=== PATIENT | male | born 1940 | race Caucasian/White ===

== ENCOUNTER 2020-01-23 13:34 | Emergency (ER) | payer MEDICARE, SELFPAY ==
--- NOTE | ~2020-01-23 | CT_ITS ---
EXAMINATION: CT brain wo con DATE: 01/23/2020 13:55 INDICATION: Dizziness. Head injury. TECHNIQUE: Computed tomography (CT) of the head was performed without intravenous contrast. The mA wa s adjusted according to patient size. Iterative reconstruction technique was employed. The dose-lengt h product was 681.00 mGy-cm. COMPARISON: Head CT 05/21/2015 FINDINGS: There are small old infarcts in the cerebellum bilaterally. There are scattered areas of lo w attenuation in the cerebral white matter. There is no intracranial hemorrhage, acute infarction, or abnormal intracranial mass lesion. The ventricles are normal in size. There are likely changes of oc ular lens replacement surgeries. There is mild mucosal thickening in the paranasal sinuses. The masto id air cells are normal. IMPRESSION: 1. Small old infarcts in the cerebellum. 2. Worsened moderate nonspecific cerebral white matter disease, which likely represents chronic small vessel ischemic disease. Reviewed, dictated and finalized at location A. IMPRESSION: 1. Small old infarcts in the cerebellum. 2. Worsened moderate nonspecific cerebral white matter disease, which likely re presents chronic small vessel ischemic disease.
--- NOTE | 2020-01-23 13:40 | ECG_ITS ---
Measurements Intervals [place] Rate: 73 P: 68 TN: 173 QRS: -27 QRSD: 85 T: 59 QT: 433 QTc: 480 Interpretive Statements SINUS RHYTHM ATRIAL AND VENTRICULAR PREMATURE COMPLEXES BORDERLINE ST-T WAVE ABNORMALITY- LATERAL LEADS BASELINE ARTIFACT- I, II, III, AVR, AVL, AVF, V1-V3 ABNORMAL ECG Electronically Signed On 01-23-2020 14:09:04 CDT by Chon Mckenzie D.O.
--- NOTE | 2020-01-23 13:43 | ED.FALL ---
HPI - Fall General Chief Complaint: Head Injury Stated Complaint: ambulance Time Seen by Provider: 01/23/20 13:35 Source: patient Mode of arrival: ambulatory Limitations: no limitations History of Present Illness HPI Narrative: 79-year-old man brought to the emergency department by EMS after he called because he was feeling dizzy. He described the dizziness as things moving back and forth in his vision. He fell this morning but he is unclear as to whether the dizziness started before or after he fell. He denies chest pain, loss consciousness, shortness breath, nausea, vomiting, neck pain, extremity pain, focal pain, abdominal pain, change in appetite, dysuria or recent cough or cold symptoms. EMS states that he was able to climb onto the stretcher and transfer from the stretcher to the ED [facility] without assistance. MD complaint: fall Onset (ago): hour(s) Fall from: standing Fall witnessed: no Place fall occurred: home Loss of consciousness: none Prolonged down time: no Symptoms prior to fall: dizziness Location of injury: head Severity: moderate Associated symptoms (after fall): vertigo Related Data Home Medications Medication Instructions Recorded Confirmed amlodipine 10 mg PO DAILY 01/23/20 01/23/20 tamsulosin 0.4 mg PO DAILY 01/23/20 01/23/20 Allergies Allergy/AdvReac Type Severity Reaction Status Date / Time No Known Allergies Allergy Verified 01/23/20 13:47 Review of Systems Constitutional: Constitutional: Denies chills, Denies fever(s) and Denies weakness Eyes: Eyes: Denies change in vision and Denies photophobia ENT: Denies dysphagia, Denies nasal congestion and Denies sore throat Cardiovascular: Cardiovascular: Denies chest pain, Denies rapid heart rate, Denies radiating jaw, neck or arm pain and Denies slow heart rate Respiratory: Respiratory: Denies cough, Denies dyspnea and Denies wheezing Gastrointestinal: Gastrointestinal: Denies abdominal pain, Denies diarrhea, Denies nausea and Denies vomiting Genitourinary: Genitourinary: Denies dysuria and Denies urinary frequency Integumentary/Breasts: Skin/Breast: Denies pruritus, Denies erythema and Denies rash Neurologic: Reports vertigo, Denies dizziness, Denies syncope, Denies focal weakness and Denies numbness Psychiatric: Psychiatric: Denies anxiety and Denies depression Endocrine: Endocrine: Denies polydipsia and Denies polyuria Allergic/Immunologic: Allergic/Immunologic: Denies lip swelling and Denies wheezing [facility] Past Medical History Medical History CVA (cerebral vascular accident) Prostate cancer Surgical History Surgical History History of hip surgery Social History Social History (Updated 01/23/20 @ 13:49 by Deuce Pandey MD) Smoking status: Never smoker Alcohol intake: never Substance use: never Living arrangements: with family Occupation/Education: retired Gender identity (if verbalized by the patient): Male Exam Const: General: no acute distress and alert Nutritional Appearance: thin Orientation/consciousness: patient oriented x3 Limitations: no limitations HENMT: Ears: external ears normal, TM's normal bilaterally and EAC's normal Mouth: Yes Normal oral and palatal mucosa present and Yes moist mucous membranes Throat: posterior oropharynx normal and uvula midline Eyes: Conjunctivae: conjunctivae normal Pupils: Equal, round and reactive pupils present EOM: EOMs intact bilaterally Neck: Neck: normal visual inspection and no lymphadenopathy Other: Nontender Resp: Effort & Inspection: normal respiratory effort and not labored Auscultation: clear to auscultation bilaterally, no rales, no rhonchi and no wheezes Cardio: Rate: regular rate Rhythm: regular rhythm Heart sounds: no murmurs GI: Auscultation: normal bowel sounds Other: nontender, nondistended. No masses. Skin: G
[2020-01-23 13:54] VITALS: PULSE 78; RESP 18; TEMP 36.6; O2SAT 100
[2020-01-23 14:07] LABS: Basophils Absolute Auto 0.04 K/mm3 (0.00-0.10); Basophils Percent Auto 0.8 % (0.0-1.0); Eosinophils Absolute Auto 0.17 K/mm3 (0.02-0.50); Eosinophils Percent Auto 3.3 % (1.0-6.0); Hematocrit 41.1 % (37.0-46.0); Hemoglobin 13.4 g/dL (12.4-15.3); Immature Granulocyte Absolute 0.02 K/mm3 (0.00-0.00); Immature Granulocyte Percent A 0.4 % (0.0-0.0); Lymphocytes Percent Auto 13.5 % (18.0-42.0); Mean Corpuscular HGB Conc 32.6 g/dL (32.0-36.0); Mean Corpuscular Hemoglobin 29.2 pg (27.0-31.0); Mean Corpuscular Volume 89.5 fL (78.0-102.0); Mean Platelet Volume 11.2 fl (8.7-11.0); Monocytes Absolute Auto 0.36 K/mm3 (0.10-0.90); Neutrophils Absolute Auto 3.9 K/mm3 (1.7-7.2); Platelet Count Result 150 K/mm3 (150-420); Red Blood Count 4.59 M/mm3 (4.70-6.10); Red Cell Distribution Width 14.2 % (11.6-14.4); White Blood Count 5.2 K/mm3 (4.8-10.8)
[2020-01-23 14:20] LABS: INR 1.1; Partial Thromboplastin Time 25.7 SEC (22.3-31.6); Prothrombin Time 10.9 Seconds (9.64-11.0)
[2020-01-23 14:24] LABS: Creatine Kinase 95 U/L (39-308); Troponin I < 0.02 ng/mL (0.00-0.056)
[2020-01-23 14:58] LABS: Alanine Aminotransferase 13 U/L (16-63); Albumin Level 3.6 g/dL (3.4-5.0); Alkaline Phosphatase 52 U/L (46-116); Anion Gap 15.3 mmol/L (7-16); Aspartate Amino Transferase 18 U/L (15-37); Bilirubin,Total 0.8 mg/dL (0.00-1.00); Blood Urea Nitrogen 15 mg/dL (7-18); Calcium 8.6 mg/dL (8.5-10.1); Carbon Dioxide 25 mmol/L (21-32); Chloride 105 mmol/L (98-108); Estimated CRCL calculation 38 ml/min; Estimated Glomerular Filt Rate 52; Glucose 112 mg/dL (70-99); Osmolality Calculated 295 mOsm/kg (285-295); Potassium 3.3 mmol/L (3.5-5.1); Sodium 142 mmol/L (136-145); Total Protein 6.9 g/dL (6.4-8.2)
[2020-01-23 15:41] VITALS: BP 118/84; PULSE 82; RESP 18; O2SAT 98
== END 2020-01-23 15:42 | disposition home or self-care (01) ==
PROVIDERS: Emergency Provider Emergency Medicine
DX: S09.90XA Unspecified injury of head, initial encounter (principal); R42 Dizziness and giddiness; E87.6 Hypokalemia; Z86.73 Personal history of transient ischemic attack (TIA), and cerebral infarction without residual deficits; Z85.46 Personal history of malignant neoplasm of prostate; W19.XXXA Unspecified fall, initial encounter
CPT/HCPCS: 36415; 70450; 80053; 82550; 84484; 85025; 85610; 85730; 93005; 99284

== ENCOUNTER 2020-02-15 08:54 | Outpatient (CLI) | payer MEDICARE, SELFPAY ==
[2020-02-15 09:30] LABS: Basophils Absolute Auto 0.05 K/mm3 (0.00-0.10); Basophils Percent Auto 0.9 % (0.0-1.0); Eosinophils Percent Auto 5.4 % (1.0-6.0); Hematocrit 37.5 % (37.0-46.0); Hemoglobin 11.9 g/dL (12.4-15.3); Immature Granulocyte Absolute 0.02 K/mm3 (0.00-0.00); Immature Granulocyte Percent A 0.4 % (0.0-0.0); Lymphocytes Percent Auto 19.9 % (18.0-42.0); Mean Corpuscular HGB Conc 31.7 g/dL (32.0-36.0); Mean Corpuscular Hemoglobin 29.2 pg (27.0-31.0); Mean Corpuscular Volume 92.1 fL (78.0-102.0); Mean Platelet Volume 11.2 fl (8.7-11.0); Monocytes Absolute Auto 0.49 K/mm3 (0.10-0.90); Monocytes Percent Auto 8.8 % (2.0-11.0); Neutrophils Absolute Auto 3.6 K/mm3 (1.7-7.2); Neutrophils Percent Auto 64.6 % (50.0-70.0); Platelet Count Result 157 K/mm3 (150-420); Red Blood Count 4.07 M/mm3 (4.70-6.10); Red Cell Distribution Width 14.6 % (11.6-14.4); White Blood Count 5.5 K/mm3 (4.8-10.8)
[2020-02-15 10:00] LABS: Blood Urea Nitrogen 30 mg/dL (7-18); Carbon Dioxide 29 mmol/L (21-32); Chloride 108 mmol/L (98-108); Cholesterol 144 mg/dL (0-200); Estimated Glomerular Filt Rate 47; Glucose 84 mg/dL (70-99); HDL Direct 53 mg/dL (40-60); LDL Cholesterol Calculated 81 mg/dL (<130); Osmolality Calculated 307 mOsm/kg (285-295); Sodium 146 mmol/L (136-145); Triglycerides 50 mg/dL (0-150)
== END 2020-02-15 08:55 | disposition home or self-care (01) ==
PROVIDERS: PCP Family Medicine; Visit Provider Family Medicine
DX: E78.2 Mixed hyperlipidemia (principal); I10 Essential (primary) hypertension; E83.42 Hypomagnesemia
CPT/HCPCS: 36415; 80048; 80061; 83735; 85025

== ENCOUNTER 2020-05-08 13:10 | Outpatient (CLI) | payer MEDICARE, SELFPAY ==
[2020-05-08 14:03] LABS: Alanine Aminotransferase 17 U/L (16-63); Albumin Level 3.7 g/dL (3.4-5.0); Alkaline Phosphatase 53 U/L (46-116); Anion Gap 15.2 mmol/L (7-16); Aspartate Amino Transferase 19 U/L (15-37); Blood Urea Nitrogen 22 mg/dL (7-18); Calcium 8.3 mg/dL (8.5-10.1); Carbon Dioxide 23 mmol/L (21-32); Chloride 103 mmol/L (98-108); Estimated Glomerular Filt Rate 35; Glucose 83 mg/dL (70-99); Osmolality Calculated 286 mOsm/kg (285-295); Potassium 4.2 mmol/L (3.5-5.1); Sodium 137 mmol/L (136-145); Total Protein 6.7 g/dL (6.4-8.2)
== END 2020-05-08 13:11 | disposition home or self-care (01) ==
LOC: CHSLAB 13:16
PROVIDERS: PCP Family Medicine; Visit Provider Urology
DX: N42.9 Disorder of prostate, unspecified (principal); N40.1 Benign prostatic hyperplasia with lower urinary tract symptoms
CPT/HCPCS: 36415; 80053; 84153

== ENCOUNTER 2020-05-26 10:14 | Outpatient (CLI) | payer MEDICARE, SELFPAY ==
[2020-05-26 10:41] LABS: Add Urine Microscopic? YES; Appearance Urine Clear (Clear); Basophils Absolute Auto 0.06 K/mm3 (0.00-0.10); Basophils Percent Auto 1.1 % (0.0-1.0); Bilirubin Urine 1+ (Negative); Blood Urine Negative (Negative); Color Urine Yellow (Yellow); Eosinophils Percent Auto 3.6 % (1.0-6.0); Glucose Urine UA Negative (Negative); Hematocrit 38.9 % (37.0-46.0); Hemoglobin 12.5 g/dL (12.4-15.3); Immature Granulocyte Absolute 0.02 K/mm3 (0.00-0.00); Immature Granulocyte Percent A 0.4 % (0.0-0.0); Ketones Urine Trace (Negative); Leukocyte Esterase Ur Negative (Negative); Lymphocytes Percent Auto 23.1 % (18.0-42.0); Mean Corpuscular HGB Conc 32.1 g/dL (32.0-36.0); Mean Corpuscular Hemoglobin 28.9 pg (27.0-31.0); Mean Platelet Volume 11.4 fl (8.7-11.0); Monocytes Absolute Auto 0.44 K/mm3 (0.10-0.90); Monocytes Percent Auto 7.8 % (2.0-11.0); Neutrophils Absolute Auto 3.6 K/mm3 (1.7-7.2); Nitrate Urine Negative (Negative); Platelet Count Result 156 K/mm3 (150-420); Protein Urine Negative (Negative); Red Blood Count 4.32 M/mm3 (4.70-6.10); Red Cell Distribution Width 13.5 % (11.6-14.4); Specific Grav Ur 1.025 (1.010-1.020); White Blood Count 5.6 K/mm3 (4.8-10.8); pH Urine 5.5 (5.0-8.0)
[2020-05-26 10:47] LABS: Bacteria Urine 1+ /hpf; RBC Urine 0-2 /hpf (0-2); Squamous Epithelial Cell Urine Few /hpf (Few); WBC Urine 0-3 /hpf (0-3)
[2020-05-26 10:50] LABS: MALB Creatinine Ratio 2.2 mg/g (0-30)
[2020-05-26 11:19] LABS: Alanine Aminotransferase 15 U/L (16-63); Albumin Level 3.4 g/dL (3.4-5.0); Alkaline Phosphatase 58 U/L (46-116); Anion Gap 6 mmol/L (8-16); Aspartate Amino Transferase 17 U/L (15-37); Bilirubin,Total 0.7 mg/dL (0.00-1.00); Blood Urea Nitrogen 28 mg/dL (7-18); Calcium 7.7 mg/dL (8.5-10.1); Carbon Dioxide 26 mmol/L (21-32); Chloride 105 mmol/L (98-108); Creatine Kinase 68 U/L (39-308); Estimated Glomerular Filt Rate 39; Glucose 94 mg/dL (70-99); Osmolality Calculated 289 mOsm/kg (285-295); Potassium 4.6 mmol/L (3.5-5.1); Sodium 137 mmol/L (136-145); Thyroid Stimulating Hormone 1.57 uIU/mL (0.36-3.74); Total Protein 6.6 g/dL (6.4-8.2)
== END 2020-05-26 10:15 | disposition home or self-care (01) ==
LOC: CHSLAB 10:16
PROVIDERS: PCP Family Medicine; Visit Provider Family Medicine
DX: E78.2 Mixed hyperlipidemia (principal); I10 Essential (primary) hypertension
CPT/HCPCS: 36415; 80053; 81001; 82043; 82550; 84443; 85025

== ENCOUNTER 2020-09-16 10:07 | Outpatient (CLI) | payer MEDICARE, SELFPAY ==
[2020-09-16 10:21] LABS: Basophils Absolute Auto 0.04 K/mm3 (0.00-0.10); Basophils Percent Auto 0.6 % (0.0-1.0); Eosinophils Percent Auto 1.6 % (1.0-6.0); Hematocrit 36.1 % (37.0-46.0); Hemoglobin 11.1 g/dL (12.4-15.3); Immature Granulocyte Absolute 0.03 K/mm3 (0.00-0.00); Immature Granulocyte Percent A 0.5 % (0.0-0.0); Lymphocytes Absolute Auto 0.89 K/mm3 (1.10-4.50); Lymphocytes Percent Auto 13.8 % (18.0-42.0); Mean Corpuscular HGB Conc 30.7 g/dL (32.0-36.0); Mean Corpuscular Hemoglobin 27.4 pg (27.0-31.0); Mean Corpuscular Volume 89.1 fL (78.0-102.0); Mean Platelet Volume 10.9 fl (8.7-11.0); Monocytes Absolute Auto 0.45 K/mm3 (0.10-0.90); Neutrophils Absolute Auto 4.9 K/mm3 (1.7-7.2); Neutrophils Percent Auto 76.5 % (50.0-70.0); Platelet Count Result 175 K/mm3 (150-420); Red Blood Count 4.05 M/mm3 (4.70-6.10); Red Cell Distribution Width 13.5 % (11.6-14.4); White Blood Count 6.4 K/mm3 (4.8-10.8)
[2020-09-16 11:07] LABS: Anion Gap 10 mmol/L (8-16); Blood Urea Nitrogen 25 mg/dL (7-18); Calcium 8.8 mg/dL (8.5-10.1); Carbon Dioxide 25 mmol/L (21-32); Chloride 102 mmol/L (98-108); Estimated Glomerular Filt Rate 41; Glucose 91 mg/dL (70-99); Osmolality Calculated 288 mOsm/kg (285-295); Potassium 4.4 mmol/L (3.5-5.1); Sodium 137 mmol/L (136-145)
== END 2020-09-16 10:08 | disposition home or self-care (01) ==
PROVIDERS: PCP Family Medicine; Visit Provider Family Medicine
DX: I10 Essential (primary) hypertension (principal)
CPT/HCPCS: 36415; 80048; 85025

== ENCOUNTER 2020-11-06 11:57 | Outpatient (CLI) | payer MEDICARE, SELFPAY ==
[2020-11-06 12:44] LABS: Alanine Aminotransferase 12 U/L (16-63); Albumin Level 3.7 g/dL (3.4-5.0); Alkaline Phosphatase 52 U/L (46-116); Anion Gap 8 mmol/L (8-16); Aspartate Amino Transferase 12 U/L (15-37); Bilirubin,Total 0.6 mg/dL (0.00-1.00); Blood Urea Nitrogen 27 mg/dL (7-18); Calcium 8.4 mg/dL (8.5-10.1); Carbon Dioxide 24 mmol/L (21-32); Chloride 103 mmol/L (98-108); Estimated Glomerular Filt Rate 35; Glucose 91 mg/dL (70-99); Osmolality Calculated 285 mOsm/kg (285-295); Potassium 4.4 mmol/L (3.5-5.1); Prostate Specific Antigen 8.8 ng/mL (< OR = 4.0); Sodium 135 mmol/L (136-145); Total Protein 6.9 g/dL (6.4-8.2)
== END 2020-11-06 11:58 | disposition home or self-care (01) ==
LOC: CHSLAB 12:00
PROVIDERS: PCP Family Medicine; Visit Provider Urology
DX: N40.1 Benign prostatic hyperplasia with lower urinary tract symptoms (principal); N40.3 Nodular prostate with lower urinary tract symptoms; N42.9 Disorder of prostate, unspecified
CPT/HCPCS: 36415; 80053; 84153

== ENCOUNTER 2020-12-22 09:37 | Outpatient (CLI) | payer MEDICARE, SELFPAY ==
[2020-12-22 10:01] LABS: Basophils Absolute Auto 0.06 K/mm3 (0.00-0.10); Basophils Percent Auto 1.1 % (0.0-1.0); Eosinophils Absolute Auto 0.11 K/mm3 (0.02-0.50); Hematocrit 34.4 % (37.0-46.0); Hemoglobin 10.3 g/dL (12.4-15.3); Immature Granulocyte Absolute 0.03 K/mm3 (0.00-0.00); Immature Granulocyte Percent A 0.6 % (0.0-0.0); Lymphocytes Absolute Auto 0.78 K/mm3 (1.10-4.50); Lymphocytes Percent Auto 14.4 % (18.0-42.0); Mean Corpuscular HGB Conc 29.9 g/dL (32.0-36.0); Mean Corpuscular Volume 83.5 fL (78.0-102.0); Mean Platelet Volume 10.2 fl (8.7-11.0); Monocytes Absolute Auto 0.34 K/mm3 (0.10-0.90); Monocytes Percent Auto 6.3 % (2.0-11.0); Neutrophils Absolute Auto 4.1 K/mm3 (1.7-7.2); Neutrophils Percent Auto 75.6 % (50.0-70.0); Platelet Count Result 166 K/mm3 (150-420); Red Blood Count 4.12 M/mm3 (4.70-6.10); White Blood Count 5.4 K/mm3 (4.8-10.8)
[2020-12-22 11:05] LABS: Anion Gap 8 mmol/L (8-16); Blood Urea Nitrogen 18 mg/dL (7-18); Carbon Dioxide 26 mmol/L (21-32); Chloride 102 mmol/L (98-108); Estimated Glomerular Filt Rate 35; Glucose 90 mg/dL (70-99); Osmolality Calculated 283 mOsm/kg (285-295); Potassium 4.6 mmol/L (3.5-5.1); Sodium 136 mmol/L (136-145); Thyroid Stimulating Hormone 2.22 uIU/mL (0.36-3.74)
[2020-12-22 14:34] LABS: MALB Creatinine Ratio 12.5 mg/g (0-30); Microalbumin Urine Random 37.5 mg/L
== END 2020-12-22 09:38 | disposition home or self-care (01) ==
LOC: CHSLAB 09:40
PROVIDERS: PCP Family Medicine; Visit Provider Family Medicine
DX: I10 Essential (primary) hypertension (principal)
CPT/HCPCS: 36415; 80048; 82043; 84443; 85025

== ENCOUNTER 2021-04-16 10:32 | Outpatient (CLI) | payer MEDICARE, SELFPAY ==
[2021-04-16 10:43] LABS: Basophils Absolute Auto 0.04 K/mm3 (0.00-0.10); Basophils Percent Auto 0.8 % (0.0-1.0); Eosinophils Absolute Auto 0.06 K/mm3 (0.02-0.50); Eosinophils Percent Auto 1.2 % (1.0-6.0); Hematocrit 35.6 % (37.0-46.0); Immature Granulocyte Absolute 0.01 K/mm3 (0.00-0.00); Immature Granulocyte Percent A 0.2 % (0.0-0.0); Lymphocytes Absolute Auto 0.61 K/mm3 (1.10-4.50); Lymphocytes Percent Auto 11.9 % (18.0-42.0); Mean Corpuscular HGB Conc 30.9 g/dL (32.0-36.0); Mean Corpuscular Hemoglobin 25.5 pg (27.0-31.0); Mean Corpuscular Volume 82.6 fL (78.0-102.0); Mean Platelet Volume 10.3 fl (8.7-11.0); Monocytes Absolute Auto 0.34 K/mm3 (0.10-0.90); Monocytes Percent Auto 6.7 % (2.0-11.0); Neutrophils Absolute Auto 4.1 K/mm3 (1.7-7.2); Neutrophils Percent Auto 79.2 % (50.0-70.0); Platelet Count Result 156 K/mm3 (150-420); Red Blood Count 4.31 M/mm3 (4.70-6.10); Red Cell Distribution Width 15.7 % (11.6-14.4); White Blood Count 5.1 K/mm3 (4.8-10.8)
[2021-04-16 11:10] LABS: Alanine Aminotransferase 14 U/L (16-63); Albumin Level 3.5 g/dL (3.4-5.0); Alkaline Phosphatase 60 U/L (46-116); Anion Gap 11 mmol/L (8-16); Aspartate Amino Transferase 13 U/L (15-37); Bilirubin,Total 0.7 mg/dL (0.00-1.00); Blood Urea Nitrogen 17 mg/dL (7-18); Carbon Dioxide 23 mmol/L (21-32); Chloride 105 mmol/L (98-108); Estimated Glomerular Filt Rate 42; Glucose 95 mg/dL (70-99); Osmolality Calculated 289 mOsm/kg (285-295); Potassium 4.5 mmol/L (3.5-5.1); Sodium 139 mmol/L (136-145); Total Protein 6.7 g/dL (6.4-8.2)
[2021-04-16 11:15] LABS: Calcium 8.2 mg/dL (8.5-10.1)
== END 2021-04-16 10:33 | disposition home or self-care (01) ==
LOC: CHSLAB 10:35
PROVIDERS: PCP Family Medicine; Visit Provider Family Medicine
DX: I10 Essential (primary) hypertension (principal)
CPT/HCPCS: 36415; 80053; 85025

== ENCOUNTER 2021-05-01 10:02 | Outpatient (CLI) | payer MEDICARE, SELFPAY ==
[2021-05-01 11:24] LABS: Alanine Aminotransferase 16 U/L (16-63); Albumin Level 3.7 g/dL (3.4-5.0); Alkaline Phosphatase 56 U/L (46-116); Anion Gap 12 mmol/L (8-16); Aspartate Amino Transferase 13 U/L (15-37); Bilirubin,Total 0.7 mg/dL (0.00-1.00); Blood Urea Nitrogen 21 mg/dL (7-18); Calcium 8.6 mg/dL (8.5-10.1); Carbon Dioxide 24 mmol/L (21-32); Chloride 105 mmol/L (98-108); Estimated Glomerular Filt Rate 41; Glucose 89 mg/dL (70-99); Osmolality Calculated 294 mOsm/kg (285-295); Potassium 4.5 mmol/L (3.5-5.1); Prostate Specific Antigen 9.4 ng/mL (< OR = 4.0); Sodium 141 mmol/L (136-145); Total Protein 6.7 g/dL (6.4-8.2)
== END 2021-05-01 10:03 | disposition home or self-care (01) ==
PROVIDERS: PCP Family Medicine; Visit Provider Urology
DX: N42.9 Disorder of prostate, unspecified (principal); N40.1 Benign prostatic hyperplasia with lower urinary tract symptoms
CPT/HCPCS: 36415; 80053; 84153

== ENCOUNTER 2021-06-09 15:47 | Outpatient (CLI) | payer MEDICARE, SELFPAY ==
[2021-06-09 16:36] LABS: Basophils Absolute Auto 0.04 K/mm3 (0.00-0.10); Basophils Percent Auto 0.4 % (0.0-1.0); Eosinophils Absolute Auto 0.06 K/mm3 (0.02-0.50); Eosinophils Percent Auto 0.7 % (1.0-6.0); Hematocrit 36.2 % (37.0-46.0); Hemoglobin 11.4 g/dL (12.4-15.3); Immature Granulocyte Absolute 0.05 K/mm3 (0.00-0.00); Immature Granulocyte Percent A 0.5 % (0.0-0.0); Lymphocytes Absolute Auto 0.94 K/mm3 (1.10-4.50); Lymphocytes Percent Auto 10.2 % (18.0-42.0); Mean Corpuscular HGB Conc 31.5 g/dL (32.0-36.0); Mean Corpuscular Volume 82.6 fL (78.0-102.0); Monocytes Absolute Auto 0.66 K/mm3 (0.10-0.90); Monocytes Percent Auto 7.2 % (2.0-11.0); Neutrophils Absolute Auto 7.5 K/mm3 (1.7-7.2); Platelet Count Result 176 K/mm3 (150-420); Red Blood Count 4.38 M/mm3 (4.70-6.10); Red Cell Distribution Width 16.2 % (11.6-14.4); White Blood Count 9.2 K/mm3 (4.8-10.8)
[2021-06-09 16:38] LABS: Add Urine Microscopic? YES; Appearance Urine Clear (Clear); Bilirubin Urine 2+ (Negative); Blood Urine Negative (Negative); Color Urine Yellow (Yellow); Glucose Urine UA Negative (Negative); Ketones Urine 1+ (Negative); Leukocyte Esterase Ur Negative LEU/UL (Negative); Nitrate Urine Negative (Negative); Protein Urine Trace (Negative); Specific Grav Ur >= 1.030 (1.010-1.020); Urobilinogen Urine 0.2 mg/dL (0.2-1.0); pH Urine 5.5 (5.0-8.0)
[2021-06-09 16:45] LABS: Bacteria Urine 2+ /hpf; Mucus Urine Few /lpf; RBC Urine 0-2 /hpf (0-2); Squamous Epithelial Cell Urine Few /hpf (Few); WBC Urine 0-3 /hpf (0-3)
[2021-06-09 16:55] LABS: Alanine Aminotransferase 19 U/L (16-63); Albumin Level 3.4 g/dL (3.4-5.0); Alkaline Phosphatase 48 U/L (46-116); Anion Gap 14 mmol/L (8-16); Aspartate Amino Transferase 21 U/L (15-37); Bilirubin,Total 1.2 mg/dL (0.00-1.00); Blood Urea Nitrogen 24 mg/dL (7-18); Calcium 8.2 mg/dL (8.5-10.1); Carbon Dioxide 22 mmol/L (21-32); Chloride 103 mmol/L (98-108); Creatine Kinase 213 U/L (39-308); Estimated Glomerular Filt Rate 36; Glucose 93 mg/dL (70-99); Osmolality Calculated 292 mOsm/kg (285-295); Potassium 3.8 mmol/L (3.5-5.1); Sodium 139 mmol/L (136-145); Troponin I 18.3 ng/L (0.00-60.4)
[2021-06-09 17:24] LABS: SARS-CoV-2 RNA PCR Negative (Negative)
[2021-06-11 11:30] LABS: Amylase 17 U/L (25-115); Lipase 13 U/L (73-393); Magnesium 1.6 mg/dL (1.8-2.4)
== END 2021-06-09 15:48 | disposition home or self-care (01) ==
LOC: CHSLAB 15:52
PROVIDERS: PCP Family Medicine; Visit Provider Nurse Practitioner Family
DX: R19.7 Diarrhea, unspecified (principal); R11.0 Nausea; Z20.822 Contact with and (suspected) exposure to COVID-19; R07.9 Chest pain, unspecified; E83.42 Hypomagnesemia; N18.30 Chronic kidney disease, stage 3 unspecified
CPT/HCPCS: 36415; 80053; 81001; 82150; 82550; 82553; 83690; 83735; 84484; 85025; C9803; U0003; U0005

== ENCOUNTER 2021-06-11 09:11 | Outpatient (CLI) | payer MEDICARE, SELFPAY ==
--- NOTE | ~2021-06-11 | CT_ITS ---
EXAMINATION: CT abdomen pelvis wo con EXAM DATE: 06/11/2021 09:56 INDICATION: Intermittent abdominal pain, left upper quadrant fullness. TECHNIQUE: Spiral CT of the abdomen and pelvis was performed without contrast. Axial, coronal and s agittal images of the abdomen and pelvis were reviewed. The dose-length product (DLP) for this exami nation was 239.65 mGy-cm. The exposure was tailored according to patient size (auto mA exposure cont rol), and iterative reconstruction (ASIR) was used as additional dose reduction technique. Correlatio n is made to CT pelvis 06/07/2016 FINDINGS: Cecum and ascending colon has telescoped into the transverse and descending colon, intussus ception for about 40 cm in length. This has also pulled the terminal ileum into the intussuscipiens. The appendix is located at the cecal base, the deepest aspect of the intussusception. Could be from underlying cecal mass. Recommend emergent surgical consult. The liver, spleen, adrenal glands and pancreas are unremarkable. Some generalized abdominal fat stra nding, small amount of pericholecystic fluid which is suspected most likely reactive. No calcified ch olelithiasis or gallbladder distention. Spleen, liver, pancreas are unremarkable. There is no nephro lithiasis or hydronephrosis. Mild to moderate prostatomegaly. Some diffuse bladder wall thickening , could indicate chronic cystitis. Acute cystitis not excludable. There is no retroperitoneal or pel rajesh lymphadenopathy. There is mild scattered arteriosclerotic disease. The stomach and small bowel are unremarkable. No free intraperitoneal gas. Heart is normal in siz e. Small pericardial effusion. The lung bases are unremarkable. There are no osteoblastic or osteol ytic lesions identified. 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 IMPRESSION: Large segment colonic intussusception. Recommend surgical reduction, evaluating for under lying lead point mass. I discussed intussusception, recommendation for emergent surgical consultation with Allan olguin MD at 06/11/2021 14:57 CDT. Reviewed, dictated and finalized at location A. IMPRESSION: Large segment colonic intussusception. Recommend surgical reduction , evaluating for underlying lead point mass. I discussed intussusception, recommendation for emergent surgical consultation with Allan Gallardo MD at 06/11/2021 14:57 CDT.
== END 2021-06-11 09:12 | disposition home or self-care (01) ==
LOC: CHSIMG 09:13
PROVIDERS: PCP Family Medicine; Visit Provider Family Medicine
DX: R10.9 Unspecified abdominal pain (principal); K56.1 Intussusception
CPT/HCPCS: 74176

== ENCOUNTER 2021-06-11 15:56 | Inpatient (IN) | payer MEDICARE, SELFPAY ==
[2021-06-11] VITALS (8 sets, daily range): BP systolic 113–166; BP diastolic 69–93; PULSE 87–102; RESP 16–18; TEMP 36.3–37; O2SAT 98–100; BMI 18.9
--- NOTE | ~2021-06-11 | XR_ITS ---
EXAMINATION: XR abdomen/kub 1V INDICATION: Ileus, abdominal distention TECHNIQUE: Supine view of the abdomen is obtained. COMPARISON: 06/15/2021 FINDINGS: The nasogastric tube is in the stomach. There are multiple dilated loops of small bowel. Mi dline surgical lana are noted. There are changes of prior left pelvic surgery. No definite free in traperitoneal gas is identified. A surgical anastomosis is noted in the right abdomen. IMPRESSION: 1. Dilated small bowel, likely postoperative ileus. Reviewed, dictated and finalized at location A.
--- NOTE | ~2021-06-11 | XR_ITS ---
XR chest 2V DATE: 06/11/2021 16:58 INDICATION: Midsternal the lower chest pain. Hypertension. TECHNIQUE: AP and lateral views COMPARISON: 03/14/2019 AP and lateral chest FINDINGS: There is moderate bilateral hyperinflation. No pulmonary infiltrate or consolidation, pleur al effusion or pulmonary vascular congestion or pneumothorax. Normal heart size. Aortic calcification, ectasia and tortuosity. No hilar or mediastinal enlargement. Diffuse osteopenia. Dextroscoliosis and mild degenerative spurring of the thoracic spine. IMPRESSION: Bilateral hyperinflation; no active cardiopulmonary disease Reviewed, dictated and finalized at location A.
--- NOTE | ~2021-06-11 | XR_ITS ---
EXAMINATION: XR enema water soluble EXAM DATE: 06/12/2021 13:07 INDICATION: Intussusception TECHNIQUE: Fluoroscopy used during XR enema water soluble performed by Dr. Jose Mo. Total fluo roscopic time of 1.0 minutes. The DAP for this procedure was 8.2 mGym2. A total of 84 images sent t o PACS from the exam. Correlation is made to CT abdomen pelvis from yesterday. FINDINGS: CT scan demonstrated intussusception of the cecum and terminal ileum into the colon to the mid descending colonic level. Tortuosity of the sigmoid colon. Intussusception was encountered at the mid descending colon. Entire bag of 2 L of water-soluble contrast solution was administered and the intussuscipiens pushed back to the splenic flexure, but not through the splenic flexure or transverse colon. Patient did experience discomfort at this amount of distention and pressure. There was no contrast extravasation. Upon evac uation of contrast the intussusception returned to the location it was at the beginning of procedure. Correlate with procedure note. IMPRESSION: Colonic intussusception, unsuccessful reduction attempt. Reviewed, dictated and finalized at location A.
--- NOTE | ~2021-06-11 | XR_ITS ---
EXAMINATION: XR chest 1V portable INDICATION: Shortness of breath, increased oxygen requirements TECHNIQUE: Portable AP chest at 0334 hours COMPARISON: 06/11/2021 FINDINGS: There are minimal opacities of the left lung base. No pneumothorax is identified. There is a questionable small left pleural effusion. The heart size is normal. IMPRESSION: 1. Left basilar airspace opacities, consistent with atelectasis versus pneumonia. Reviewed, dictated and finalized at location A. IMPRESSION: 1. Left basilar airspace opacities, consistent with atelectasis versus pneumoni a.
--- NOTE | ~2021-06-11 | XR_ITS ---
EXAMINATION: XR abdomen NG/feed tube insert INDICATION: Nasogastric tube placement TECHNIQUE: Portable AP KUB-NG at 0713 hours COMPARISON: 06/12/2021 FINDINGS: The nasogastric tube is in the stomach. A small amount of free intraperitoneal gas is prese nt in the upper abdomen. Loops of small bowel are upper limits of normal in caliber. A suture line is noted in the right abdomen. IMPRESSION: 1. Nasogastric tube in the stomach. 2. Free intraperitoneal gas, likely postoperative. Reviewed, dictated and finalized at location A.
--- NOTE | ~2021-06-11 | US_ITS ---
EXAMINATION: US venous doppler [facility] DATE: 06/18/2021 15:43 INDICATION: Lower limb edema. TECHNIQUE: Grayscale ultrasound images without and with compression and Doppler ultrasound images of the bilateral lower extremity veins were obtained. COMPARISON: None. FINDINGS: The visualized portions of right common femoral vein, profunda (deep) femoral vein, femoral vein, pop liteal vein, peroneal veins, posterior tibial veins, and greater saphenous vein outflow are patent. T here is a moderate-sized right-sided Angeles's cyst. The visualized portions of left common femoral vein, profunda femoral vein, femoral vein, popliteal v ein, peroneal veins, posterior tibial veins, and greater saphenous vein outflow are patent. IMPRESSION: 1. No deep venous thrombosis. 2. Moderate-sized right-sided Angeles's cyst. Reviewed, dictated and finalized at location A.
--- NOTE | ~2021-06-11 | XR_ITS ---
EXAMINATION: XR abdomen/kub 1V EXAM DATE: 06/18/2021 09:45 INDICATION: Post-op right hemicolectomy for intussusception, postoperative vomiting and ileus. TECHNIQUE: Frontal projection(s) of the abdomen for interpretation. Comparison is made to prior exami nation from 06/16/2021. FINDINGS: Significant interval improvement in previously seen multiple loops of dilated air-filled sm all bowel, ileus. Nonspecific, nonobstructive bowel gas pattern today. There are laparotomy lana. Left pelvic hardware. There are bony degenerative changes. IMPRESSION: Normalization of bowel gas pattern. Reviewed, dictated and finalized at location B.
--- NOTE | 2021-06-11 16:41 | ED.ABDPAIN ---
HPI - Abdominal Pain General Chief Complaint: Abdominal Pain <JERRY Carreon Last Filed: 06/11/21 18:43> Stated Complaint: abdominal pain <JERRY Carreon Last Filed: 06/11/21 18:43> Time Seen by Provider: 06/11/21 16:28 <JERRY Carreon Last Filed: 06/11/21 18:43> Source: patient <JERRY Carreon Last Filed: 06/11/21 18:43> Mode of arrival: ambulatory <JERRY Carreon Last Filed: 06/11/21 18:43> Limitations: no limitations <JERRY Carreon Last Filed: 06/11/21 18:43> History of Present Illness HPI narrative: This is a 80 year old male that presents to the ER for intermittent abdominal pain x 1 week. Reports the pain is in the lower abdomen. He has not had a BM in two days. Also reports chest pain over the last week intermittently. No provoking or alleviating factors. He denies any pain currently. Denies fever, shortness of breath, nausea, vomiting, or diarrhea. <JERRY Carreon Last Filed: 06/11/21 18:43> Related Data Home Medications: Home Medications Medication Instructions Recorded Confirmed tamsulosin 0.4 mg PO DAILY 01/23/20 06/12/21 amlodipine 5 mg PO DAILY 06/12/21 06/12/21 <JERRY Carreon Last Filed: 06/11/21 18:43> Allergies/Adverse Reactions: Allergies Allergy/AdvReac Type Severity Reaction Status Date / Time No Known Allergies Allergy Verified 06/11/21 21:48 <JERRY Carreon Last Filed: 06/11/21 18:43> Review of Systems Review of Systems: CONSTITUTIONAL: Denies fever CARDIOVASCULAR: Reports chest pain. Denies edema. RESPIRATORY: Denies cough or dyspnea. GASTROINTESTINAL: Reports abdominal pain, nausea, vomiting. Denies diarrhea. GENITOURINARY: Denies dysuria or hematuria. <JERRY Carreon Last Filed: 06/11/21 18:43> All systems reviewed & are unremarkable except as noted in HPI and below <Mihaela Stephenson PA-C - Last Filed: 06/11/21 18:43> [facility] Past Medical History Medical History: Medical History (Updated 06/14/21 @ 11:26 by Ananda Sloan MD) Constipated COPD (chronic obstructive pulmonary disease) CVA (cerebral vascular accident) Enlarged prostate History of hypertension HTN (hypertension), malignant Lower abdominal pain <Mihaela Stephenson PA-C - Last Filed: 06/11/21 18:43> Surgical History Surgical History: Surgical History History of tonsillectomy <Mihaela Stephenson PA-C - Last Filed: 06/11/21 18:43> Family History Family History: Family History Father Lung cancer Mother Lymphoma <Mihaela Stephenson PA-C - Last Filed: 06/11/21 18:43> Social History Social History: Social History Social History: the patient is and has no children. 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 his friend Darell Marks is a durable power manager orange for healthcare and the patient desires to be a DNR. The patient is a lifelong nonsmoker. He does not use any illicit drugs or alcohol. Smoking status: Never smoker Second hand tobacco smoke exposure: No Alcohol intake: never Substance use: never Substance use type: does not use Gender identity (if verbalized by the patient): Male Sexual Orientation (if Verbalized by the Patient): Straight or Heterosexual Spiritual care concerns: No <JERRY Carreon Last Filed: 06/11/21 18:43> Exam Narrative: GENERAL: Elderly, well-nourished, and in no acute distress. HEAD: Normocephalic, atraumatic. EYES: EOMI. CHEST: Clear to auscultation. No respiratory distress. No wheezes rales or rhonchi HEART: Regular rate and rhythm. No murmur heard. Normal peripheral pulses. ABDOMEN: Soft, nontender, nondistended, normal active bowel sounds. EXTREMITIES: Normal range of motion. No edema. SKIN: Warm, dry, no rash. NEURO: No focal defic
--- NOTE | 2021-06-11 16:45 | ECG_ITS ---
Measurements Intervals [place] Rate: 88 P: 29 NE: 148 QRS: -57 QRSD: 93 T: 74 QT: 367 QTc: 446 Interpretive Statements SINUS RHYTHM INCOMPLETE RIGHT BUNDLE BRANCH BLOCK LEFT ANTERIOR FASCICULAR BLOCK BASELINE WANDER- I, V6 ABNORMAL ECG Electronically Signed On 06-12-2021 6:22:42 CDT by Chon Mckenzie D.O.
[2021-06-11 17:30] LABS: Basophils Absolute Auto 0.1 K/mm3 (0.0-0.1); Basophils Percent Auto 0.5 % (0.2-1.2); Eosinophils Absolute Auto 0.1 K/mm3 (0-0.3); Eosinophils Percent Auto 1.4 % (0-4.4); Hematocrit 38.5 % (42.0-52.0); Hemoglobin 11.9 g/dL (14.0-18.0); Immature Granulocyte Absolute 0.06 K/mm3 (0.00-0.031); Immature Granulocyte Percent A 0.6 % (0-0.5); Lymphocytes Absolute Auto 0.69 K/mm3 (0.9-3.2); Lymphocytes Percent Auto 6.9 % (18.3-44.2); Mean Corpuscular HGB Conc 30.9 g/dl (32-36); Mean Corpuscular Hemoglobin 25.8 pg (26-34); Mean Corpuscular Volume 83.5 fl (80-100); Mean Platelet Volume 11.2 fl (7.4-10.4); Monocytes Absolute Auto 0.8 K/mm3 (0.1-0.6); Monocytes Percent Auto 8.1 % (2.6-8.5); Neutrophils Absolute Auto 8.3 K/mm3 (1.3-6.7); Neutrophils Percent Auto 82.5 % (45.5-73.1); Platelet Count Result 171 k/mm3 (150-375); Red Blood Count 4.61 M/mm3 (4.6-6.20); Red Cell Distribution Width 16.6 % (11.5-14.5)
[2021-06-11 17:44] LABS: INR 1.1; Partial Thromboplastin Time 27.6 SECONDS (22.3-36.8); Prothrombin Time 14.2 Seconds (11.1-14.7)
--- NOTE | 2021-06-11 17:44 | PC.NURSE ---
Pts friend Darell can be reached at [phone]
[2021-06-11 18:01] LABS: Alanine Aminotransferase 17 U/L (4-50); Alkaline Phosphatase 56 U/L (38-126); Anion Gap 11 mmol/L (8-16); Aspartate Amino Transferase 23 U/L (17-59); Bilirubin,Total 1.5 mg/dL (0.2-1.3); Blood Urea Nitrogen 31 mg/dL (9-20); Calcium 8.7 mg/dL (8.4-10.2); Carbon Dioxide 23 mmol/L (22-30); Chloride 100 mmol/L (98-107); Estimated CRCL calculation 31 ml/min; Estimated Glomerular Filt Rate 42; Glucose 100 mg/dL (65-110); Lipase 13 U/L (23-300); Potassium 3.7 mmol/L (3.4-5.0); Sodium 134 mmol/L (137-145)
[2021-06-11 18:11] LABS: Add Urine Microscopic? YES; Appearance Urine Cloudy (Clear); Bilirubin Urine 1+ (Negative); Blood Urine Negative (Negative); Color Urine Amber (Yellow); Glucose Urine UA Negative (Negative); Hyaline Casts Urine 30-49 /lpf; Ketones Urine Trace mg/dL (Negative); Leukocyte Esterase Ur 1+ LEU/UL (Negative); Mucus Urine Heavy /lpf; Nitrate Urine Negative (Negative); Protein Urine 1+ mg/dL (Negative); RBC Urine 0-2 /hpf (0-2); Specific Grav Ur 1.027 (1.001-1.035); Squamous Epithelial Cell Urine Many /hpf (Few); WBC Urine 0-3 /hpf
[2021-06-11 18:22] LABS: Troponin I 0.013 ng/mL (0.000-0.034)
[2021-06-11] MEDS: SODIUM CHLORIDE 0.9% IV 1,000 ML 999 ML IV CONT (18:24)
[2021-06-11 19:09] LABS: Lactic Acid Reflex 1.2 mmol/L (0.7-2.1)
[2021-06-11 19:21] LABS: Troponin I < 0.012 ng/mL (0.000-0.034)
--- NOTE | 2021-06-11 21:18 | PM.IMHP ---
H&P: HPI History of Present Illness Date/Time: 06/11/21 21:18Thioracio is an 80-year-old male patient who lives home alone. The patient stated that he has been having intermittent chest pain and lower abdominal pain for on and off for approximately week and half. Patient stated that he has not had any history of coronary artery disease. The patient stated he had his last bowel movement 2 days ago. The patient denies any fever chills any nausea vomiting or diarrhea. Abdominal pelvis CT was read as intussusception, recommendation for emergent surgical consult. Surgery was consulted and recommended GI be consulted. The patient was started on IV fluids. H&H is 11.9 and 38.5 which is his baseline. BUN 31 creatinine 1.6 which is his baseline as well. Troponin is negative. EKG was read as sinus rhythm atrial and ventricular premature complexes. Patient is being admitted to observation status on the date of service of 06/11/2021. Chief Complaint: abdominal pain Review of Systems Review of Systems: All systems reviewed & are unremarkable except as noted in HPI and below Constitutional: Constitutional: Reports as per HPI and Reports no additional constitutional complaints Eyes: Eyes: Reports as per HPI and Reports no additional eye complaints ENT: Reports system reviewed and no additional complaints, except as documented and Reports Normal hearing present Cardiovascular: Cardiovascular: Reports no additional cardiovascular complaints Respiratory: Respiratory: Reports no additional respiratory complaints and Reports no additional respiratory complaints Gastrointestinal: Gastrointestinal: Reports as per HPI and Reports no additional gastrointestinal complaints Musculoskeletal: Musculoskeletal: Reports no additional musculoskeletal complaints Integumentary/Breasts: Skin/Breast: Reports system reviewed and no additional complaints, except as docu and Reports as per HPI Neurologic: Reports system reviewed and no additional complaints, except as documented, Reports as per HPI and Reports Normal hearing present Psychiatric: Psychiatric: Reports no additional psychiatric complaints and Reports as per HPI Endocrine: Endocrine: Reports no additional endocrine complaints Hematologic/Lymphatic: Hematologic/Lymphatic: Reports no additional hematologic/lymphatic complaints Allergic/Immunologic: Allergic/Immunologic: Reports no additional allergic/immunologic complaints [facility] Past Medical History Medical History (Updated 06/11/21 @ 21:38 by Jessica Oliver NP) CVA (cerebral vascular accident) Enlarged prostate History of hypertension HTN (hypertension), malignant Surgical History Surgical History (Updated 06/11/21 @ 21:23 by Jessica Oliver NP) History of tonsillectomy Family History Family History (Updated 06/11/21 @ 21:24 by Jessica Oliver NP) Father Lung cancer Mother Lymphoma Social History Social History (Updated 06/11/21 @ 21:26 by Jessica Oliver NP) Social History: the patient is and has no children. 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 his friend Darell Marks is a durable power contracts attorney for healthcare and the patient desires to be a DNR. The patient is a lifelong nonsmoker. He does not use any illicit drugs or alcohol. Smoking status: Never smoker Alcohol intake: never Substance use: never Gender identity (if verbalized by the patient): Male Meds Home Medications and Allergies Home Medications Medication Instructions Recorded Confirmed Type amlodipine 10 mg PO DAILY 01/23/20 01/23/20 History potassium chloride 20 meq PO DAILY #5 tablet 01/23/20 Rx tamsulosin 0.4 mg PO DAILY 01/23/20 01/23/20 History Allergies Allergy/AdvReac Type Severity Reaction Status Date / Time No Known Allergies Allergy Verified 01/23/20 13:47 Vital Signs Vital Signs - 24 hr 06/11/21 16:09 06/11/21 20:09 06/11/21 21:16 Temperature 37.0 C 36.4 C Pulse Rate 91 90 101 H Respiratory Rate 1
--- NOTE | 2021-06-11 21:29 | ADMGEN ---
This patient, Nader Zapata, was admitted to IMU Room 213-01 on 06/11/21 at 2105. Patient/family oriented to hospital policies and general routines including ID bracelet, bed and alarms, visiting hours, pain management, procedures, bathroom and other care routines, personal items, smoking policy, room service/diet, and visiting hours. Information on how to activate the Rapid Response Team has been discussed. Patient/Family are encouraged to report perceived risks to care and to ask questions if they do not understand what they are told or what they should do.
[2021-06-11] MEDS: SODIUM CHLORIDE 0.9% IV 1,000 ML 100 ML IV CONT (22:18)
--- NOTE | 2021-06-11 23:31 | PM.IMHP ---
H&P: HPI History of Present Illness Date/Time: 06/11/21 23:31 Pt is a 80 y/o M presenting to ED c/o diffuse abd pain over last wk and a half. Pt reports pain is intermittent and sometimes quite severe. Pt reports some intermittent nausea and emesis. Pt has had bowel fxn although nothing over last 2 days. Pt states pain is most severe in lower abdomen. Pt denies previous episodes. Chief Complaint: abdominal pain Review of Systems Constitutional: Constitutional: Denies anorexia, Denies body ache(s), Denies chills, Reports fatigue, Denies fever(s), Denies increased appetite, Reports lethargy, Denies malaise, Reports poor appetite, Denies weakness, Denies weight gain and Denies weight loss Eyes: Eyes: Reports no additional eye complaints ENT: Reports system reviewed and no additional complaints, except as documented Cardiovascular: Cardiovascular: Reports no additional cardiovascular complaints Respiratory: Respiratory: Reports no additional respiratory complaints Gastrointestinal: Gastrointestinal: Reports as per HPI, Reports abdominal pain, Reports GI cramping, Reports nausea and Reports vomiting Genitourinary: Genitourinary: Reports no additional male genitourinary complaints Musculoskeletal: Musculoskeletal: Reports no additional musculoskeletal complaints Integumentary/Breasts: Skin/Breast: Reports system reviewed and no additional complaints, except as docu Neurologic: Reports system reviewed and no additional complaints, except as documented Psychiatric: Psychiatric: Reports no additional psychiatric complaints Endocrine: Endocrine: Reports no additional endocrine complaints Hematologic/Lymphatic: Hematologic/Lymphatic: Reports no additional hematologic/lymphatic complaints Allergic/Immunologic: Allergic/Immunologic: Reports no additional allergic/immunologic complaints [facility] Past Medical History Medical History CVA (cerebral vascular accident) Enlarged prostate History of hypertension HTN (hypertension), malignant Surgical History Surgical History History of tonsillectomy Family History Family History Father Lung cancer Mother Lymphoma Social History Social History Social History: the patient is and has no children. 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 his friend Darell Marks is a durable power primary class teacher for healthcare and the patient desires to be a DNR. The patient is a lifelong nonsmoker. He does not use any illicit drugs or alcohol. Smoking status: Never smoker Second hand tobacco smoke exposure: No Alcohol intake: never Substance use: never Substance use type: does not use Gender identity (if verbalized by the patient): Male Sexual Orientation (if Verbalized by the Patient): Straight or Heterosexual Spiritual care concerns: No Meds Home Medications and Allergies Home Medications Medication Instructions Recorded Confirmed Type potassium chloride 20 meq PO DAILY #5 tablet 01/23/20 Rx tamsulosin 0.4 mg PO DAILY 01/23/20 01/23/20 History Allergies Allergy/AdvReac Type Severity Reaction Status Date / Time No Known Allergies Allergy Verified 06/11/21 21:48 Vital Signs Vital Signs - 24 hr 06/11/21 16:09 06/11/21 20:09 06/11/21 21:04 Temperature 37.0 C Pulse Rate 91 90 101 H Respiratory Rate 18 18 16 Blood Pressure 113/69 143/83 H Pulse Oximetry 100 99 98 06/11/21 21:16 Temperature 36.4 C Pulse Rate 101 H Respiratory Rate 16 Blood Pressure 166/91 H Pulse Oximetry 98 Exam Const: General: cooperative, comfortable, no acute distress, alert, awake and Physically active Nutritional Appearance: average body habitus Orientation/consciousness: patient oriented x3 Limitations: no limitations HENMT: Head: normal to inspection,
[2021-06-12] VITALS (26 sets, daily range): BP systolic 100–167; BP diastolic 62–93; PULSE 77–114; RESP 16–24; TEMP 36.4–37.2; O2SAT 96–100; BMI 18.9
[2021-06-12 00:24] LABS: Carcinoembryonic Antigen 1.2 ng/mL (0.0-3.0)
[2021-06-12] MEDS: hydrALAZINE HCL 20 MG/ML VIAL 10 MG IV PUSH (04:28)
[2021-06-12] MEDS: ONDANSETRON INJ 4 MG/2 ML VIAL IV PUSH ×2 (04:28→19:01)
[2021-06-12 05:19] LABS: Basophils Percent Auto 0.3 % (0.2-1.2); Eosinophils Absolute Auto 0.1 K/mm3 (0-0.3); Eosinophils Percent Auto 0.8 % (0-4.4); Hematocrit 36.8 % (42.0-52.0); Hemoglobin 11.6 g/dL (14.0-18.0); Immature Granulocyte Absolute 0.05 K/mm3 (0.00-0.031); Immature Granulocyte Percent A 0.5 % (0-0.5); Lymphocytes Absolute Auto 0.63 K/mm3 (0.9-3.2); Lymphocytes Percent Auto 6.9 % (18.3-44.2); Mean Corpuscular HGB Conc 31.5 g/dl (32-36); Mean Corpuscular Hemoglobin 26.2 pg (26-34); Mean Corpuscular Volume 83.1 fl (80-100); Monocytes Absolute Auto 0.6 K/mm3 (0.1-0.6); Monocytes Percent Auto 6.6 % (2.6-8.5); Neutrophils Absolute Auto 7.8 K/mm3 (1.3-6.7); Neutrophils Percent Auto 84.9 % (45.5-73.1); Platelet Count Result 146 k/mm3 (150-375); Red Blood Count 4.43 M/mm3 (4.6-6.20); Red Cell Distribution Width 16.3 % (11.5-14.5); White Blood Count 9.2 K/mm3 (4.5-10.0)
[2021-06-12 05:33] LABS: Alanine Aminotransferase 12 U/L (4-50); Albumin Level 3.3 g/dL (3.5-5.1); Alkaline Phosphatase 45 U/L (38-126); Anion Gap 10 mmol/L (8-16); Aspartate Amino Transferase 19 U/L (17-59); Bilirubin,Total 1.2 mg/dL (0.2-1.3); Blood Urea Nitrogen 21 mg/dL (9-20); Calcium 7.8 mg/dL (8.4-10.2); Carbon Dioxide 20 mmol/L (22-30); Chloride 104 mmol/L (98-107); Estimated CRCL calculation 40 ml/min; Estimated Glomerular Filt Rate > 60; Glucose 106 mg/dL (65-110); Magnesium 1.8 mg/dL (1.6-2.3); Potassium 3.5 mmol/L (3.4-5.0); Sodium 134 mmol/L (137-145)
--- NOTE | 2021-06-12 11:38 | PM.PNGS ---
Progress Note: A&P Assessment and Plan (1) Intussusception: Code(s): K56.1 - Intussusception Status: Acute Assessment and Plan: exam cont to be benign, will get hypaque/air enema for further eval, CEA pending, d/w pt need for urgent surgery if unable to reduce intussusception c enema Subjective Subjective Date/Time Seen: 06/12/21 11:38 feels good, no c/o pain, no N/V, reports some minimal flatus Review of Systems Review of Systems: All systems reviewed & are unremarkable except as noted in HPI and below Exam Const: General: cooperative, comfortable and no acute distress Nutritional Appearance: average body habitus Orientation/consciousness: patient oriented x3 Limitations: no limitations Resp: Effort & Inspection: normal respiratory effort Auscultation: clear to auscultation bilaterally Cardio: Rate: regular rate Rhythm: regular rhythm GI: Inspection: normal to inspection and non-distended GI Palp: Yes Soft to palpation, No Tenderness to palpation present (GI), No Guarding due to palpation present (GI) and No Rigid due to palpation Other: soft, sl dist, NT, +bs Objective Data Vital Signs Vital Signs: Vital Signs - 24 hr 06/11/21 16:09 06/11/21 20:09 06/11/21 21:04 Temperature 37.0 C Pulse Rate 91 90 101 H Respiratory Rate 18 18 16 Blood Pressure 113/69 143/83 H Pulse Oximetry 100 99 98 06/11/21 21:07 06/11/21 21:16 06/11/21 22:00 Temperature 36.4 C Pulse Rate 102 H 101 H 87 Respiratory Rate 16 Blood Pressure 166/91 H Pulse Oximetry 98 06/11/21 23:40 06/11/21 23:43 06/12/21 00:00 Temperature 36.3 C L Pulse Rate 87 87 86 Respiratory Rate 16 16 Blood Pressure 155/93 H Pulse Oximetry 99 99 06/12/21 02:00 06/12/21 04:00 06/12/21 05:29 Temperature 36.4 C Pulse Rate 91 96 100 Respiratory Rate 20 Blood Pressure 167/82 H Pulse Oximetry 100 06/12/21 08:00 Temperature 36.5 C Pulse Rate 103 H Respiratory Rate 20 Blood Pressure 123/93 H Pulse Oximetry 98 Intake/Output Intake/Output: Intake & Output 06/09/21 06/10/21 06/11/21 06/12/21 23:59 23:59 23:59 23:59 Intake Total 1000 Output Total 150 125 Balance 850 -125 Meds/Results Medications: Active Medications Generic Name Dose Route Start Last Admin Trade Name Freq PRN Reason Stop Dose Admin Hydralazine HCl 10 mg 06/11/21 21:42 06/12/21 04:28 Hydralazine Hcl 20 Mg/Ml Vial IV PUSH 10 mg Q8H PRN Administration Blood Pressure - High Sodium Chloride 1,000 mls @ 100 mls/hr 06/11/21 19:25 06/11/21 22:18 Normal Saline Iv IV CONT 100 mls/hr .Q10H ALAINA Administration Ondansetron HCl 4 mg 06/11/21 22:39 06/12/21 04:28 Ondansetron Inj 4 Mg/2 Ml Vial IV PUSH 4 mg Q4H PRN Administration Nausea And Vomiting Radiology Results: ITS Impressions Chest X-Ray 06/11/21 17:01 IMPRESSION: Bilateral hyperinflation; no active cardiopulmonary disease Labs Labs: Laboratory Results - last 24 hr 06/11/21 06/11/21 06/11/21 17:12 17:12 17:12 WBC 10.0 RBC 4.61 Hgb 11.9 L Hct 38.5 L MCV 83.5 MCH 25.8 L MCHC 30.9 L RDW 16.6 H Plt Count 171 MPV 11.2 H Immature Gran % (Auto) 0.6 H Neut % (Auto) 82.5 H Lymph % (Auto) 6.9 L [place] % (Auto) 8.1 Eos % (Auto) 1.4 Baso % (Auto) 0.5 Lymph # (Auto) 0.69 L [place] # (Auto) 0.8 H Eos # (Auto) 0.1 Baso # (Auto) 0.1 Abs Immat Gran (auto) 0.06 H Absolute Neuts (auto) 8.3 H Absolute Nucleated RBC 0.0 Nucleated RBC % 0.0 PT 14.2 INR 1.1 APTT 27.6 Sodium 134 L Potassium 3.7 Chloride 100 Carbon Dioxide 23 Anion Gap 11 BUN 31 H Creatinine 1.60 H Estim Creat Clear Calc 31 Estimated GFR 42 L Glucose 100 Lactic Acid Calcium 8.7 Magnesium Total Bilirubin 1.5 H AST 23 ALT 17 Alkaline Phosphatase 56 Troponin I Total Protein 7.0 Albumin 4.0 Lipase 1
[2021-06-12] MEDS: SODIUM CHLORIDE 0.9% IV 1,000 ML 100 ML IV CONT (14:45)
--- NOTE | 2021-06-12 15:39 | WPDANESEPP ---
Anes - Eval Pre Procedure Procedure: Operation Date: 06/12/21 18:00 Proposed Procedures p Exploratory Laparotomy, Possible Bowel Resection,Possible Ostomy - Fela Bustos MD Date/Time: 06/12/21 15:39 Pre Op Diagnosis: Intussusception, Chest Pain Patient Data Age: 80 Gender: M Height: 1.8 m Weight: 61.7 kg Last Vital Signs Temp 36.4 C L 06/12/21 12:00 Pulse 106 H 06/12/21 12:00 Resp 20 06/12/21 12:00 BP 149/78 H 06/12/21 12:00 Pulse Ox 98 06/12/21 12:00 Allergies Allergy/AdvReac Type Severity Reaction Status Date / Time No Known Allergies Allergy Verified 06/11/21 21:48 Home Medications Medication Instructions Recorded Confirmed Type tamsulosin 0.4 mg PO DAILY 01/23/20 06/12/21 History amlodipine 5 mg PO DAILY 06/12/21 06/12/21 History Laboratory Tests 06/11/21 06/11/21 06/11/21 17:12 17:12 17:12 WBC 10.0 K/mm3 K/mm3 (4.5-10.0) RBC 4.61 M/mm3 M/mm3 (4.6-6.20) Hgb 11.9 g/dL L g/dL (14.0-18.0) Hct 38.5 % L % (42.0-52.0) MCV 83.5 fl fl (80-100) MCH 25.8 pg L pg (26-34) MCHC 30.9 g/dl L g/dl (32-36) RDW 16.6 % H % (11.5-14.5) Plt Count 171 k/mm3 k/mm3 (150-375) MPV 11.2 fl H fl (7.4-10.4) Immature Gran % (Auto) 0.6 % H % (0-0.5) Neut % (Auto) 82.5 % H % (45.5-73.1) Lymph % (Auto) 6.9 % L % (18.3-44.2) [place] % (Auto) 8.1 % % (2.6-8.5) Eos % (Auto) 1.4 % % (0-4.4) Baso % (Auto) 0.5 % % (0.2-1.2) Lymph # (Auto) 0.69 K/mm3 L K/mm3 (0.9-3.2) [place] # (Auto) 0.8 K/mm3 H K/mm3 (0.1-0.6) Eos # (Auto) 0.1 K/mm3 K/mm3 (0-0.3) Baso # (Auto) 0.1 K/mm3 K/mm3 (0.0-0.1) Abs Immat Gran (auto) 0.06 K/mm3 H K/mm3 (0.00-0.031) Absolute Neuts (auto) 8.3 K/mm3 H K/mm3 (1.3-6.7) Absolute Nucleated RBC 0.0 K/mm3 K/mm3 (0.0-0.012) Nucleated RBC % 0.0 % % (0.0-0.2) PT 14.2 Seconds Seconds (11.1-14.7) INR 1.1 APTT 27.6 SECONDS SECONDS (22.3-36.8) Sodium 134 mmol/L L mmol/L (137-145) Potassium 3.7 mmol/L mmol/L (3.4-5.0) Chloride 100 mmol/L mmol/L (98-107) Carbon Dioxide 23 mmol/L mmol/L (22-30) Anion Gap 11 mmol/L mmol/L (8-16) BUN 31 mg/dL H mg/dL (9-20) Creatinine 1.60 mg/dL H mg/dL (0.7-1.3) Estim Creat Clear Calc 31 ml/min ml/min Estimated GFR 42 L (59 - ) Glucose 100 mg/dL mg/dL (65-110) Lactic Acid Calcium 8.7 mg/dL mg/dL (8.4-10.2) Magnesium Total Bilirubin 1.5 mg/dL H mg/dL (0.2-1.3) AST 23 U/L U/L (17-59) ALT 17 U/L U/L (4-50) Alkaline Phosphatase 56 U/L U/L (38-126) Troponin I Total Protein 7.0 g/dL g/dL (6.3-8.2) Albumin 4.0 g/dL g/dL (3.5-5.1) Lipase 13 U/L L U/L (23-300) Carcinoembryonic Ag TSH (Reflex) Urine Color Urine Appearance Urine pH Ur Specific Avery Urine Protein Urine Glucose (UA) Urine Ketones Ur Blood (Man) Urine Nitrate Urine Bilirubin Urine Urobilinogen Leukocyte Esterase Rfl Urine RBC Urine WBC Ur Squamous Epith Cells Hyaline Casts Urine Mucus 06/11/21 06/11/21 06/11/21 17:12 17:23 18:47 WBC RBC Hgb Hct MCV MCH MCHC RDW Plt Count MPV Immature Gran % (Auto) Neut % (Auto) Lymph % (Auto) [place] % (Auto) Eos % (
--- NOTE | 2021-06-12 16:03 | WPDGICN ---
Assessment and Plan Assessment and plan (1) Intussusception: Code(s): K56.1 - Intussusception Status: Acute Assessment and Plan: large colon intussusception unable to assess if lead point mass and he has not had colonoscopy for more than 15 years unable to be reduced with enema, he will be taken for surgery (2) Lower abdominal pain: Code(s): R10.30 - Lower abdominal pain, unspecified Status: Acute Assessment and Plan: surgery on board (3) Constipated: Code(s): K59.00 - Constipation, unspecified Status: Acute (4) History of hypertension: Code(s): Z86.79 - Personal history of other diseases of the circulatory system Status: Inactive GI Consult Note Consult date/time: 06/12/21 16:03 HPI: Nader Zapata is a 80 year old male with history of HTN who came here with intermittent chest pain but mostly lower abdominal pain for almost a week, his last bowel movement 2 days prior to admission, pain sometimes was severe and also associated with nausea. Abdominal pelvis CT scan reviewed and consistent with large colon intussusception and already evaluated by surgery. Hb 11.9. He says that last colonoscopy probably 15 years ago. I discussed case with surgery and decided to proceed with XR enema water soluble. Review of Systems Constitutional: Constitutional: Denies chills Eyes: Eyes: Reports no additional eye complaints ENT: Reports Normal hearing present Cardiovascular: Cardiovascular: Reports chest pain Respiratory: Respiratory: Denies cough Gastrointestinal: Gastrointestinal: Reports abdominal pain and Reports nausea Genitourinary: Genitourinary: Denies dysuria Musculoskeletal: Musculoskeletal: Denies neck pain Integumentary/Breasts: Skin/Breast: Denies dry skin Neurologic: Denies headache(s) Psychiatric: Psychiatric: Reports no additional psychiatric complaints [facility] Past Medical History Medical History (Updated 06/12/21 @ 16:09 by David Ch MD) Constipated COPD (chronic obstructive pulmonary disease) CVA (cerebral vascular accident) Enlarged prostate History of hypertension HTN (hypertension), malignant Lower abdominal pain Surgical History Surgical History History of tonsillectomy Family History Family History Father Lung cancer Mother Lymphoma Social History Social History Social History: the patient is and has no children. 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 his friend Darell Marks is a durable power trademark attorney for healthcare and the patient desires to be a DNR. The patient is a lifelong nonsmoker. He does not use any illicit drugs or alcohol. Smoking status: Never smoker Second hand tobacco smoke exposure: No Alcohol intake: never Substance use: never Substance use type: does not use Gender identity (if verbalized by the patient): Male Sexual Orientation (if Verbalized by the Patient): Straight or Heterosexual Spiritual care concerns: No Meds Home Medications and Allergies Home Medications Medication Instructions Recorded Confirmed Type tamsulosin 0.4 mg PO DAILY 01/23/20 06/12/21 History amlodipine 5 mg PO DAILY 06/12/21 06/12/21 History Allergies Allergy/AdvReac Type Severity Reaction Status Date / Time No Known Allergies Allergy Verified 06/11/21 21:48 Vital Signs Vital Signs - 24 hr 06/11/21 16:09 06/11/21 20:09 06/11/21 21:04 Temperature 98.6 F Pulse Rate 91 90 101 H Respiratory Rate 18 18 16 Blood Pressure 113/69 143/83 H Pulse Oximetry 100 99 98 06/11/21 21:07 06/11/21 21:16 06/11/21 22:00 Temperature 97.6 F Pulse Rate 102 H 101 H 87 Respiratory Rate 16 Blood Pressure 166/91 H Pulse Oximetry 98 06/11/21 23:40 06/11/21 23:43 06/12/21 00:00 Temperature 97.3 F L Pulse
[2021-06-12] MEDS: LACTATED RINGERS 1,000 ML 30 ML IV CONT ×2 (17:20→20:09)
--- NOTE | 2021-06-12 17:53 | WPDANESEFPP ---
Anes - Eval Final PreProcedure Day of Procedure 06/12/21 17:53 Patient weight: thin Heart: regular rate and rhythm Lungs: clear to auscultation Airway: Mallampati scale class II Neurological: alert and oriented (x 2) Last oral intake: >/= 8 hours ASA classification: III Emergent: yes Anesthetic plan: proceed Anesthesia type and monitoring: general ETT and standard monitoring Informed Consent: The patient's anesthetic plan and its attendant risks and benefits were discussed with the patient/family/POA. Questions were solicited and answers provided to the satisfaction of the patient/family/POA.
--- NOTE | 2021-06-12 17:57 | PM.IMPN ---
Progress Note: A&P Assessment and Plan (1) Intussusception: Code(s): K56.1 - Intussusception Status: Acute Assessment and Plan: Patient's abdominal pelvis CT reveals intussusception. There unsuccessful attempt at reduction with a water-soluble enema. Plan for surgery, Patient has been oaintained NPO overnight. (2) Enlarged prostate: Code(s): N40.0 - Benign prostatic hyperplasia without lower urinary tract symptoms Status: Chronic Assessment and Plan: Patient is NPO at this time but typically takes Flomax. Monitor urinary output. Bladder scan every shift. (3) HTN (hypertension), malignant: Code(s): I10 - Essential (primary) hypertension Status: Chronic Assessment and Plan: Patient is NPO so his amlodipine is on hold. Will continue with P.r.n. hydralazine. Due to acute illness target BP goal 140/90 while inpatient. Time Spent With Patient Time with patient: 15 - 25 minutes Subjective Date/time seen: 06/12/21 17:57 Nader Zapata is a 80 year old gentleman with a past medical history of HTN who came here with intermittent chest pain but mostly lower abdominal pain for almost a week, his last bowel movement 2 days prior to admission, pain sometimes was severe and also associated with nausea. Abdominal pelvis CT scan reviewed and consistent with large colon intussusception and already evaluated by surgery and GI. There wasunsuccessful reduction attempt with water enema. Plan for surgery S: Patient reports hiccups. Persistent lower abdominal pain. Review of Systems Review of Systems: CONSTITUTIONAL: Negative for any fevers, chills, night sweats, tiredness, fatigue, malaise, anorexia or weight loss. CARDIOVASCULAR: Negative for chest pain, palpitations, dizziness, orthopnea or lower extremity edema. RESPIRATORY: Negative for shortness of breath, cough, wheezing, sputum. GENITOURINARY: Negative for frequency, nocturia, dysuria, hematuria. GASTROINTESTINAL: positive for abdominal pain; no nausea, vomiting or diarrhea. HEMATOLOGIC: Negative for any abnormal bleeding or bruising. MUSCULOSKELETAL: Negative for joint swelling, stiffness or pain. SKIN: Negative for rashes, eruptions, lesions or dryness. NEUROLOGIC: Negative for any focal neurologic complaints. PSYCHIATRIC: Negative for anxiety, panic, depression. Exam Narrative: GENERAL: The patient is alert and oriented, in mild distress due to hiccups. He is conversant in full sentences. HEENT: Pupils are equally round and briskly reactive to light. Extraocular muscles are intact. Oral mucous membranes are moist without lesions. NECK: The patient has no noted JVD. No adenopathy is appreciated. CHEST/LUNGS: Lungs are clear bilaterally without rhonchi, rales, or wheezes. HEART: The patient has a regular rate and rhythm. No murmurs, rubs, or gallops are appreciated. Distal pulses are 2+. No carotid bruits appreciated. ABDOMEN: The patient?s abdomen is soft, diffusely tender, and nondistended. Bowel sounds are faint. EXTREMITIES: The patient has no peripheral edema. SKIN: The patient?s skin is warm and dry, without rashes or lesions. PSYCHIATRIC: The patient has normal mental status and has an appropriate affect. Objective Data Vital Signs Vital Signs: Vital Signs - 24 hr 06/11/21 20:09 06/11/21 21:04 06/11/21 21:07 Temperature Pulse Rate 90 101 H 102 H Respiratory Rate 18 16 Blood Pressure 143/83 H Pulse Oximetry 99 98 06/11/21 21:16 06/11/21 22:00 06/11/21 23:40 Temperature 97.6 F 97.3 F L Pulse Rate 101 H 87 87 Respiratory Rate 16 16 Blood Pressure 166/91 H 155/93 H Pulse Oximetry 98 99 06/11/21 23:43 06/12/21 00:00 06/12/21 02:00 Temperature Pulse Rate 87 86 91 Respiratory Rate 16 Blood Pressure Pulse Oximetry 99 06/12/21 04:00 06/12/21 05:29 06/12/21 08:00 Temperature 97.6 F 97.7 F Pulse Rate 96 100 103 H Respiratory Rate 20 20 Blood Pressure 167/82 H 123/93 H Pulse
--- NOTE | 2021-06-12 18:30 | WPDHPUPDATE1 ---
History and Physical Update Update Date/Time: 06/12/21 18:30 History and Physical has been reviewed, including an updated exam of the patient. There are NO changes in the patient's condition. Risks, benefits, and alternatives have been discussed and questions answered. Patient agrees to proceed with procedure.
[2021-06-12] MEDS: ceFAZolin 2 GM/D5W 50 ML 2 GM/50 ML BAG IVPB (18:52)
--- NOTE | 2021-06-12 20:13 | W.PM.PROC2 ---
Procedure Note - Detailed Date of Procedure 06/12/21 Pre-op Diagnosis Intussusception, bowel obstruction Post-op Diagnosis same Procedure Performed Exploratory laparotomy, reduction of long segment intussusception, extended right hemicolectomy with mobilization of splenic flexure Surgeon Fela Bustos MD Anesthesia general Indications 80-year-old male presenting with long segment intussusception, bowel obstruction Findings long segment intussusception with terminal ileum right colon ascending colon and transverse colon all within lumen of the descending colon Description of Procedure The patient was taken to the operating room and placed in the supine position. After adequate induction of general anesthesia, the patient was prepped and draped in the normal sterile fashion. A time-out was then done to verify the patient's identity, as well as the procedure being performed. I began by making a midline incision and carrying this down into the peritoneal cavity. Upon entering the peritoneum, there was noted to be a moderate amount of free fluid. It was also noted that the patient very distended small intestine. I began by running the entire small intestine and noted distally in the proximal ileal area that the patient had fecalization of the small bowel. The distal terminal ileum was noted to be within the intussusception. The entire right colon, ascending colon, and transverse colon were noted to be invaginated into the descending colon. I began by mobilizing the splenic flexure. Once the descending colon was mobilized, I was able to slowly reduce the intussusception. This was very tight and tedious. Once the area was completely reduced, was noted to be a perforation in the distal cecum. At this point, I decided to do a extended right hemicolectomy. I made the proximal transection approximately 10 cm proximal to the ileocecal. The distal transection was done at the distal transverse colon. I then took down the mesenteric attachments using the LigaSure device. I did take a wide swath of mesentery given the suspicion of a tumor in the cecal area. The reason for the extended resection was because of some serosal tear noted during the reduction of the intussusception. The specimen was then sent to pathology for further review. I then performed a [id number] functional end-to-end anastomosis between the ileum and distal transverse colon. This was done with a 75 KJ stapler and a subsequent Tx 60 stapler. I closed the mesenteric defect with a running 2 0 silk suture. I then copiously irrigated the abdomen. No other pathology was noted. I then closed the fascia with a looped 1. PDS suture. The skin was closed with skin lana. Sterile dressing was then placed. The patient tolerated the procedure well and was extubated in the operating room postop. He will be transferred to the recovery room in stable condition. Estimated Blood Loss 50 Drains No Packing No Pathology yes Complications No immediate complications Condition stable Disposition PACU
[2021-06-12] MEDS: fentaNYL CITRATE INJ (*CRX) 100 MCG/2 ML VIAL 25 MCG IV PUSH ×8 (20:39→21:32)
--- NOTE | 2021-06-12 21:45 | SUR.PHASEI ---
2143- Second call to RN in IMU to give report.
--- NOTE | 2021-06-12 22:37 | PC.NURSE ---
This patient, Nader Zapata, was received from PACU on 06/12/21 at 2220. Report received from Fang RN. Patient/family oriented to unit policies and routines
[2021-06-13] VITALS (17 sets, daily range): BP systolic 102–134; BP diastolic 67–86; PULSE 84–118; RESP 16–24; TEMP 36.1–36.4; O2SAT 94–99
[2021-06-13] MEDS: MORPHINE SULFATE (*CRX) 2 MG/ML INJ IV PUSH ×2 (04:33→09:17)
[2021-06-13 05:17] LABS: Hematocrit 40.8 % (42.0-52.0); Hemoglobin 12.4 g/dL (14.0-18.0); Mean Corpuscular HGB Conc 30.4 g/dl (32-36); Mean Corpuscular Hemoglobin 25.8 pg (26-34); Platelet Count Result 168 k/mm3 (150-375); Red Cell Distribution Width 16.6 % (11.5-14.5); White Blood Count 8.5 K/mm3 (4.5-10.0)
[2021-06-13 05:24] LABS: Anion Gap 7 mmol/L (8-16); Blood Urea Nitrogen 25 mg/dL (9-20); Calcium 7.3 mg/dL (8.4-10.2); Carbon Dioxide 20 mmol/L (22-30); Chloride 108 mmol/L (98-107); Estimated CRCL calculation 37 ml/min; Estimated Glomerular Filt Rate 58; Glucose 93 mg/dL (65-110); Potassium 3.8 mmol/L (3.4-5.0); Sodium 135 mmol/L (137-145)
[2021-06-13] MEDS: SODIUM CHLORIDE 0.9% IV 1,000 ML 100 ML IV CONT ×2 (06:37→18:46)
[2021-06-13 07:38] LABS: Band Neutrophils Percent 18 % (0-6); Lymphocytes Absolute Manual 0.51 K/mm3 (1.1-4.5); Monocytes Absolute Manual 0.42 K/mm3 (0.1-0.90); Monocytes Percent Manual 5 % (3-9); Neutrophils Absolute Manual 7.56 K/mm3 (1.3-6.7); Neutrophils Percent Manual 71 % (46-73); Platelet Estimate Adequate (Adequate); Total Cells Counted 100
[2021-06-13] MEDS: PANTOPRAZOLE 40 MG TABLET PO (09:18)
[2021-06-13] MEDS: ENOXAPARIN 40 MG/0.4 ML SYRINGE SUB-Q (09:18)
--- NOTE | 2021-06-13 11:10 | PM.IMPN ---
Progress Note: A&P Assessment and Plan (1) Intussusception: Code(s): K56.1 - Intussusception Status: Acute Assessment and Plan: Patient presented with a couple days of abdominal pain, and loss of appetite, and no bowel movement. CT on admission showed intussusception. Initial treatment attempt was made with reduction via water enema, able to push the intussusception back to the splenic flexure, but not beyond that. Intussusception was then surgically reduced in the OR on the evening of 827, and pathology specimen was sent to the lab. NG tube still in place. Set to suction. Will cautiously resume diet as tolerated. Pain control with ibuprofen ideally, as opioids may prevent bowel movement. However morphine present for breakthrough. Monitor for flatus and bowel movement. Continue postop care, including incentive spirometry, DVT prophylaxis, and monitoring for infection. Surgery on board, appreciate additional recommendations, including antibiotics. (2) Enlarged prostate: Code(s): N40.0 - Benign prostatic hyperplasia without lower urinary tract symptoms Status: Chronic Assessment and Plan: Patient is NPO at this time but typically takes Flomax. Monitor urinary output. Bladder scan every shift. (3) HTN (hypertension), malignant: Code(s): I10 - Essential (primary) hypertension Status: Chronic Assessment and Plan: Patient is NPO so his amlodipine is on hold. Will continue with P.r.n. hydralazine. Due to acute illness target BP goal 140/90 while inpatient. (4) Right bundle branch block (RBBB) determined by electrocardiography: Code(s): I45.10 - Unspecified right bundle-branch block Status: Acute Assessment and Plan: Discussed with patient importance of outpatient Cardiology follow-up (5) Left anterior fascicular block: Code(s): I44.4 - Left anterior fascicular block Status: Acute Assessment and Plan: Discussed with patient importance of outpatient Cardiology follow-up Additional Plan Patient gave contact of friend, Darell Calle, phone number [phone]. Will attempt to contact, apparently he is medical power of divorce attorney, and can answer more detailed questions about patient's medical history.. Subjective Date/time seen: 06/13/21 11:10 patient resting comfortably in bed, in good spirits. Does note occasional abdominal pain, although greatly improved from before. Has not yet passed gas or had a bowel movement. Review of Systems Review of Systems: All systems reviewed & are unremarkable except as noted in HPI and below Exam Const: General: no acute distress Neck: Neck: no JVD Resp: Effort & Inspection: normal respiratory effort Auscultation: clear to auscultation bilaterally Cardio: Rate: regular rate Rhythm: regular rhythm GI: Other: Nasogastric tube in place, bandage in place around site of surgical incision, tender to deep palpation No rigidity, or guarding Objective Data Vital Signs Vital Signs: Vital Signs - 24 hr 06/12/21 12:00 06/12/21 14:00 06/12/21 16:00 Temperature 97.5 F L 98.2 F Pulse Rate 106 H 100 77 Respiratory Rate 20 20 Blood Pressure 149/78 H 141/93 H Pulse Oximetry 98 99 06/12/21 17:35 06/12/21 20:00 06/12/21 20:09 Temperature 98.1 F 98.9 F Pulse Rate 96 114 H 98 Respiratory Rate 18 16 Blood Pressure 156/83 H 138/84 Pulse Oximetry 96 100 06/12/21 20:20 06/12/21 20:30 06/12/21 20:40 Temperature Pulse Rate 99 95 98 Respiratory Rate 16 20 20 Blood Pressure 119/74 104/67 105/70 Pulse Oximetry 100 100 100 06/12/21 20:45 06/12/21 20:55 06/12/21 21:05 Temperature 97.6 F Pulse Rate 95 97 100 Respiratory Rate 20 20 18 Blood Pressure 100/62 101/68 106/69 Pulse Oximetry 98 98 99 06/12/21 21:15 06/12/21 21:30 06/12/21 21:40 Temperature Pulse Rate 98 104 H 107 H Respiratory Rate 18 18 18 Blood Pressure 112/74 125/73 133/78 Pulse Oximetry 98 96 96 06/12/21
[2021-06-13] MEDS: IBUPROFEN IV 400 MG in SODIUM CHLORIDE 0.9% IV 100 ML 200 MG IVPB (12:24)
--- NOTE | 2021-06-13 13:00 | PM.PNGS ---
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 Pain controlled. A little confused. Exam GI: Inspection: non-distended and incision (slight shadowing on dressing) GI Palp: Yes Soft to palpation and Yes Tenderness to palpation present (GI) (incisional) Auscultation: Hypoactive bowel sounds present Objective Data Vital Signs Vital Signs: Vital Signs - 24 hr 06/12/21 14:00 06/12/21 16:00 06/12/21 17:35 Temperature 36.8 C 36.7 C Pulse Rate 100 77 96 Respiratory Rate 20 18 Blood Pressure 141/93 H 156/83 H Pulse Oximetry 99 96 06/12/21 20:00 06/12/21 20:09 06/12/21 20:20 Temperature 37.2 C Pulse Rate 114 H 98 99 Respiratory Rate 16 16 Blood Pressure 138/84 119/74 Pulse Oximetry 100 100 06/12/21 20:30 06/12/21 20:40 06/12/21 20:45 Temperature 36.4 C Pulse Rate 95 98 95 Respiratory Rate 20 20 20 Blood Pressure 104/67 105/70 100/62 Pulse Oximetry 100 100 98 06/12/21 20:55 06/12/21 21:05 06/12/21 21:15 Temperature Pulse Rate 97 100 98 Respiratory Rate 20 18 18 Blood Pressure 101/68 106/69 112/74 Pulse Oximetry 98 99 98 06/12/21 21:30 06/12/21 21:40 06/12/21 21:50 Temperature Pulse Rate 104 H 107 H 106 H Respiratory Rate 18 18 18 Blood Pressure 125/73 133/78 121/70 Pulse Oximetry 96 96 100 06/12/21 22:00 06/12/21 22:20 06/12/21 22:35 Temperature 36.9 C 36.9 C Pulse Rate 107 H 108 H 107 H Respiratory Rate 20 20 Blood Pressure 105/67 105/64 Pulse Oximetry 98 98 06/12/21 23:05 06/13/21 00:00 06/13/21 00:05 Temperature 36.4 C 36.4 C Pulse Rate 110 H 103 H 106 H Respiratory Rate 24 H 24 H 16 Blood Pressure 106/68 109/69 Pulse Oximetry 99 99 96 06/13/21 02:00 06/13/21 04:00 06/13/21 05:51 Temperature 36.4 C L Pulse Rate 106 H 104 H 102 H Respiratory Rate 20 Blood Pressure 102/67 Pulse Oximetry 95 06/13/21 07:42 06/13/21 08:00 06/13/21 08:48 Temperature 36.3 C L Pulse Rate 98 99 Respiratory Rate 18 Blood Pressure 130/86 Pulse Oximetry 94 96 06/13/21 10:00 Temperature Pulse Rate 99 Respiratory Rate Blood Pressure Pulse Oximetry Intake/Output Intake/Output: Intake & Output 06/10/21 06/11/21 06/12/21 06/13/21 23:59 23:59 23:59 23:59 Intake Total 1000 1400 1250 Output Total 150 350 575 Balance 850 1050 675 Meds/Results Medications: Active Medications Generic Name Dose Route Start Last Admin Trade Name Freq PRN Reason Stop Dose Admin Alvimopan 12 mg 06/13/21 21:00 Alvimopan 12 Mg Capsule PO 06/20/21 21:01 Q12HR ALAINA Enoxaparin Sodium 40 mg 06/13/21 09:00 06/13/21 09:18 Enoxaparin 40 Mg/0.4 Ml Syringe SUB-Q 40 mg DAILY ALAINA Administration Hydralazine HCl 10 mg 06/11/21 21:42 06/12/21 04:28 Hydralazine Hcl 20 Mg/Ml Vial IV PUSH 10 mg Q8H PRN Administration Blood Pressure - High Sodium Chloride 1,000 mls @ 100 mls/hr 06/11/21 19:25 06/13/21 06:37 Normal Saline Iv IV CONT 100 mls/hr .Q10H ALAINA Administration Ibuprofen 400 mg/ Sodium 104 mls @ 200 mls/hr 06/12/21 21:57 06/13/21 12:24 Chloride IVPB 200 mls/hr Q6H PRN Administration Pain Rated 1-3 Piperacillin Sod/Tazobactam Sod 2.25 gm in 50 mls @ 100 mls/hr 06/12/21 23:00 0
[2021-06-13] MEDS: ALVIMOPAN 12 MG CAPSULE PO (20:58)
[2021-06-14] VITALS (13 sets, daily range): BP systolic 115–152; BP diastolic 69–85; PULSE 82–110; RESP 16–18; TEMP 36.3–36.6; O2SAT 92–98
[2021-06-14] MEDS: MORPHINE SULFATE (*CRX) 2 MG/ML INJ IV PUSH (04:42)
[2021-06-14] MEDS: SODIUM CHLORIDE 0.9% IV 1,000 ML 100 ML IV CONT ×2 (04:42→20:45)
[2021-06-14 05:18] LABS: Alanine Aminotransferase 11 U/L (4-50); Albumin Level 2.3 g/dL (3.5-5.1); Alkaline Phosphatase 30 U/L (38-126); Anion Gap 8 mmol/L (8-16); Aspartate Amino Transferase 30 U/L (17-59); Bilirubin,Total 1.6 mg/dL (0.2-1.3); Blood Urea Nitrogen 32 mg/dL (9-20); Calcium 7.3 mg/dL (8.4-10.2); Carbon Dioxide 18 mmol/L (22-30); Chloride 110 mmol/L (98-107); Estimated CRCL calculation 30 ml/min; Estimated Glomerular Filt Rate 45; Glucose 83 mg/dL (65-110); Magnesium 1.9 mg/dL (1.6-2.3); Phosphorus 3.8 mg/dL (2.5-4.5); Potassium 3.5 mmol/L (3.4-5.0); Sodium 136 mmol/L (137-145)
[2021-06-14 05:20] LABS: Basophils Percent Auto 0.4 % (0.2-1.2); Hemoglobin 10.7 g/dL (14.0-18.0); Immature Granulocyte Absolute 0.03 K/mm3 (0.00-0.031); Immature Granulocyte Percent A 0.4 % (0-0.5); Lymphocytes Absolute Auto 0.27 K/mm3 (0.9-3.2); Lymphocytes Percent Auto 3.4 % (18.3-44.2); Mean Corpuscular HGB Conc 30.6 g/dl (32-36); Mean Corpuscular Hemoglobin 25.8 pg (26-34); Mean Corpuscular Volume 84.5 fl (80-100); Mean Platelet Volume 10.8 fl (7.4-10.4); Monocytes Absolute Auto 0.6 K/mm3 (0.1-0.6); Monocytes Percent Auto 7.3 % (2.6-8.5); Neutrophils Absolute Auto 7.1 K/mm3 (1.3-6.7); Neutrophils Percent Auto 88.5 % (45.5-73.1); Platelet Count Result 152 k/mm3 (150-375); Red Blood Count 4.14 M/mm3 (4.6-6.20)
[2021-06-14 06:03] LABS: Burr Cells 3+ (NORMAL); Platelet Estimate Adequate (Adequate)
[2021-06-14] MEDS: PANTOPRAZOLE 40 MG TABLET PO (08:42)
[2021-06-14] MEDS: ALVIMOPAN 12 MG CAPSULE PO ×2 (08:42→20:25)
[2021-06-14] MEDS: ENOXAPARIN 40 MG/0.4 ML SYRINGE SUB-Q (08:42)
--- NOTE | 2021-06-14 11:22 | PM.IMPN ---
Progress Note: A&P Assessment and Plan (1) Intussusception: Code(s): K56.1 - Intussusception Status: Acute Assessment and Plan: Patient presented with a couple days of abdominal pain, and loss of appetite, and no bowel movement. CT on admission showed intussusception. Initial treatment attempt was made with reduction via water enema, able to push the intussusception back to the splenic flexure, but not beyond that. Intussusception was then surgically reduced in the OR on the evening of 827, and pathology specimen was sent to the lab. NG tube still in place. Set to suction. Will cautiously resume diet as tolerated. Pain control with ibuprofen ideally, as opioids may prevent bowel movement. However morphine present for breakthrough. Monitor for flatus and bowel movement - As of yet, has no bowel movement, however is passing plenty of gas. Continue postop care, including incentive spirometry, DVT prophylaxis, and monitoring for infection. Will promote increasing activity. Surgery on board, appreciate additional recommendations, including antibiotics. (2) ROBERTH (acute kidney injury): Code(s): N17.9 - Acute kidney failure, unspecified Status: Acute Assessment and Plan: creatinine was normal for the last 2 days, so unlikely the patient has significant CKD. There is some element of ROBERTH, likely related to patient not eating or drinking. Will bolus 1 L normal saline, and potentially have patient on maintenance fluid. follow creatinine in the morning. if not resolved, or at least improving, can consider urine electrolytes. (3) Enlarged prostate: Code(s): N40.0 - Benign prostatic hyperplasia without lower urinary tract symptoms Status: Chronic Assessment and Plan: Patient is NPO at this time but typically takes Flomax. Monitor urinary output. Bladder scan every shift. (4) HTN (hypertension), malignant: Code(s): I10 - Essential (primary) hypertension Status: Chronic Assessment and Plan: Patient is NPO so his amlodipine is on hold. Will continue with P.r.n. hydralazine. Due to acute illness target BP goal 140/90 while inpatient. (5) Right bundle branch block (RBBB) determined by electrocardiography: Code(s): I45.10 - Unspecified right bundle-branch block Status: Acute Assessment and Plan: Discussed with patient importance of outpatient Cardiology follow-up (6) Left anterior fascicular block: Code(s): I44.4 - Left anterior fascicular block Status: Acute Assessment and Plan: Discussed with patient importance of outpatient Cardiology follow-up Subjective Date/time seen: 06/14/21 11:22 Resting comfortably in bed. Has been passing gas, however not bowel movements. No nausea vomiting. Not eating. Sleeping comfortably throughout the night. Review of Systems Review of Systems: All systems reviewed & are unremarkable except as noted in HPI and below Exam Neck: Neck: no JVD Resp: Effort & Inspection: normal respiratory effort Auscultation: clear to auscultation bilaterally Cardio: Rate: regular rate Rhythm: regular rhythm GI: GI Palp: Yes Soft to palpation and No Tenderness to palpation present (GI) Other: Some tenderness to palpation around surgical site. No signs of infection, including hematoma or discoloration or pus leakage. Objective Data Vital Signs Vital Signs: Vital Signs - 24 hr 06/13/21 11:42 06/13/21 12:00 06/13/21 14:00 Temperature 97.1 F L Pulse Rate 101 H 104 H 118 H Respiratory Rate 22 H Blood Pressure 134/72 Pulse Oximetry 96 06/13/21 16:00 06/13/21 18:00 06/13/21 19:20 Temperature 97.6 F 97 F L Pulse Rate 95 87 84 Respiratory Rate 18 18 Blood Pressure 114/69 109/69 Pulse Oximetry 96 96 06/13/21 20:00 06/13/21 22:00 06/14/21 00:00 Temperature 98 F Pulse Rate 87 94 95 Respiratory Rate 18 16 Blood Pressure 115/73 Pulse Oximetry 96 92 0
--- NOTE | 2021-06-14 12:04 | PM.PNGS ---
Progress Note: A&P Assessment and Plan (1) Intussusception: Code(s): K56.1 - Intussusception Status: Acute Assessment and Plan: Doing well on postop day 2 Will remove NG tube and start clear liquids today D/C Ching today if okay with hospitalist Gradually increase activity (2) Chronic kidney disease (CKD): Qualifiers: Chronic kidney disease stage: stage 3 (moderate) Chronic kidney disease stage 3 subtype: stage 3b (GFR 30-44) Qualified Code(s): N18.32 - Chronic kidney disease, stage 3b Code(s): N18.9 - Chronic kidney disease, unspecified Status: Acute Subjective Subjective Date/Time Seen: 06/14/21 12:04 Interval history: Patient had bowel movement last night. Still having some abdominal pain, but overall controlled. No fevers/chills. Exam GI: Inspection: non-distended and incision (Clean/dry/intact) GI Palp: Yes Soft to palpation and Yes Tenderness to palpation present (GI) (Appropriate incisional) Auscultation: normal bowel sounds Objective Data Vital Signs Vital Signs: Vital Signs - 24 hr 06/13/21 14:00 06/13/21 16:00 06/13/21 18:00 Temperature 36.4 C Pulse Rate 118 H 95 87 Respiratory Rate 18 Blood Pressure 114/69 Pulse Oximetry 96 06/13/21 19:20 06/13/21 20:00 06/13/21 22:00 Temperature 36.1 C L Pulse Rate 84 87 94 Respiratory Rate 18 18 Blood Pressure 109/69 Pulse Oximetry 96 96 06/14/21 00:00 06/14/21 02:00 06/14/21 04:00 Temperature 36.6 C 36.6 C Pulse Rate 95 94 92 Respiratory Rate 16 16 Blood Pressure 115/73 117/69 Pulse Oximetry 92 96 06/14/21 06:00 06/14/21 08:00 06/14/21 11:45 Temperature 36.3 C L 36.6 C Pulse Rate 82 90 91 Respiratory Rate 18 18 Blood Pressure 124/74 127/74 Pulse Oximetry 96 98 Intake/Output Intake/Output: Intake & Output 06/11/21 06/12/21 06/13/21 06/14/21 23:59 23:59 23:59 23:59 Intake Total 1000 1400 2884 1250 Output Total 179 706 6772 700 Balance 850 1050 1109 550 Meds/Results Medications: Active Medications Generic Name Dose Route Start Last Admin Trade Name Freq PRN Reason Stop Dose Admin Alvimopan 12 mg 06/13/21 21:00 06/14/21 08:42 Alvimopan 12 Mg Capsule PO 06/20/21 21:01 12 mg Q12HR ALAINA Administration Enoxaparin Sodium 40 mg 06/13/21 09:00 06/14/21 08:42 Enoxaparin 40 Mg/0.4 Ml Syringe SUB-Q 40 mg DAILY ALAINA Administration Hydralazine HCl 10 mg 06/11/21 21:42 06/12/21 04:28 Hydralazine Hcl 20 Mg/Ml Vial IV PUSH 10 mg Q8H PRN Administration Blood Pressure - High Sodium Chloride 1,000 mls @ 100 mls/hr 06/11/21 19:25 06/14/21 04:42 Normal Saline Iv IV CONT 100 mls/hr .Q10H ALAINA Administration Ibuprofen 400 mg/ Sodium 104 mls @ 200 mls/hr 06/12/21 21:57 06/13/21 13:00 Chloride IVPB Infused Q6H PRN Infusion Pain Rated 1-3 Piperacillin Sod/Tazobactam Sod 2.25 gm in 50 mls @ 100 mls/hr 06/12/21 23:00 06/14/21 05:16 Zosyn 2.25 Gm/D5w 50 Ml IVPB Infused Q6H ALAINA Infusion Sodium Chloride 1,000 mls @ 500 mls/hr 06/14/21 11:30 Normal Saline Iv IV CONT 06/14/21 13:29 .Q2H ONE Morphine Sulfate 2 mg 06/12/21 21:57 06/14/21 04:42 Morphine Sulfate (*Crx) 2 Mg/Ml Inj IV PUSH 2 mg Q2H PRN Administration Pain Rated 4-6 Naloxone HCl 0.1 mg 06/12/21 21:57 Naloxone Hcl 0.4 Mg/Ml Vial IV PUSH Q2M PRN Opiate Reversal Ondansetron HCl 4 mg 06/11/21 22:39 06/12/21 19:01 Ondansetron Inj 4 Mg/2 Ml Vial IV PUSH 4 mg Q4H PRN Administration Nausea And Vomiting Ondansetron HCl 4 mg 06/12/21 21:57 Ondansetron Inj 4 Mg/2 Ml Vial IV PUSH Q4H PRN Nausea And Vomiting Pantoprazole Sodium 40 mg 06/13/21 09:00 06/14/21 08:42 Pantoprazole 40 Mg Tablet PO 40 mg QAM ALAINA Administration Radiology Results: ITS Impressions Chest X-Ray 06/11/21 17:01 IMPRESSION: Bilateral hyperinflation; no active cardiopulmonary disease
[2021-06-14] MEDS: SODIUM CHLORIDE 0.9% IV 1,000 ML 500 ML IV CONT (14:31)
[2021-06-14] MEDS: ONDANSETRON INJ 4 MG/2 ML VIAL IV PUSH (17:55)
[2021-06-15] VITALS (16 sets, daily range): BP systolic 110–147; BP diastolic 64–84; PULSE 86–133; RESP 12–24; TEMP 36.4–37; O2SAT 81–97
[2021-06-15] MEDS: METOPROLOL TARTRATE INJ 5 MG/5 ML VIAL IV PUSH (03:08)
[2021-06-15] MEDS: ONDANSETRON INJ 4 MG/2 ML VIAL IV PUSH ×3 (03:08→20:02)
[2021-06-15 05:34] LABS: Alanine Aminotransferase 15 U/L (4-50); Albumin Level 2.4 g/dL (3.5-5.1); Alkaline Phosphatase 29 U/L (38-126); Anion Gap 10 mmol/L (8-16); Aspartate Amino Transferase 27 U/L (17-59); Bilirubin,Total 2.4 mg/dL (0.2-1.3); Blood Urea Nitrogen 33 mg/dL (9-20); Calcium 7.5 mg/dL (8.4-10.2); Carbon Dioxide 17 mmol/L (22-30); Chloride 111 mmol/L (98-107); Estimated CRCL calculation 32 ml/min; Estimated Glomerular Filt Rate 49; Glucose 93 mg/dL (65-110); Magnesium 1.9 mg/dL (1.6-2.3); Phosphorus 2.3 mg/dL (2.5-4.5); Potassium 3.3 mmol/L (3.4-5.0); Sodium 138 mmol/L (137-145)
[2021-06-15 05:43] LABS: Basophils Percent Auto 0.9 % (0.2-1.2); Eosinophils Percent Auto 0.4 % (0-4.4); Hematocrit 38.3 % (42.0-52.0); Hemoglobin 11.9 g/dL (14.0-18.0); Immature Granulocyte Absolute 0.01 K/mm3 (0.00-0.031); Immature Granulocyte Percent A 0.4 % (0-0.5); Lymphocytes Percent Auto 4.4 % (18.3-44.2); Mean Corpuscular HGB Conc 31.1 g/dl (32-36); Mean Corpuscular Hemoglobin 25.5 pg (26-34); Mean Corpuscular Volume 82.2 fl (80-100); Mean Platelet Volume 10.7 fl (7.4-10.4); Monocytes Absolute Auto 0.2 K/mm3 (0.1-0.6); Monocytes Percent Auto 9.3 % (2.6-8.5); Neutrophils Absolute Auto 1.9 K/mm3 (1.3-6.7); Neutrophils Percent Auto 84.6 % (45.5-73.1); Platelet Count Result 180 k/mm3 (150-375); Red Blood Count 4.66 M/mm3 (4.6-6.20); Red Cell Distribution Width 16.8 % (11.5-14.5); White Blood Count 2.3 K/mm3 (4.5-10.0)
[2021-06-15 07:12] LABS: Burr Cells 1+ (NORMAL); Platelet Estimate Adequate (Adequate); Poikilocytosis 1+ (NORMAL)
[2021-06-15] MEDS: SODIUM CHLORIDE 0.9% IV 1,000 ML 100 ML IV CONT ×2 (10:43→17:25)
[2021-06-15] MEDS: ENOXAPARIN 40 MG/0.4 ML SYRINGE SUB-Q (10:46)
[2021-06-15] MEDS: PANTOPRAZOLE 40 MG TABLET PO (10:49)
--- NOTE | 2021-06-15 11:32 | PCDIET ---
Nutrition Follow-Up Complete: Nutrition Diagnosis: Inadequate oral intake related to intussusception as evidenced by NPO status with reported weight loss and poor intake prior to admission. Nutrition Goal: Patient to meet estimated nutritional needs. Goal not met. NG removed with initiation of clear liquid diet on 06/14/21 but was replaced today following emesis. POD #3 s/p ex lap with reduction of intussusception, extended right hemicolectomy and mobilization of splenic flexure. Recommend considering short term PPN. Suggest 30mL/hr Clinimix E 4.25/5 with 250mL 20% lipids on day one, increasing to 60mL/hr with 250mL 20% lipids on day two, as tolerated. Suggest tapering IV fluids as PN advances. If duration of NPO/clear liquid diet is anticipated to be greater than 7 days, recommend central PN. Last recorded weight is 61.6 kg which is stable with last review. Bowel Motility: BM x 1 on 06/13/21. Labs Reviewed: RBC (4.43), Hgb (11.6), Hct (36.8), BUN (21), Na (134), Alb (3.3), Flakita Ca (8.36) Meds Noted: Entereg, Apresoline, Zosyn, Morphine, Zofran, Protonix, NS at 100mL/hr Additional Notes: Abdominal incision with dressing. No documented pressure sores. Nutrition Monitoring and Evaluation: Follow up every 3 days.
--- NOTE | 2021-06-15 13:09 | PM.IMPN ---
Progress Note: A&P Assessment and Plan (1) Intussusception: Code(s): K56.1 - Intussusception Status: Acute Assessment and Plan: Patient presented with a couple days of abdominal pain, and loss of appetite, and no bowel movement. CT on admission showed intussusception. Initial treatment attempt was made with reduction via water enema, able to push the intussusception back to the splenic flexure, but not beyond that. Intussusception was then surgically reduced in the OR on the evening of 06/12, and pathology specimen was sent to the lab. NG tube removed then had to be placed again last night. Set to suction. Will cautiously resume diet as tolerated. Morphine present for breakthrough. Monitor for flatus and bowel movement - As of yet, has no bowel movement, however is passing plenty of gas. Continue postop care, including incentive spirometry, DVT prophylaxis, and monitoring for infection. Will promote increasing activity. Surgery on board, appreciate additional recommendations, including antibiotics. (2) ROBERTH (acute kidney injury): Code(s): N17.9 - Acute kidney failure, unspecified Status: Acute Assessment and Plan: CKD stage 3 baseline Cr around 1.3-1.4 There is some element of ROBERTH, likely related to patient not eating or drinking. Improved with hydration,now back to baseline Hold Ibuprofen (3) Enlarged prostate: Code(s): N40.0 - Benign prostatic hyperplasia without lower urinary tract symptoms Status: Chronic Assessment and Plan: Patient is NPO at this time but typically takes Flomax. Monitor urinary output. Bladder scan every shift. (4) HTN (hypertension), malignant: Code(s): I10 - Essential (primary) hypertension Status: Chronic Assessment and Plan: Patient is NPO so his amlodipine is on hold. Will continue with P.r.n. hydralazine. Due to acute illness target BP goal 140/90 while inpatient. (5) Right bundle branch block (RBBB) determined by electrocardiography: Code(s): I45.10 - Unspecified right bundle-branch block Status: Acute Assessment and Plan: Discussed with patient importance of outpatient Cardiology follow-up (6) Left anterior fascicular block: Code(s): I44.4 - Left anterior fascicular block Status: Acute Assessment and Plan: Discussed with patient importance of outpatient Cardiology follow-up Subjective Date/time seen: 06/15/21 13:09 He had an eventful night. Developed nausea and vomiting and NGT needed to be re-placed. Large output now and it is on LIS. Restless climbing out of bed. Has IVF going at 100/hr. Review of Systems Review of Systems: All systems reviewed & are unremarkable except as noted in HPI and below Exam Narrative: Gen: Alert, looks uncomfortable, NG tube in place, O2 by NC Abd: Soft, NT, ND, midline lana in place Heart: RRR Lungs: CTAB Ext: No lower extremity edema Objective Data Vital Signs Vital Signs: Vital Signs - 24 hr 06/14/21 14:00 06/14/21 16:00 06/14/21 18:00 Temperature 97.9 F Pulse Rate 101 H 105 H 97 Respiratory Rate 18 Blood Pressure 149/85 H Pulse Oximetry 95 06/14/21 20:00 06/14/21 22:00 06/15/21 00:00 Temperature 97.7 F 98 F Pulse Rate 107 H 110 H 103 H Respiratory Rate 18 18 Blood Pressure 152/85 H 147/79 H Pulse Oximetry 93 94 06/15/21 02:00 06/15/21 03:08 06/15/21 04:00 Temperature 97.8 F Pulse Rate 96 133 H 86 Respiratory Rate 24 H Blood Pressure 126/78 Pulse Oximetry 81 L 06/15/21 06:00 06/15/21 08:00 06/15/21 08:25 Temperature 98.4 F Pulse Rate 108 H 107 H 104 H Respiratory Rate 12 Blood Pressure 110/67 Pulse Oximetry 93 94 06/15/21 10:00 06/15/21 11:42 Temperature 98.6 F Pulse Rate 108 H 110 H Respiratory Rate 12 Blood Pressure 116/64 Pulse Oximetry 95 Intake/Output Intake/Output: Intake & Output 06/12/21 06/13/21 06/14/21 06/15/21 23:59 23:59 23:
[2021-06-15] MEDS: KCL 20 MEQ/0.45% NS 1,000 ML 100 ML IV CONT (14:28)
--- NOTE | 2021-06-15 14:52 | PM.PNGS ---
Progress Note: A&P Assessment and Plan (1) Intussusception: Code(s): K56.1 - Intussusception Status: Acute Assessment and Plan: likely c ileus, will get KUB in am, cont NG for now, ok for OOB, PT/OT, encourage IS Subjective Subjective Date/Time Seen: 06/15/21 14:52 Pt reports he is having some minimal incisional soreness. Pt denies further N/V since NG replaced. Pt wants to eat and is having some loose stools. Review of Systems Review of Systems: All systems reviewed & are unremarkable except as noted in HPI and below Exam Const: General: comfortable and no acute distress Nutritional Appearance: average body habitus Orientation/consciousness: oriented to person and oriented to place Resp: Effort & Inspection: normal respiratory effort Auscultation: clear to auscultation bilaterally Cardio: Rate: tachycardic Rhythm: regular rhythm GI: Inspection: normal to inspection and incision GI Palp: Yes Soft to palpation, No Tenderness to palpation present (GI), No Guarding due to palpation present (GI) and No Rigid due to palpation Other: soft, sl dist, kaleb TTP, incision C/D/I Objective Data Vital Signs Vital Signs: Vital Signs - 24 hr 06/14/21 16:00 06/14/21 18:00 06/14/21 20:00 Temperature 36.6 C 36.5 C Pulse Rate 105 H 97 107 H Respiratory Rate 18 18 Blood Pressure 149/85 H 152/85 H Pulse Oximetry 95 93 06/14/21 22:00 06/15/21 00:00 06/15/21 02:00 Temperature 36.6 C Pulse Rate 110 H 103 H 96 Respiratory Rate 18 Blood Pressure 147/79 H Pulse Oximetry 94 06/15/21 03:08 06/15/21 04:00 06/15/21 06:00 Temperature 36.6 C Pulse Rate 133 H 86 108 H Respiratory Rate 24 H Blood Pressure 126/78 Pulse Oximetry 81 L 06/15/21 08:00 06/15/21 08:25 06/15/21 10:00 Temperature 36.9 C Pulse Rate 107 H 104 H 108 H Respiratory Rate 12 Blood Pressure 110/67 Pulse Oximetry 93 94 06/15/21 11:42 06/15/21 14:00 Temperature 37.0 C Pulse Rate 110 H 112 H Respiratory Rate 12 Blood Pressure 116/64 Pulse Oximetry 95 Intake/Output Intake/Output: Intake & Output 06/12/21 06/13/21 06/14/21 06/15/21 23:59 23:59 23:59 23:59 Intake Total 1400 2884 2400 1400 Output Total 350 1775 1200 1550 Balance 1050 1109 1200 -150 Meds/Results Medications: Active Medications Generic Name Dose Route Start Last Admin Trade Name Freq PRN Reason Stop Dose Admin Alvimopan 12 mg 06/13/21 21:00 06/15/21 14:00 Alvimopan 12 Mg Capsule PO 06/20/21 21:01 Not Given Q12HR ALAINA Enoxaparin Sodium 40 mg 06/13/21 09:00 06/15/21 10:46 Enoxaparin 40 Mg/0.4 Ml Syringe SUB-Q 40 mg DAILY ALAINA Administration Hydralazine HCl 10 mg 06/11/21 21:42 06/12/21 04:28 Hydralazine Hcl 20 Mg/Ml Vial IV PUSH 10 mg Q8H PRN Administration Blood Pressure - High Sodium Chloride 1,000 mls @ 100 mls/hr 06/11/21 19:25 06/15/21 14:27 Normal Saline Iv IV CONT Infused .Q10H ALAINA Infusion Piperacillin Sod/Tazobactam Sod 2.25 gm in 50 mls @ 100 mls/hr 06/12/21 23:00 06/15/21 11:30 Zosyn 2.25 Gm/D5w 50 Ml IVPB Infused Q6H ALAINA Infusion Potassium Chloride/Sodium Chloride 1,000 mls @ 100 mls/hr 06/15/21 13:15 06/15/21 14:28 Kcl 20 Meq/0.45% Ns IV CONT 100 mls/hr .Q10H ALAINA Administration Morphine Sulfate 2 mg 06/12/21 21:57 06/14/21 04:42 Morphine Sulfate (*Crx) 2 Mg/Ml Inj IV PUSH 2 mg Q2H PRN Administration Pain Rated 4-6 Naloxone HCl 0.1 mg 06/12/21 21:57 Naloxone Hcl 0.4 Mg/Ml Vial IV PUSH Q2M PRN Opiate Reversal Ondansetron HCl 4 mg 06/11/21 22:39 06/15/21 10:51 Ondansetron Inj 4 Mg/2 Ml Vial IV PUSH 4 mg Q4H PRN Administration Nausea And Vomiting Ondansetron HCl 4 mg 06/12/21 21:57 Ondansetron Inj 4 Mg/2 Ml Vial IV PUSH Q4H PRN Nausea And Vomiting Pantoprazole Sodium 40 mg 06/13/21 09:00 06/15/21 10:49 Pantoprazole 40 Mg Tablet PO 40 mg QAM ALAINA Administration
[2021-06-15] MEDS: ALVIMOPAN 12 MG CAPSULE PO (20:03)
[2021-06-16] VITALS (15 sets, daily range): BP systolic 120–152; BP diastolic 51–86; PULSE 83–114; RESP 14–22; TEMP 36.2–36.8; O2SAT 93–100
[2021-06-16 05:17] LABS: Basophils Absolute Auto 0.1 K/mm3 (0.0-0.1); Basophils Percent Auto 0.5 % (0.2-1.2); Eosinophils Percent Auto 0.1 % (0-4.4); Hematocrit 32.6 % (42.0-52.0); Hemoglobin 10.3 g/dL (14.0-18.0); Immature Granulocyte Absolute 0.16 K/mm3 (0.00-0.031); Immature Granulocyte Percent A 1.7 % (0-0.5); Lymphocytes Absolute Auto 0.32 K/mm3 (0.9-3.2); Lymphocytes Percent Auto 3.5 % (18.3-44.2); Mean Corpuscular HGB Conc 31.6 g/dl (32-36); Mean Corpuscular Hemoglobin 25.5 pg (26-34); Mean Corpuscular Volume 80.7 fl (80-100); Mean Platelet Volume 10.8 fl (7.4-10.4); Monocytes Absolute Auto 0.5 K/mm3 (0.1-0.6); Monocytes Percent Auto 4.9 % (2.6-8.5); Neutrophils Absolute Auto 8.2 K/mm3 (1.3-6.7); Neutrophils Percent Auto 89.3 % (45.5-73.1); Platelet Count Result 125 k/mm3 (150-375); Red Blood Count 4.04 M/mm3 (4.6-6.20); Red Cell Distribution Width 16.9 % (11.5-14.5); White Blood Count 9.2 K/mm3 (4.5-10.0)
[2021-06-16 05:38] LABS: Alanine Aminotransferase 14 U/L (4-50); Albumin Level 2.1 g/dL (3.5-5.1); Alkaline Phosphatase 23 U/L (38-126); Anion Gap 7 mmol/L (8-16); Aspartate Amino Transferase 25 U/L (17-59); Bilirubin Direct 0.3 mg/dL (0-0.3); Bilirubin,Total 1.9 mg/dL (0.2-1.3); Blood Urea Nitrogen 41 mg/dL (9-20); Calcium 7.2 mg/dL (8.4-10.2); Carbon Dioxide 17 mmol/L (22-30); Chloride 113 mmol/L (98-107); Estimated CRCL calculation 28 ml/min; Estimated Glomerular Filt Rate 42; Glucose 99 mg/dL (65-110); Phosphorus 2.8 mg/dL (2.5-4.5); Potassium 3.4 mmol/L (3.4-5.0); Sodium 137 mmol/L (137-145)
[2021-06-16 05:39] LABS: Anisocytosis 1+ (NORMAL); Platelet Estimate Adequate (Adequate)
[2021-06-16 05:40] LABS: Crenated RBC 1+ (NORMAL)
[2021-06-16] MEDS: SODIUM CHLORIDE 0.9% IV 1,000 ML 100 ML IV CONT (08:14)
--- NOTE | 2021-06-16 09:19 | PM.PNGS ---
Progress Note: A&P Assessment and Plan (1) Intussusception: Code(s): K56.1 - Intussusception Status: Acute Assessment and Plan: s/p extended R hemicolectomy, postop ileus seems to be improving, will clamp NG and try some clears, NG poss out later today if ivonne clears, dc abx, encourage OOB/IS Subjective Subjective Date/Time Seen: 06/16/21 09:19 feels ok, no acute issues overnight, wants to drink, +flatus Review of Systems Review of Systems: All systems reviewed & are unremarkable except as noted in HPI and below Exam Const: General: cooperative, comfortable and no acute distress Orientation/consciousness: oriented to person and oriented to place Limitations: no limitations Resp: Effort & Inspection: normal respiratory effort Auscultation: clear to auscultation bilaterally Cardio: Rate: regular rate Rhythm: regular rhythm GI: Inspection: normal to inspection and incision GI Palp: Yes Soft to palpation and Yes Tenderness to palpation present (GI) Other: soft, sl dist, kaleb TTP, incision C/D/I Objective Data Vital Signs Vital Signs: Vital Signs - 24 hr 06/15/21 10:00 06/15/21 11:42 06/15/21 12:00 Temperature 37.0 C Pulse Rate 108 H 110 H Respiratory Rate 12 Blood Pressure 116/64 Pulse Oximetry 95 95 06/15/21 14:00 06/15/21 16:00 06/15/21 18:00 Temperature 36.4 C Pulse Rate 112 H 116 H 116 H Respiratory Rate 12 Blood Pressure 130/68 Pulse Oximetry 96 06/15/21 20:00 06/15/21 22:00 06/15/21 23:49 Temperature 36.6 C 36.6 C Pulse Rate 109 H 103 H 103 H Respiratory Rate 16 18 Blood Pressure 134/76 131/84 Pulse Oximetry 97 97 06/16/21 00:00 06/16/21 02:00 06/16/21 03:51 Temperature Pulse Rate 107 H Respiratory Rate Blood Pressure Pulse Oximetry 97 93 06/16/21 04:00 06/16/21 05:47 06/16/21 07:06 Temperature 36.8 C 36.2 C L Pulse Rate 114 H 102 H 98 Respiratory Rate 20 14 Blood Pressure 120/51 L 136/86 Pulse Oximetry 98 98 Intake/Output Intake/Output: Intake & Output 06/13/21 06/14/21 06/15/21 06/16/21 23:59 23:59 23:59 23:59 Intake Total 2884 2400 1750 1100 Output Total 1775 1200 1950 200 Balance 1109 1200 -200 900 Meds/Results Medications: Active Medications Generic Name Dose Route Start Last Admin Trade Name Freq PRN Reason Stop Dose Admin Alvimopan 12 mg 06/13/21 21:00 06/15/21 20:03 Alvimopan 12 Mg Capsule PO 06/20/21 21:01 12 mg Q12HR ALAINA Administration Enoxaparin Sodium 40 mg 06/13/21 09:00 06/15/21 10:46 Enoxaparin 40 Mg/0.4 Ml Syringe SUB-Q 40 mg DAILY ALAINA Administration Hydralazine HCl 10 mg 06/11/21 21:42 06/12/21 04:28 Hydralazine Hcl 20 Mg/Ml Vial IV PUSH 10 mg Q8H PRN Administration Blood Pressure - High Sodium Chloride 1,000 mls @ 100 mls/hr 06/11/21 19:25 06/16/21 08:14 Normal Saline Iv IV CONT 100 mls/hr .Q10H ALAINA Administration Piperacillin Sod/Tazobactam Sod 2.25 gm in 50 mls @ 100 mls/hr 06/12/21 23:00 06/16/21 04:46 Zosyn 2.25 Gm/D5w 50 Ml IVPB Infused Q6H ALAINA Infusion Morphine Sulfate 2 mg 06/12/21 21:57 06/14/21 04:42 Morphine Sulfate (*Crx) 2 Mg/Ml Inj IV PUSH 2 mg Q2H PRN Administration Pain Rated 4-6 Naloxone HCl 0.1 mg 06/12/21 21:57 Naloxone Hcl 0.4 Mg/Ml Vial IV PUSH Q2M PRN Opiate Reversal Ondansetron HCl 4 mg 06/11/21 22:39 06/15/21 20:02 Ondansetron Inj 4 Mg/2 Ml Vial IV PUSH 4 mg Q4H PRN Administration Nausea And Vomiting Ondansetron HCl 4 mg 06/12/21 21:57 Ondansetron Inj 4 Mg/2 Ml Vial IV PUSH Q4H PRN Nausea And Vomiting Pantoprazole Sodium 40 mg 06/13/21 09:00 06/15/21 10:49 Pantoprazole 40 Mg Tablet PO 40 mg QAM ALAINA Administration Radiology Results: ITS Impressions Enema w/Water Soluble 06/12/21 13:08 IMPRESSION: Colonic intussusception, unsuccessful reduction attempt. ADDENDUM: 06/12/21 [id number] I discussed these results with Elisha
[2021-06-16] MEDS: ENOXAPARIN 40 MG/0.4 ML SYRINGE SUB-Q (10:28)
[2021-06-16] MEDS: PANTOPRAZOLE 40 MG TABLET PO (10:28)
[2021-06-16] MEDS: ALVIMOPAN 12 MG CAPSULE PO ×2 (10:29→20:06)
--- NOTE | 2021-06-16 12:10 | PM.IMPN ---
Progress Note: A&P Assessment and Plan (1) Intussusception: Code(s): K56.1 - Intussusception Status: Acute Assessment and Plan: Patient presented with a couple days of abdominal pain, and loss of appetite, and no bowel movement. CT on admission showed intussusception. Initial treatment attempt was made with reduction via water enema, able to push the intussusception back to the splenic flexure, but not beyond that. Intussusception was then surgically reduced in the OR on the evening of 06/12 with extended right hemicolectomy, and pathology specimen was sent to the lab. Per surgery NG tube to be clamped today and initiate clear liquids, assess how he tolerates. Morphine present for breakthrough. Did have a bowel movement last night. Continue postop care, including incentive spirometry, DVT prophylaxis (enoxaparin), and monitoring for infection. Will promote increasing activity. Surgery on board, appreciate additional recommendations. (2) ROBERTH (acute kidney injury): Code(s): N17.9 - Acute kidney failure, unspecified Status: Acute Assessment and Plan: CKD stage 3 baseline Cr around 1.3-1.4 There is some element of ROBERTH, likely related to recent poor intake prior to hospitalization Improved with hydration, monitor Hold Ibuprofen (3) Enlarged prostate: Code(s): N40.0 - Benign prostatic hyperplasia without lower urinary tract symptoms Status: Chronic Assessment and Plan: Resume Flomax when he can eat. Monitor urinary output. (4) HTN (hypertension), malignant: Code(s): I10 - Essential (primary) hypertension Status: Chronic Assessment and Plan: Patient is NPO so his amlodipine is on hold. Will continue with P.r.n. hydralazine. Blood pressure has been reasonable. (5) Right bundle branch block (RBBB) determined by electrocardiography: Code(s): I45.10 - Unspecified right bundle-branch block Status: Acute Assessment and Plan: Outpatient Cardiology follow-up (6) Left anterior fascicular block: Code(s): I44.4 - Left anterior fascicular block Status: Acute Assessment and Plan: Outpatient Cardiology follow-up Subjective Date/time seen: 06/16/21 12:10 He is much less interactive this morning than prior. Eyes open reports feeling okay but only says few words. Hemodynamically stable. NG tube in place. Reported per Nursing 950 mL of output in 24 hours. He did have a bowel movement last night. Review of Systems Review of Systems: All systems reviewed & are unremarkable except as noted in HPI and below Exam Narrative: Gen: Alert, looks uncomfortable, NG tube in place, O2 by NC Abd: Soft, NT, ND, midline lana in place Heart: RRR Lungs: CTAB Ext: No lower extremity edema Objective Data Vital Signs Vital Signs: Vital Signs - 24 hr 06/15/21 14:00 06/15/21 16:00 06/15/21 18:00 Temperature 97.6 F Pulse Rate 112 H 116 H 116 H Respiratory Rate 12 Blood Pressure 130/68 Pulse Oximetry 96 06/15/21 20:00 06/15/21 22:00 06/15/21 23:49 Temperature 97.8 F 98 F Pulse Rate 109 H 103 H 103 H Respiratory Rate 16 18 Blood Pressure 134/76 131/84 Pulse Oximetry 97 97 06/16/21 00:00 06/16/21 02:00 06/16/21 03:51 Temperature Pulse Rate 107 H Respiratory Rate Blood Pressure Pulse Oximetry 97 93 06/16/21 04:00 06/16/21 05:47 06/16/21 07:06 Temperature 98.2 F 97.2 F L Pulse Rate 114 H 102 H 98 Respiratory Rate 20 14 Blood Pressure 120/51 L 136/86 Pulse Oximetry 98 98 Intake/Output Intake/Output: Intake & Output 06/13/21 06/14/21 06/15/21 06/16/21 23:59 23:59 23:59 23:59 Intake Total 2884 2400 1750 1100 Output Total 1775 1200 1950 200 Balance 1109 1200 -200 900 Meds/Results Medications: Active Medications Generic Name Dose Route Start Last Admin Trade Name Freq PRN Reason Stop Dose Admin Alvimopan 12 mg 06/13/21 21:00 06/16/21 10:29
[2021-06-16] MEDS: LACTATED RINGERS 1,000 ML 100 ML IV CONT ×2 (12:27→22:56)
[2021-06-16] MEDS: MORPHINE SULFATE (*CRX) 2 MG/ML INJ IV PUSH (20:06)
[2021-06-16] MEDS: ONDANSETRON INJ 4 MG/2 ML VIAL IV PUSH (22:57)
[2021-06-17] VITALS (9 sets, daily range): BP systolic 98–179; BP diastolic 35–97; PULSE 49–86; RESP 12–20; TEMP 36.1–37.4; O2SAT 97–100
[2021-06-17 05:30] LABS: Basophils Absolute Auto 0.1 K/mm3 (0.0-0.1); Basophils Percent Auto 0.6 % (0.2-1.2); Eosinophils Absolute Auto 0.1 K/mm3 (0-0.3); Eosinophils Percent Auto 0.6 % (0-4.4); Hematocrit 32.1 % (42.0-52.0); Hemoglobin 9.9 g/dL (14.0-18.0); Immature Granulocyte Absolute 0.05 K/mm3 (0.00-0.031); Immature Granulocyte Percent A 0.6 % (0-0.5); Lymphocytes Absolute Auto 0.33 K/mm3 (0.9-3.2); Lymphocytes Percent Auto 3.8 % (18.3-44.2); Mean Corpuscular HGB Conc 30.8 g/dl (32-36); Mean Corpuscular Volume 84.3 fl (80-100); Mean Platelet Volume 11.1 fl (7.4-10.4); Monocytes Absolute Auto 0.4 K/mm3 (0.1-0.6); Monocytes Percent Auto 4.2 % (2.6-8.5); Neutrophils Absolute Auto 7.8 K/mm3 (1.3-6.7); Neutrophils Percent Auto 90.2 % (45.5-73.1); Platelet Count Result 124 k/mm3 (150-375); Red Blood Count 3.81 M/mm3 (4.6-6.20); Red Cell Distribution Width 17.1 % (11.5-14.5); White Blood Count 8.6 K/mm3 (4.5-10.0)
[2021-06-17 05:40] LABS: Albumin Level 2.1 g/dL (3.5-5.1); Anion Gap 14 mmol/L (8-16); Blood Urea Nitrogen 35 mg/dL (9-20); Calcium 7.3 mg/dL (8.4-10.2); Carbon Dioxide 17 mmol/L (22-30); Chloride 110 mmol/L (98-107); Estimated CRCL calculation 40 ml/min; Estimated Glomerular Filt Rate > 60; Glucose 71 mg/dL (65-110); Potassium 3.1 mmol/L (3.4-5.0); Sodium 141 mmol/L (137-145)
[2021-06-17 06:49] LABS: Anisocytosis 1+ (NORMAL); Platelet Estimate Adequate (Adequate)
[2021-06-17 06:50] LABS: Burr Cells 2+ (NORMAL); Ovalocytes 2+ (NORMAL)
--- NOTE | 2021-06-17 09:20 | PM.IMPN ---
Progress Note: A&P Assessment and Plan (1) Intussusception: Code(s): K56.1 - Intussusception Status: Acute Assessment and Plan: Patient presented with a couple days of abdominal pain, and loss of appetite, and no bowel movement. CT on admission showed intussusception. Initial treatment attempt was made with reduction via water enema, able to push the intussusception back to the splenic flexure, but not beyond that. Intussusception was then surgically reduced in the OR on the evening of 06/12 with extended right hemicolectomy, and pathology specimen was sent to the lab. Per surgery NG tube has been clamped sine yesterday. No vomiting but tolerates clear liquids has been slow. Possibly remove NGT today if he is tolerating the diet. Morphine present for breakthrough. Did have a bowel movement last night. Continue postop care, including incentive spirometry, DVT prophylaxis (enoxaparin), and monitoring for infection. Will promote increasing activity. Surgery on board, appreciate additional recommendations. (2) ROBERTH (acute kidney injury): Code(s): N17.9 - Acute kidney failure, unspecified Status: Acute Assessment and Plan: CKD stage 3 baseline Cr around 1.3-1.4 There is some element of ROBERTH, likely related to recent poor intake prior to hospitalization Improved with hydration, monitor Hold Ibuprofen (3) Enlarged prostate: Code(s): N40.0 - Benign prostatic hyperplasia without lower urinary tract symptoms Status: Chronic Assessment and Plan: Resume Flomax when he can eat. Monitor urinary output. (4) HTN (hypertension), malignant: Code(s): I10 - Essential (primary) hypertension Status: Chronic Assessment and Plan: Patient is NPO on and off so his amlodipine is on hold. Will continue with P.r.n. hydralazine. Resume amlodipine when he tolerates oral intake. (5) Right bundle branch block (RBBB) determined by electrocardiography: Code(s): I45.10 - Unspecified right bundle-branch block Status: Acute Assessment and Plan: Outpatient Cardiology follow-up (6) Left anterior fascicular block: Code(s): I44.4 - Left anterior fascicular block Status: Acute Assessment and Plan: Outpatient Cardiology follow-up Subjective Date/time seen: 06/17/21 09:20 NG tube clamped since yesterday morning. He had multiple bowel movements. Appetite is low. Some nausea but no vomiting. Hemodynamically stable. Afebrile. Review of Systems Review of Systems: All systems reviewed & are unremarkable except as noted in HPI and below Exam Narrative: Gen: Alert, NG tube in place but clamped Abd: Soft, NT, ND, midline lana in place Heart: RRR Lungs: CTAB Ext: No lower extremity edema Objective Data Vital Signs Vital Signs: Vital Signs - 24 hr 06/16/21 10:00 06/16/21 12:00 06/16/21 12:50 Temperature 98.3 F Pulse Rate 98 114 H 93 Respiratory Rate 20 Blood Pressure 148/80 H Pulse Oximetry 98 97 06/16/21 14:00 06/16/21 16:00 06/16/21 17:23 Temperature 98.2 F Pulse Rate 89 94 90 Respiratory Rate 22 H Blood Pressure 143/82 H Pulse Oximetry 97 06/16/21 20:00 06/16/21 22:00 06/17/21 00:00 Temperature 98.2 F 97.8 F Pulse Rate 85 83 83 Respiratory Rate 20 20 Blood Pressure 152/85 H 129/78 Pulse Oximetry 100 98 06/17/21 02:00 06/17/21 04:00 06/17/21 06:00 Temperature 98.3 F Pulse Rate 85 82 79 Respiratory Rate 20 Blood Pressure 179/97 H Pulse Oximetry 06/17/21 08:00 Temperature 97.7 F Pulse Rate 80 Respiratory Rate 12 Blood Pressure 148/77 H Pulse Oximetry 97 Intake/Output Intake/Output: Intake & Output 06/14/21 06/15/21 06/16/21 06/17/21 23:59 23:59 23:59 23:59 Intake Total 2400 1750 2720 700 Output Total 1200 1950 300 Balance 1200 -200 2420 700 Meds/Results Medications: Active Medications Generic Name Dose Route Start Last Admin Trade Nam
[2021-06-17] MEDS: LACTATED RINGERS 1,000 ML 100 ML IV CONT ×2 (09:35→20:34)
[2021-06-17] MEDS: ENOXAPARIN 40 MG/0.4 ML SYRINGE SUB-Q (10:48)
[2021-06-17] MEDS: PANTOPRAZOLE 40 MG TABLET PO (10:48)
[2021-06-17] MEDS: ALVIMOPAN 12 MG CAPSULE PO (10:48)
--- NOTE | 2021-06-17 14:09 | PM.PNGS ---
Progress Note: A&P Assessment and Plan (1) Intussusception: Code(s): K56.1 - Intussusception Status: Acute Assessment and Plan: ivonne clears, +BM, will remove NG, encourage OOB/IS, setup placement, await path Subjective Subjective Date/Time Seen: 06/17/21 14:09 feels ok, no N/V, multiple BMs, slightly confused, weak Review of Systems Review of Systems: All systems reviewed & are unremarkable except as noted in HPI and below Exam Const: General: comfortable, no acute distress and tired appearing Nutritional Appearance: average body habitus Orientation/consciousness: confusion Resp: Effort & Inspection: normal respiratory effort Auscultation: clear to auscultation bilaterally Cardio: Rate: regular rate Rhythm: regular rhythm GI: Inspection: normal to inspection and incision GI Palp: Yes Soft to palpation and No Tenderness to palpation present (GI) Other: soft, sl dist, kaleb TTP Objective Data Vital Signs Vital Signs: Vital Signs - 24 hr 06/16/21 16:00 06/16/21 17:23 06/16/21 20:00 Temperature 36.8 C 36.8 C Pulse Rate 94 90 85 Respiratory Rate 22 H 20 Blood Pressure 143/82 H 152/85 H Pulse Oximetry 97 100 06/16/21 22:00 06/17/21 00:00 06/17/21 02:00 Temperature 36.6 C Pulse Rate 83 83 85 Respiratory Rate 20 Blood Pressure 129/78 Pulse Oximetry 98 06/17/21 04:00 06/17/21 06:00 06/17/21 08:00 Temperature 36.8 C 36.5 C Pulse Rate 82 79 80 Respiratory Rate 20 12 Blood Pressure 179/97 H 148/77 H Pulse Oximetry 97 06/17/21 12:52 Temperature 37.4 C Pulse Rate 49 L Respiratory Rate 18 Blood Pressure 98/35 L Pulse Oximetry 100 Intake/Output Intake/Output: Intake & Output 06/14/21 06/15/21 06/16/21 06/17/21 23:59 23:59 23:59 23:59 Intake Total 2400 1750 2720 820 Output Total 1200 1950 300 Balance 1200 -200 2420 820 Meds/Results Medications: Active Medications Generic Name Dose Route Start Last Admin Trade Name Freq PRN Reason Stop Dose Admin Alvimopan 12 mg 06/13/21 21:00 09/01/21 10:48 Alvimopan 12 Mg Capsule PO 06/20/21 21:01 12 mg Q12HR ALAINA Administration Enoxaparin Sodium 40 mg 06/13/21 09:00 06/17/21 10:48 Enoxaparin 40 Mg/0.4 Ml Syringe SUB-Q 40 mg DAILY ALAINA Administration Hydralazine HCl 10 mg 06/11/21 21:42 06/12/21 04:28 Hydralazine Hcl 20 Mg/Ml Vial IV PUSH 10 mg Q8H PRN Administration Blood Pressure - High Lactated Ringer's 1,000 mls @ 100 mls/hr 06/16/21 12:15 06/17/21 06:21 Lr - Lactated Ringers Iv IV CONT 100 mls/hr .Q10H ALAINA Infusion Morphine Sulfate 2 mg 06/12/21 21:57 06/16/21 20:06 Morphine Sulfate (*Crx) 2 Mg/Ml Inj IV PUSH 2 mg Q2H PRN Administration Pain Rated 4-6 Naloxone HCl 0.1 mg 06/12/21 21:57 Naloxone Hcl 0.4 Mg/Ml Vial IV PUSH Q2M PRN Opiate Reversal Ondansetron HCl 4 mg 06/11/21 22:39 06/16/21 22:57 Ondansetron Inj 4 Mg/2 Ml Vial IV PUSH 4 mg Q4H PRN Administration Nausea And Vomiting Pantoprazole Sodium 40 mg 06/13/21 09:00 06/17/21 10:48 Pantoprazole 40 Mg Tablet PO 40 mg QAM ALAINA Administration Radiology Results: ITS Impressions Enema w/Water Soluble 06/12/21 13:08 IMPRESSION: Colonic intussusception, unsuccessful reduction attempt. ADDENDUM: 06/12/21 1443 I discussed these results with Fela Bustos MD. Patient has also developed air-filled small bowel consistent with obstruction (terminal ileum also in the intussusception). Chest X-Ray 06/15/21 07:54 IMPRESSION: 1. Left basilar airspace opacities, consistent with atelectasis versus pneumonia. Abdomen X-Ray 06/16/21 06:59 IMPRESSION: 1. Dilated small bowel, likely postoperative ileus. Labs Labs: Laboratory Results - last 24 hr 06/17/21 06/17/21 05:02 05:02 WBC 8.6 RBC 3.81 L Hgb 9.9 L Hct 32.1 L MCV 84.3 MCH 26.0 MCHC 30.8 L RDW 17.1 H Plt Count 124 L MPV 11.1 H Immat
--- NOTE | 2021-06-17 17:15 | PC.NURSE ---
This patient, Nader Zapata, was transferred to [facility] on 06/17/21 at 1717. Personal belongings sent with patient. Report given to Danielle MOONEY. Appropriate documentation sent with patient.
[2021-06-18] VITALS: BP 128/77; PULSE 85; RESP 18; TEMP 35.5; O2SAT 97
[2021-06-18 05:21] VITALS: BP 149/75; PULSE 75; RESP 18; TEMP 36.1; O2SAT 98
[2021-06-18 05:58] LABS: Basophils Percent Auto 0.4 % (0.2-1.2); Eosinophils Absolute Auto 0.1 K/mm3 (0-0.3); Eosinophils Percent Auto 0.7 % (0-4.4); Hematocrit 34.5 % (42.0-52.0); Hemoglobin 10.6 g/dL (14.0-18.0); Immature Granulocyte Absolute 0.04 K/mm3 (0.00-0.031); Immature Granulocyte Percent A 0.5 % (0-0.5); Lymphocytes Absolute Auto 0.43 K/mm3 (0.9-3.2); Lymphocytes Percent Auto 5.2 % (18.3-44.2); Mean Corpuscular HGB Conc 30.7 g/dl (32-36); Mean Corpuscular Hemoglobin 25.8 pg (26-34); Mean Corpuscular Volume 83.9 fl (80-100); Mean Platelet Volume 11.2 fl (7.4-10.4); Monocytes Absolute Auto 0.4 K/mm3 (0.1-0.6); Monocytes Percent Auto 4.8 % (2.6-8.5); Neutrophils Absolute Auto 7.4 K/mm3 (1.3-6.7); Neutrophils Percent Auto 88.4 % (45.5-73.1); Platelet Count Result 109 k/mm3 (150-375); Red Blood Count 4.11 M/mm3 (4.6-6.20); Red Cell Distribution Width 17.2 % (11.5-14.5); White Blood Count 8.3 K/mm3 (4.5-10.0)
[2021-06-18 06:56] LABS: Anion Gap 12 mmol/L (8-16); Blood Urea Nitrogen 23 mg/dL (9-20); Calcium 7.3 mg/dL (8.4-10.2); Carbon Dioxide 20 mmol/L (22-30); Chloride 107 mmol/L (98-107); Estimated CRCL calculation 46 ml/min; Estimated Glomerular Filt Rate > 60; Glucose 78 mg/dL (65-110); Potassium 3.1 mmol/L (3.4-5.0); Sodium 139 mmol/L (137-145)
[2021-06-18] MEDS: LACTATED RINGERS 1,000 ML 100 ML IV CONT (06:58)
[2021-06-18] MEDS: PANTOPRAZOLE 40 MG TABLET PO (08:21)
[2021-06-18] MEDS: ALVIMOPAN 12 MG CAPSULE PO ×2 (08:21→20:00)
[2021-06-18] MEDS: ENOXAPARIN 40 MG/0.4 ML SYRINGE SUB-Q (08:21)
--- NOTE | 2021-06-18 09:21 | PM.PNGS ---
Progress Note: A&P Assessment and Plan (1) Intussusception: Code(s): K56.1 - Intussusception Status: Acute Assessment and Plan: Multiple episodes of vomiting this morning, abd exam benign, incision looks good, +BM. Will order KUB. Continue clears for now. Encouraged increasing activity, ambulating with assist, up in chair. Awaiting pathology. Care coordination working on SNF placement for eventual discharge. Additional Plan I have discussed the plan of care with Dr. Bustos. Subjective Subjective Date/Time Seen: 06/18/21 09:21 Post Op day: 3 Patient reports: voiding w/o difficulty (incontinent), diarrhea, nausea, vomiting and afebrile Interval history: Patient seen this morning and sleeping when entering the room. He was easily arousable. He reports feeling poorly this morning and having nausea, lack of appetite, and at least 1 episode of vomiting this morning. Per the nurse, he did vomit just recently with bilious-appearing emesis. He has had multiple liquid bowel movements since yesterday. Still feeling overall weak and tired. No other acute issues or complaints at this time. Review of Systems Review of Systems: All systems reviewed & are unremarkable except as noted in HPI and below Constitutional: Constitutional: Reports no additional constitutional complaints, Denies fever(s) and Denies headache(s) Cardiovascular: Cardiovascular: Reports no additional cardiovascular complaints and Denies chest pain Respiratory: Respiratory: Reports no additional respiratory complaints, Denies cough and Denies dyspnea Gastrointestinal: Gastrointestinal: Reports as per HPI and Reports no additional gastrointestinal complaints Neurologic: Reports system reviewed and no additional complaints, except as documented, Denies Abnormal speech present, Denies focal weakness and Reports weakness (generalized weakness) Exam Const: General: no acute distress, alert, awake and tired appearing Orientation/consciousness: patient oriented x3 GI: Inspection: non-distended and incision (upper midline incision clean and dry, min. ecchymosis at umbilicus) GI Palp: Yes Soft to palpation, No Tenderness to palpation present (GI), No Guarding due to palpation present (GI) and No Rebound tenderness present Auscultation: normal bowel sounds Skin: General skin exam: normal color Neuro: General: moves all extremities and no focal motor deficits Speech: No Abnormal speech present Extrem: General: no calf tenderness and edema bilateral (mild dependent edema in hands) Psych: Mental Status: mental status grossly normal Insight: Fair insight present (Psych) Judgement: Fair judgement present (Psych) Objective Data Vital Signs Vital Signs: Vital Signs - 24 hr 06/17/21 12:52 06/17/21 17:20 06/17/21 20:00 Temperature 99.4 F 98.5 F Pulse Rate 49 L 81 86 Respiratory Rate 18 16 18 Blood Pressure 98/35 L 158/73 H Pulse Oximetry 100 99 97 06/17/21 21:13 06/18/21 00:00 06/18/21 05:21 Temperature 96.9 F L 96 F L 96.9 F L Pulse Rate 86 85 75 Respiratory Rate 18 18 18 Blood Pressure 149/86 H 128/77 149/75 H Pulse Oximetry 97 97 98 Intake/Output Intake/Output: Intake & Output 06/15/21 06/16/21 06/17/21 06/18/21 23:59 23:59 23:59 23:59 Intake Total 1750 2720 2320 1240 Output Total 1950 300 Balance -200 2420 2320 1240 Meds/Results Medications: Active Medications Generic Name Dose Route Start Last Admin Trade Name Freq PRN Reason Stop Dose Admin Alvimopan 12 mg 06/13/21 21:00 06/18/21 08:21 Alvimopan 12 Mg Capsule PO 06/20/21 21:01 12 mg Q12HR ALAINA Administration Enoxaparin Sodium 40 mg 06/13/21 09:00 06/18/21 08:21 Enoxaparin 40 Mg/0.4 Ml Syringe SUB-Q 40 mg DAILY ALAINA Administration Hydralazine HCl 10 mg 06/11/21 21:42 06/12/21 04:28 Hydralazine Hcl 20 Mg/Ml Vial IV PUSH 10 mg Q8H PRN Administration Blood Pressure - High Lactated Ringer's 1,000 mls @ 50 mls/hr 06/16/21 12:1
--- NOTE | 2021-06-18 10:47 | PCDIET ---
Nutrition Follow-Up Complete: Inadequate oral intake related to intussusception as evidenced by NPO status with reported weight loss and poor intake prior to admission. Patient to meet estimated nutritional needs. Goal: goal not met; continue goal Pt current nutrition is clear liquids Nutrition recommendation: Recommend patient get further nutrition support 2/2 to poor intake and diarrhea/emesis Last recorded weight is 64.1 kg, up from admit wt of 61.7kg (I/O +2320) Bowel Motility: diarrhea Labs Reviewed: Hgb 10.6, Hct 34.5, Albumin 2.1, K 3.1, BUN 23 Meds Noted:LRs, Roger, Protonix Additional Notes: Pt is on day seven without diet advancement. PO intake on clear liquids is very low (10, 15, 25%). Signs of malnutrition include temporal and orbital wasting. Recommend nutrition repletion with PPN if diet advancement will be in the next 24-48 hours. Plans for KUB today. Recommend Clinimix E 4.25/5 starting at 40mL/hr day one and up to 80ml day two to provide 1153kcals and 82g protein, meeting 100% of protein needs. If pt unable to advance diet or improve oral/enteral intake in the next 48hrs, recommend TPN (Clinimix E5/15 and 250ml 20% lipids) at 40ml/hr, advancing slowly to goal of 80ml/hr to meet 100% of nutrition needs. Suggest tapering IV fluids as PN advances. Pt may also benefit from florastor and metamucil to help bulk stool. Follow up every 3 days.
[2021-06-18 14:30] VITALS: BP 123/64; PULSE 92; RESP 20; TEMP 36.6; O2SAT 97
--- NOTE | 2021-06-18 14:34 | PM.IMPN ---
Progress Note: A&P Assessment and Plan (1) Intussusception: Code(s): K56.1 - Intussusception Status: Acute Assessment and Plan: Patient presents with complaints of abdominal pain and loss of appetite and no bowel movement. CT on admission showed intussusception. Initial treatment attempt was made with reduction via water enema, able to push the intussusception back to the splenic flexure, but not beyond that. Intussusception was then surgically reduced in the OR on the evening of 06/12 with extended right hemicolectomy, and pathology specimen was sent to the lab. Path still pending. NGT out. Clear liquids started but not eating much. +BMs. Add supplements. Check dopplers of the LE. Lasix once. Continue postop care, including incentive spirometry, DVT prophylaxis (enoxaparin), and monitoring for infection. Continue PT/OT. Surgery on board and appreciate their input. (2) ROBERTH (acute kidney injury): Code(s): N17.9 - Acute kidney failure, unspecified Status: Acute Assessment and Plan: Patient with CKD stage 3 with baseline Cr around 1.3-1.4. Cr 1.6 on admission. With IV fluids, Cr has trended to 1.0. Suspect patient is fluid overloaded resulting in the the lower than expected Cr value and the clinical findings. Patient also with persistent metabolic acidosis probably related to ketosis or ROBERTH/CKD or NG tube or diarrhea or mixed. Lactic was normal on admission. Should improve once diet advanced and IV fluids stopped. If diet not advanced or patient not eating well, consider PPN or NGT feeding. (3) Chronic kidney disease (CKD): Qualifiers: Chronic kidney disease stage: stage 3 (moderate) Chronic kidney disease stage 3 subtype: stage 3b (GFR 30-44) Qualified Code(s): N18.32 - Chronic kidney disease, stage 3b Code(s): N18.9 - Chronic kidney disease, unspecified Status: Acute Assessment and Plan: As above (4) Enlarged prostate: Code(s): N40.0 - Benign prostatic hyperplasia without lower urinary tract symptoms Status: Chronic Assessment and Plan: Stable. No events urine retention exam. Resume Flomax when he is eating normally. Monitor renal function. (5) HTN (hypertension), malignant: Code(s): I10 - Essential (primary) hypertension Status: Chronic Assessment and Plan: Patient's blood pressure was reviewed on 06/18 Blood pressure remains mostly well controlled. Continue to monitor. Will continue to hold amlodipine for now. (6) DVT prophylaxis: Code(s): Z29.9 - Encounter for prophylactic measures, unspecified Status: Acute Assessment and Plan: Lovenox Subjective Date/time seen: 06/18/21 14:34 Interval history: 80yo male with hx of HTN, CVA and BPH who presents with abdominal pain and found to have colonic intussusception. Assuming care. Chart reviewed. Patient having multiple bowel movements with stool incontinence. Patient not eating very much. He is on a clear liquid diet. He had decreased appetite no nausea. He denies any abdominal pain. No chest pain or shortness of breath. He is up walking about 6 ft with therapy Exam Narrative: AF 96.9 149/75 75 18 98% ra Gen - NARD sitting up in the chair working with therapist Chest - decreased BS bibasilar, nml RR CV - RRR S1/S2 with occasional extra beats Abd - Soft, NT, ND, vertical midline lana in place with scant erythema but spot of serous drainage noted. Ext - R>L bilateral pedal edema. Negative Leon Neuro - Alert and oriented x4 expect month May. Nonfocal exam. Psych - Nml mood but odd affect Skin - Warm and dry Objective Data Vital Signs Vital Signs: Vital Signs - 24 hr 06/17/21 17:20 06/17/21 20:00 06/17/21 21:13 Temperature 98.5 F 96.9 F L Pulse Rate 81 86 86 Respiratory Rate 16 18 18 Blood Pressure 158/73 H 149/86 H Pulse Oximetry 99 97 97 06/18/21 00:00 06/18/21 05:21 Temperature 96
[2021-06-18] MEDS: POTASSIUM CHLORIDE 20 MEQ TABLET PO (15:17)
[2021-06-18] MEDS: FUROSEMIDE INJ 40 MG/4 ML VIAL 20 MG IV PUSH (16:48)
[2021-06-18 20:46] VITALS: BP 123/77; PULSE 87; RESP 22; TEMP 36.5; O2SAT 94
[2021-06-19] VITALS: BP 120/77; PULSE 82; RESP 18; TEMP 36.4; O2SAT 96
[2021-06-19] MEDS: LACTATED RINGERS 1,000 ML 50 ML IV CONT (02:00)
[2021-06-19 04:01] VITALS: BP 130/79; PULSE 86; RESP 20; TEMP 36.5; O2SAT 97
[2021-06-19 06:14] LABS: Basophils Percent Auto 0.2 % (0.2-1.2); Eosinophils Absolute Auto 0.1 K/mm3 (0-0.3); Eosinophils Percent Auto 0.9 % (0-4.4); Hematocrit 34.1 % (42.0-52.0); Hemoglobin 10.1 g/dL (14.0-18.0); Immature Granulocyte Absolute 0.09 K/mm3 (0.00-0.031); Immature Granulocyte Percent A 0.9 % (0-0.5); Lymphocytes Absolute Auto 0.48 K/mm3 (0.9-3.2); Lymphocytes Percent Auto 4.8 % (18.3-44.2); Mean Corpuscular HGB Conc 29.6 g/dl (32-36); Mean Corpuscular Hemoglobin 25.3 pg (26-34); Mean Corpuscular Volume 85.3 fl (80-100); Mean Platelet Volume 11.5 fl (7.4-10.4); Monocytes Absolute Auto 0.6 K/mm3 (0.1-0.6); Monocytes Percent Auto 5.9 % (2.6-8.5); Neutrophils Absolute Auto 8.8 K/mm3 (1.3-6.7); Neutrophils Percent Auto 87.3 % (45.5-73.1); Platelet Count Result 125 k/mm3 (150-375); Red Cell Distribution Width 17.3 % (11.5-14.5); White Blood Count 10.1 K/mm3 (4.5-10.0)
[2021-06-19 06:17] LABS: Alanine Aminotransferase 16 U/L (4-50); Albumin Level 1.9 g/dL (3.5-5.1); Alkaline Phosphatase 32 U/L (38-126); Anion Gap 9 mmol/L (8-16); Aspartate Amino Transferase 21 U/L (17-59); Bilirubin,Total 1.2 mg/dL (0.2-1.3); Blood Urea Nitrogen 20 mg/dL (9-20); Calcium 7.1 mg/dL (8.4-10.2); Carbon Dioxide 16 mmol/L (22-30); Chloride 110 mmol/L (98-107); Estimated CRCL calculation 54 ml/min; Estimated Glomerular Filt Rate > 60; Glucose 65 mg/dL (65-110); Magnesium 1.9 mg/dL (1.6-2.3); Phosphorus 2.8 mg/dL (2.5-4.5); Potassium 3.1 mmol/L (3.4-5.0); Sodium 135 mmol/L (137-145)
[2021-06-19] MEDS: KCL 20 MEQ/D5/0.9% SOD CHL 1,000 ML 50 ML IV CONT ×2 (08:26→18:47)
[2021-06-19] MEDS: ONDANSETRON INJ 4 MG/2 ML VIAL IV PUSH ×2 (08:31→21:04)
[2021-06-19] MEDS: ALVIMOPAN 12 MG CAPSULE PO (08:35)
[2021-06-19] MEDS: ENOXAPARIN 40 MG/0.4 ML SYRINGE SUB-Q (08:35)
[2021-06-19] MEDS: PANTOPRAZOLE 40 MG TABLET PO (08:35)
[2021-06-19] MEDS: POTASSIUM CHLORIDE 20 MEQ TABLET 40 MEQ PO (08:35)
--- NOTE | 2021-06-19 09:44 | PM.PNGS ---
Progress Note: A&P Assessment and Plan (1) Intussusception: Code(s): K56.1 - Intussusception Status: Acute Assessment and Plan: path reviewed, cont to encourage po intake/supplements, PT/OT, OOB, SNF placement Subjective Subjective Date/Time Seen: 06/19/21 09:44 no acute issues, poor po intake, some nausea per nursing Review of Systems Review of Systems: All systems reviewed & are unremarkable except as noted in HPI and below Exam Const: General: no acute distress and ill appearing Nutritional Appearance: malnourished Orientation/consciousness: oriented to person and oriented to place Resp: Effort & Inspection: normal respiratory effort Auscultation: clear to auscultation bilaterally Cardio: Rate: regular rate Rhythm: regular rhythm GI: Inspection: normal to inspection and incision GI Palp: Yes Soft to palpation and No Tenderness to palpation present (GI) Other: soft, sl dist, kaleb TTP, incision C/D/I Objective Data Vital Signs Vital Signs: Vital Signs - 24 hr 06/18/21 14:30 06/18/21 20:46 06/19/21 00:00 Temperature 36.6 C 36.5 C 36.4 C L Pulse Rate 92 87 82 Respiratory Rate 20 22 H 18 Blood Pressure 123/64 123/77 120/77 Pulse Oximetry 97 94 96 06/19/21 04:01 Temperature 36.5 C Pulse Rate 86 Respiratory Rate 20 Blood Pressure 130/79 Pulse Oximetry 97 Intake/Output Intake/Output: Intake & Output 06/16/21 06/17/21 06/18/21 06/19/21 23:59 23:59 23:59 23:59 Intake Total 2720 2320 1450 1240 Output Total 300 Balance 2420 2320 1450 1240 Meds/Results Medications: Active Medications Generic Name Dose Route Start Last Admin Trade Name Freq PRN Reason Stop Dose Admin Alvimopan 12 mg 06/13/21 21:00 06/19/21 08:35 Alvimopan 12 Mg Capsule PO 06/20/21 21:01 12 mg Q12HR ALAINA Administration Enoxaparin Sodium 40 mg 06/13/21 09:00 06/19/21 08:35 Enoxaparin 40 Mg/0.4 Ml Syringe SUB-Q 40 mg DAILY ALAINA Administration Hydralazine HCl 10 mg 06/11/21 21:42 06/12/21 04:28 Hydralazine Hcl 20 Mg/Ml Vial IV PUSH 10 mg Q8H PRN Administration Blood Pressure - High Potassium Chloride/Dextrose/Sod Cl 1,000 mls @ 50 mls/hr 06/19/21 07:40 06/19/21 08:26 Kcl 20 Meq/D5/0.9% Sod Chl IV CONT 50 mls/hr .Q20H ALAINA Administration Miconazole Nitrate 1 applic 06/17/21 09:00 06/19/21 08:36 Miconazole 2% Antifungal Ointment 56 Gm TOPICAL 1 applic Q12HR ALAINA Administration Morphine Sulfate 2 mg 06/12/21 21:57 06/16/21 20:06 Morphine Sulfate (*Crx) 2 Mg/Ml Inj IV PUSH 2 mg Q2H PRN Administration Pain Rated 4-6 Naloxone HCl 0.1 mg 06/12/21 21:57 Naloxone Hcl 0.4 Mg/Ml Vial IV PUSH Q2M PRN Opiate Reversal Ondansetron HCl 4 mg 06/11/21 22:39 06/19/21 08:31 Ondansetron Inj 4 Mg/2 Ml Vial IV PUSH 4 mg Q4H PRN Administration Nausea And Vomiting Pantoprazole Sodium 40 mg 06/13/21 09:00 06/19/21 08:35 Pantoprazole 40 Mg Tablet PO 40 mg QAM ALAINA Administration Radiology Results: ITS Impressions Enema w/Water Soluble 06/12/21 13:08 IMPRESSION: Colonic intussusception, unsuccessful reduction attempt. ADDENDUM: 06/12/21 [id number] I discussed these results with Fela Bustos MD. Patient has also developed air-filled small bowel consistent with obstruction (terminal ileum also in the intussusception). Chest X-Ray 06/15/21 07:54 IMPRESSION: 1. Left basilar airspace opacities, consistent with atelectasis versus pneumonia. Abdomen X-Ray 06/18/21 10:08 IMPRESSION: Normalization of bowel gas pattern. Venous Doppler Study 06/18/21 15:48 IMPRESSION: 1. No deep venous thrombosis. 2. Moderate-sized right-sided Angeles's cyst. Labs Labs: Laboratory Results - last 24 hr 06/19/21 06/19/21 05:38 05:38 WBC 10.1 H RBC 4.00 L Hgb 10.1 L Hct 34.1 L MCV 85.3 MCH 25.3 L MCHC 29.6 L RDW 17.3 H Plt Count 125 L MPV 11.5 H Immature Gran
--- NOTE | 2021-06-19 10:39 | PM.IMPN ---
Progress Note: A&P Assessment and Plan (1) Intussusception: Code(s): K56.1 - Intussusception Status: Acute Assessment and Plan: Patient presents with complaints of abdominal pain and loss of appetite and no bowel movement. CT on admission showed intussusception. Initial treatment attempt was made with reduction via water enema and able to push the intussusception back to the splenic flexure but not beyond that. Intussusception was then surgically reduced in the OR on the evening of 06/12 with extended right hemicolectomy, and pathology specimen was sent to the lab. NGT out. Clear liquids started but not eating much. +BMs. Advance diet. Zofran available as needed. Continue postop care, including incentive spirometry, DVT prophylaxis (enoxaparin), and monitoring for infection. Continue PT/OT. Surgery on board and appreciate their input. (2) Colon cancer: Code(s): C18.9 - Malignant neoplasm of colon, unspecified Status: Acute Assessment and Plan: Path has returned showing moderately differentiated colonic adenocarcinoma with a 4.0 x 3.4 CM mass in the cecum invading through into but not through the muscularis propria. LN negative (0). Spoke with surgery who has notified patient of this diagnosis. May not need further treatment ut will arrange for outpatient oncology follow-up (3) ROBERTH (acute kidney injury): Code(s): N17.9 - Acute kidney failure, unspecified Status: Acute Assessment and Plan: Patient with CKD stage 3 with baseline Cr around 1.3-1.4. Cr 1.6 on admission. With IV fluids, Cr has trended to 0.9. Suspect patient is fluid overloaded resulting in the the lower than expected Cr value and the clinical findings. Patient also with persistent non-anion gap metabolic acidosis probably related to ketosis or ROBERTH/CKD or NG tube or diarrhea or mixed. Lactic was normal on admission. Patietn does not want feeding tube. Bicarb worse so will add oral bicarb. Change IV fluids (4) Chronic kidney disease (CKD): Qualifiers: Chronic kidney disease stage: stage 3 (moderate) Chronic kidney disease stage 3 subtype: stage 3b (GFR 30-44) Qualified Code(s): N18.32 - Chronic kidney disease, stage 3b Code(s): N18.9 - Chronic kidney disease, unspecified Status: Acute Assessment and Plan: As above (5) Enlarged prostate: Code(s): N40.0 - Benign prostatic hyperplasia without lower urinary tract symptoms Status: Chronic Assessment and Plan: Stable. No evidence of urine retention on exam. Resume Flomax. Monitor renal function. (6) HTN (hypertension), malignant: Code(s): I10 - Essential (primary) hypertension Status: Chronic Assessment and Plan: Patient's blood pressure was reviewed on 06/19 Blood pressure remains well controlled. Continue to monitor. Will continue to hold amlodipine for now. (7) DVT prophylaxis: Code(s): Z29.9 - Encounter for prophylactic measures, unspecified Status: Acute Assessment and Plan: Lovenox Subjective Date/time seen: 06/19/21 10:39 Interval history: 80yo male with hx of HTN, CVA and BPH who presents with abdominal pain and found to have colonic intussusception. Slept okay. Having nausea and vomiting. Diarrhea better. Eating poorly. Up to the chair yesterday. Exam Narrative: AF 97.7 130/79 86 20 97% ra Gen - NARD Chest - decreased BS bibasilar R>L, nml RR CV - RRR S1/S2 Abd - Soft, NT, ND, vertical midline lana in place with old blood noted Ext - bilateral pedal edema that is improved Neuro - Alert and more engaged Psych - Nml mood but odd affect Skin - Warm and dry Objective Data Vital Signs Vital Signs: Vital Signs - 24 hr 06/18/21 14:30 06/18/21 20:46 06/19/21 00:00 Temperature 97.9 F 97.7 F 97.5 F L Pulse Rate 92 87 82 Respiratory Rate 20 22 H 18 Blood Pressure 123/64 123/77 120/77 Pulse Oximetry 97 94 96 09/0
--- NOTE | 2021-06-19 10:45 | PCOTNOTE ---
Attempted to see patient twice this am, however patient declined both times.
[2021-06-19] MEDS: SODIUM BICARBONATE TAB 650 MG TABLET PO ×2 (13:02→16:52)
--- NOTE | 2021-06-19 14:34 | PCDIET ---
Nutrition Follow-Up Complete: Nutrition Diagnosis: Inadequate oral intake related to intussusception as evidenced by NPO status with reported weight loss and poor intake prior to admission. Nutrition Goal: Patient to meet estimated nutritional needs. Goal in progress. Patient has advanced to level 6 soft and bite size diet with Ensure Compact TID, but is eating very little (25% of meals and below). Denies nausea or abdominal pain, but does have decreased appetite. Reports not willing to try Ensure or additional supplements offered. Encouraged patient to try small, frequent meals to maximize intake. If medically appropriate, would consider appetite stimulant. If poor appetite persists, will need to discuss supplemental nutrition support. Last recorded weight is 68.4 kg which is up from last review. Bowel Motility: BM x 2 on 06/18/21. Labs Reviewed: WBC (10.1), RBC (4.00), Hgb (10.1), Hct (34.1), K (3.1), Na (135), Alb (1.9), [place] Ca (8.78) Meds Noted: D5NS with 20mEq KCl at 50mL/hr, Protonix, Sodium Bicarbonate Tab, KCl Additional Notes: Friction area to scrotal skin fold. Surgical incision to abdomen. Will continue to monitor with same goal. Nutrition Monitoring and Evaluation: Follow up every 5 days.
[2021-06-19 16:00] VITALS: BP 147/84; PULSE 90; RESP 16; TEMP 36.9; O2SAT 96
[2021-06-19 20:49] VITALS: BP 143/74; PULSE 91; RESP 20; TEMP 36.1; O2SAT 95
[2021-06-20] VITALS: BP 136/77; PULSE 94; RESP 18; TEMP 36; O2SAT 94
[2021-06-20] MEDS: ONDANSETRON INJ 4 MG/2 ML VIAL IV PUSH ×2 (03:09→09:38)
[2021-06-20 04:59] VITALS: BP 123/70; PULSE 99; RESP 22; TEMP 36.4; O2SAT 93
[2021-06-20 07:05] LABS: Basophils Percent Auto 0.2 % (0.2-1.2); Eosinophils Percent Auto 0.2 % (0-4.4); Hematocrit 37.2 % (42.0-52.0); Hemoglobin 11.1 g/dL (14.0-18.0); Immature Granulocyte Absolute 0.19 K/mm3 (0.00-0.031); Immature Granulocyte Percent A 1.6 % (0-0.5); Lymphocytes Absolute Auto 0.37 K/mm3 (0.9-3.2); Mean Corpuscular HGB Conc 29.8 g/dl (32-36); Mean Corpuscular Hemoglobin 24.9 pg (26-34); Mean Corpuscular Volume 83.6 fl (80-100); Mean Platelet Volume 10.8 fl (7.4-10.4); Monocytes Absolute Auto 0.5 K/mm3 (0.1-0.6); Monocytes Percent Auto 4.3 % (2.6-8.5); Neutrophils Absolute Auto 11.1 K/mm3 (1.3-6.7); Neutrophils Percent Auto 90.7 % (45.5-73.1); Platelet Count Result 130 k/mm3 (150-375); Red Blood Count 4.45 M/mm3 (4.6-6.20); Red Cell Distribution Width 17.5 % (11.5-14.5); White Blood Count 12.3 K/mm3 (4.5-10.0)
[2021-06-20 07:19] LABS: Alanine Aminotransferase 15 U/L (4-50); Albumin Level 1.9 g/dL (3.5-5.1); Alkaline Phosphatase 45 U/L (38-126); Anion Gap 4 mmol/L (8-16); Aspartate Amino Transferase 22 U/L (17-59); Bilirubin,Total 1.4 mg/dL (0.2-1.3); Blood Urea Nitrogen 18 mg/dL (9-20); Calcium 7.1 mg/dL (8.4-10.2); Carbon Dioxide 18 mmol/L (22-30); Chloride 114 mmol/L (98-107); Estimated CRCL calculation 48 ml/min; Estimated Glomerular Filt Rate > 60; Glucose 130 mg/dL (65-110); Magnesium 1.9 mg/dL (1.6-2.3); Potassium 3.6 mmol/L (3.4-5.0); Sodium 136 mmol/L (137-145)
[2021-06-20 07:48] LABS: Glucose Point of Care 131 mg/dl (65-105)
[2021-06-20 08:00] VITALS: BP 129/73; PULSE 90; RESP 22; TEMP 36.8; O2SAT 95
[2021-06-20] MEDS: ENOXAPARIN 40 MG/0.4 ML SYRINGE SUB-Q (09:10)
[2021-06-20] MEDS: TAMSULOSIN HCL 0.4 MG CAPSULE PO (09:10)
[2021-06-20] MEDS: SODIUM BICARBONATE TAB 650 MG TABLET PO (09:10)
[2021-06-20] MEDS: PANTOPRAZOLE 40 MG TABLET PO (09:10)
--- NOTE | 2021-06-20 12:12 | PM.IMPN ---
Progress Note: A&P Assessment and Plan (1) Intussusception: Code(s): K56.1 - Intussusception Status: Acute Assessment and Plan: Patient presents with complaints of abdominal pain and loss of appetite and no bowel movement. CT on admission showed intussusception. Initial treatment attempt was made with reduction via water enema and able to push the intussusception back to the splenic flexure but not beyond that. Intussusception was then surgically reduced in the OR on the evening of 06/12 with extended right hemicolectomy, and pathology specimen was sent to the lab. NGT out. Clear liquids started but not eating much. +BMs. Advance diet. Zofran available as needed. Continue postop care, including incentive spirometry, DVT prophylaxis (enoxaparin), and monitoring for infection. Continue PT/OT. Surgery on board and appreciate their input. He did develop diarrhea for the past 2 days. Will send for C diff. his appetite has been poor. Will initiate mirtazapine. He reports his appetite has always been quite low. (2) Colon cancer: Code(s): C18.9 - Malignant neoplasm of colon, unspecified Status: Acute Assessment and Plan: Path has returned showing moderately differentiated colonic adenocarcinoma with a 4.0 x 3.4 CM mass in the cecum invading through into but not through the muscularis propria. LN negative (). Spoke with surgery who has notified patient of this diagnosis. May not need further treatment but will arrange for outpatient oncology follow-up (3) ROBERTH (acute kidney injury): Code(s): N17.9 - Acute kidney failure, unspecified Status: Acute Assessment and Plan: Cr 1.6 on admission. With IV fluids, Cr has trended to 0.9-1.1. Monitor. (4) Chronic kidney disease (CKD): Qualifiers: Chronic kidney disease stage: stage 3 (moderate) Chronic kidney disease stage 3 subtype: stage 3b (GFR 30-44) Qualified Code(s): N18.32 - Chronic kidney disease, stage 3b Code(s): N18.9 - Chronic kidney disease, unspecified Status: Acute Assessment and Plan: CKD stage 3. Baseline creatinine 1.1-1.6. Possibly in the setting of longstanding hypertension. (5) Enlarged prostate: Code(s): N40.0 - Benign prostatic hyperplasia without lower urinary tract symptoms Status: Chronic Assessment and Plan: Stable. No evidence of urine retention on exam. Resume Flomax. Monitor renal function. (6) HTN (hypertension), malignant: Code(s): I10 - Essential (primary) hypertension Status: Chronic Assessment and Plan: Blood pressure remains well controlled. Continue to monitor. Will continue to hold amlodipine for now. (7) DVT prophylaxis: Code(s): Z29.9 - Encounter for prophylactic measures, unspecified Status: Acute Assessment and Plan: Lovenox Subjective Date/time seen: 06/20/21 12:12 Remains weak. Oral intake is poor. Had 1 bowel movement yesterday. Passing gas. Hemodynamically stable. Afebrile. Review of Systems Review of Systems: All systems reviewed & are unremarkable except as noted in HPI and below Exam Narrative: Gen: Alert, NAD Abd: Soft, NT, ND, incision site is clean and dry Heart: RRR Lungs: CTAB Ext: No lower extremity edema Objective Data Vital Signs Vital Signs: Vital Signs - 24 hr 06/19/21 16:00 06/19/21 20:49 06/20/21 00:00 Temperature 98.5 F 96.9 F L 96.8 F L Pulse Rate 90 91 94 Respiratory Rate 16 20 18 Blood Pressure 147/84 H 143/74 H 136/77 Pulse Oximetry 96 95 94 06/20/21 04:59 06/20/21 08:00 Temperature 97.6 F 98.2 F Pulse Rate 99 90 Respiratory Rate 22 H 22 H Blood Pressure 123/70 129/73 Pulse Oximetry 93 95 Intake/Output Intake/Output: Intake & Output 06/17/21 06/18/21 06/19/21 06/20/21 23:59 23:59 23:59 23:59 Intake Total 2320 1450 2405 510 Output Total 125 Balance 2320 1450 2280 510 Meds/Results Medications:
[2021-06-20 13:05] LABS: Fractional Inspired Oxygen 21 %; PO2 VBG 43.6 mmHg (35.0-45.0)
[2021-06-20 13:08] LABS: pH VBG 7.466 (7.300-7.400)
[2021-06-20 13:09] LABS: Device ROOM AIR; PCO2 VBG 28.4 mmHg (42.0-48.0)
[2021-06-20] MEDS: KCL 20 MEQ/D5/0.9% SOD CHL 1,000 ML 50 ML IV CONT (14:45)
[2021-06-20 16:00] VITALS: PULSE 90; RESP 22; TEMP 37; O2SAT 94
[2021-06-20 20:52] VITALS: BP 119/79; PULSE 93; RESP 18; TEMP 36; O2SAT 96
[2021-06-20] MEDS: MIRTAZAPINE 15 MG TABLET PO (20:58)
[2021-06-21] VITALS: BP 125/70; PULSE 91; RESP 20; TEMP 36.4; O2SAT 96
[2021-06-21 05:33] VITALS: BP 133/76; PULSE 99; RESP 22; TEMP 36.2; O2SAT 94
[2021-06-21 05:57] LABS: Basophils Percent Auto 0.4 % (0.2-1.2); Eosinophils Absolute Auto 0.2 K/mm3 (0-0.3); Eosinophils Percent Auto 1.8 % (0-4.4); Hematocrit 34.9 % (42.0-52.0); Hemoglobin 10.5 g/dL (14.0-18.0); Immature Granulocyte Absolute 0.11 K/mm3 (0.00-0.031); Immature Granulocyte Percent A 1.3 % (0-0.5); Lymphocytes Absolute Auto 0.49 K/mm3 (0.9-3.2); Lymphocytes Percent Auto 5.9 % (18.3-44.2); Mean Corpuscular HGB Conc 30.1 g/dl (32-36); Mean Corpuscular Hemoglobin 25.2 pg (26-34); Mean Corpuscular Volume 83.7 fl (80-100); Mean Platelet Volume 10.9 fl (7.4-10.4); Monocytes Absolute Auto 0.3 K/mm3 (0.1-0.6); Neutrophils Absolute Auto 7.2 K/mm3 (1.3-6.7); Neutrophils Percent Auto 86.6 % (45.5-73.1); Platelet Count Result 149 k/mm3 (150-375); Red Blood Count 4.17 M/mm3 (4.6-6.20); Red Cell Distribution Width 17.4 % (11.5-14.5); White Blood Count 8.3 K/mm3 (4.5-10.0)
[2021-06-21 06:11] LABS: Alanine Aminotransferase 16 U/L (4-50); Albumin Level 1.8 g/dL (3.5-5.1); Alkaline Phosphatase 36 U/L (38-126); Anion Gap 5 mmol/L (8-16); Aspartate Amino Transferase 27 U/L (17-59); Bilirubin,Total 1.2 mg/dL (0.2-1.3); Blood Urea Nitrogen 17 mg/dL (9-20); Calcium 6.9 mg/dL (8.4-10.2); Carbon Dioxide 20 mmol/L (22-30); Chloride 112 mmol/L (98-107); Estimated CRCL calculation 48 ml/min; Estimated Glomerular Filt Rate > 60; Glucose 99 mg/dL (65-110); Potassium 3.6 mmol/L (3.4-5.0); Sodium 137 mmol/L (137-145)
[2021-06-21 08:00] VITALS: BP 128/74; PULSE 90; RESP 20; TEMP 36.4; O2SAT 93
[2021-06-21] MEDS: TAMSULOSIN HCL 0.4 MG CAPSULE PO (09:35)
[2021-06-21] MEDS: ENOXAPARIN 40 MG/0.4 ML SYRINGE SUB-Q (09:35)
[2021-06-21] MEDS: PANTOPRAZOLE 40 MG TABLET PO (09:35)
[2021-06-21 09:37] VITALS: RESP 20; O2SAT 93
--- NOTE | 2021-06-21 09:50 | PCPTNOTE ---
Patient refused treatment this session. Patient educated in the importance of participating in PT to improve mobility and strength. Patient continued to refuse. PT will continue to follow per plan of care.
--- NOTE | 2021-06-21 10:03 | PM.IMPN ---
Progress Note: A&P Assessment and Plan (1) Intussusception: Code(s): K56.1 - Intussusception Status: Acute Assessment and Plan: Patient presents with complaints of abdominal pain and loss of appetite and no bowel movement. CT on admission showed intussusception. Initial treatment attempt was made with reduction via water enema and able to push the intussusception back to the splenic flexure but not beyond that. Intussusception was then surgically reduced in the OR on the evening of 06/12 with extended right hemicolectomy, and pathology specimen was sent to the lab. NGT out. Clear liquids started but not eating much. +BMs. Advance diet. Zofran available as needed. Continue postop care, including incentive spirometry, DVT prophylaxis (enoxaparin), and monitoring for infection. Continue PT/OT. Surgery on board and appreciate their input. He did develop diarrhea for the past few days. Will send for C diff. If negative, initiate Imodium. His appetite has been poor. Initiated mirtazapine. He reports his appetite has always been quite low. (2) Colon cancer: Code(s): C18.9 - Malignant neoplasm of colon, unspecified Status: Acute Assessment and Plan: Path has returned showing moderately differentiated colonic adenocarcinoma with a 4.0 x 3.4 CM mass in the cecum invading through into but not through the muscularis propria. LN negative (0). Spoke with surgery who has notified patient of this diagnosis. May not need further treatment but will arrange for outpatient oncology follow-up (3) ROBERTH (acute kidney injury): Code(s): N17.9 - Acute kidney failure, unspecified Status: Acute Assessment and Plan: Cr 1.6 on admission. With IV fluids, Cr has trended to 0.9-1.1. Monitor. (4) Chronic kidney disease (CKD): Qualifiers: Chronic kidney disease stage: stage 3 (moderate) Chronic kidney disease stage 3 subtype: stage 3b (GFR 30-44) Qualified Code(s): N18.32 - Chronic kidney disease, stage 3b Code(s): N18.9 - Chronic kidney disease, unspecified Status: Acute Assessment and Plan: CKD stage 3. Baseline creatinine 1.1-1.6. Possibly in the setting of longstanding hypertension. (5) Enlarged prostate: Code(s): N40.0 - Benign prostatic hyperplasia without lower urinary tract symptoms Status: Chronic Assessment and Plan: Stable. No evidence of urine retention on exam. Resume Flomax. Monitor renal function. (6) HTN (hypertension), malignant: Code(s): I10 - Essential (primary) hypertension Status: Chronic Assessment and Plan: Blood pressure remains well controlled. Continue to monitor. Will continue to hold amlodipine for now. (7) DVT prophylaxis: Code(s): Z29.9 - Encounter for prophylactic measures, unspecified Status: Acute Assessment and Plan: Lovenox Subjective Date/time seen: 06/21/21 10:03 Unfortunately his appetite remains very poor. Continues to have diarrhea. C diff is pending. Yesterday to protect his skin, we attempted a rectal tube. He did not tolerate that and the tube was removed. Hemodynamically stable. Afebrile. Review of Systems Review of Systems: All systems reviewed & are unremarkable except as noted in HPI and below Exam Narrative: Gen: Alert, NAD Abd: Soft, NT, ND, incision site is clean and dry Heart: RRR Lungs: CTAB Ext: No lower extremity edema Objective Data Vital Signs Vital Signs: Vital Signs - 24 hr 06/20/21 16:00 06/20/21 20:52 06/21/21 00:00 Temperature 98.6 F 96.8 F L 97.6 F Pulse Rate 90 93 91 Respiratory Rate 22 H 18 20 Blood Pressure 119/79 125/70 Pulse Oximetry 94 96 96 06/21/21 05:33 06/21/21 08:00 Temperature 97.2 F L 97.5 F L Pulse Rate 99 90 Respiratory Rate 22 H 20 Blood Pressure 133/76 128/74 Pulse Oximetry 94 93 Intake/Output Intake/Output: Intake & Output 06/18/21 06/19/21 06/20/21 09
--- NOTE | 2021-06-21 12:09 | PM.DS ---
DS: Admitting Diagnosis Admitting Diagnosis Abdominal pain DS: Discharge Diagnosis Discharge Diagnosis (1) ROBERTH (acute kidney injury): Code(s): N17.9 - Acute kidney failure, unspecified Status: Acute (2) Colon cancer: Code(s): C18.9 - Malignant neoplasm of colon, unspecified Status: Acute (3) Left anterior fascicular block: Code(s): I44.4 - Left anterior fascicular block Status: Acute (4) Right bundle branch block (RBBB) determined by electrocardiography: Code(s): I45.10 - Unspecified right bundle-branch block Status: Acute (5) HTN (hypertension), malignant: Code(s): I10 - Essential (primary) hypertension Status: Chronic (6) Intussusception: Code(s): K56.1 - Intussusception Status: Acute (7) Chronic kidney disease (CKD): Qualifiers: Chronic kidney disease stage: stage 3 (moderate) Chronic kidney disease stage 3 subtype: stage 3b (GFR 30-44) Qualified Code(s): N18.32 - Chronic kidney disease, stage 3b Code(s): N18.9 - Chronic kidney disease, unspecified Status: Acute DS: Summary Hospital Course Hospital Course: This is an 80-year-old gentleman with past medical history of hypertension, BPH, in CVA, who presented to the emergency department on 06/11 with diffuse abdominal pain of [address] scan of the abdomen showed intussusception.Initial treatment attempt was made with reduction via water enema and able to push the intussusception back to the splenic flexure but not beyond that. Intussusception was then surgically reduced in the OR on the evening of 06/12 with extended right hemicolectomy. The surgery went well. In the aftermath he had issues with decreased oral intake and recurrent nausea and vomiting along with ileus. This ultimately resolved and his NG tube was removed. He continued to have somewhat low oral intake. He developed some diarrhea and C diff was checked, pending at the time of discharge. On the day of discharge his diarrhea was noted to be improving. On admission he was also noted to have acute kidney injury with a creatinine 1.6, this improved with hydration and creatinine was 1 on the day of discharge. From a hypertension perspective, his blood pressure was well controlled during the hospitalization, and he did not need his home amlodipine which was on hold. Pathology from the right hemicolectomy showed moderately differentiated colonic adenocarcinoma with a 4 x 3.4 cm mass in the cecum invading through but not through the muscularis propria. Lymph nodes were negative. Oncology follow-up will need to be arranged in the outpatient setting. His oral intake was poor following his surgery and continue to be encouraged to increase intake. He refused nutritional supplements. Recommend continued encouragement of increased oral intake. Mirtazapine was initiated to help stimulate appetite. Time Spent with Patient Time attestation: Total time spent providing and/or coordinating discharge services: 34 min Exam Narrative: Gen: Alert, NAD Abd: Soft, NT, ND, incision is clean and dry Heart: RRR Lungs: CTAB Ext: No lower extremity edema DS: Data Data Completed and Pending Completed studies during hospitalization: Pending at discharge 06/12/21 19:37 Surgical [PTH] Routine Labs on day of discharge: Labs from last 24 hours 06/21/21 06/21/21 06/20/21 05:47 05:47 12:56 WBC 8.3 RBC 4.17 L Hgb 10.5 L Hct 34.9 L MCV 83.7 MCH 25.2 L MCHC 30.1 L RDW 17.4 H Plt Count 149 L MPV 10.9 H Immature Gran % (Auto) 1.3 H Neut % (Auto) 86.6 H Lymph % (Auto) 5.9 L [place] % (Auto) 4.0 Eos % (Auto) 1.8 Baso % (Auto) 0.4 Lymph # (Auto) 0.49 L [place] # (Auto) 0.3 Eos # (Auto) 0.2 Baso # (Auto) 0.0 Abs Immat Gran (auto) 0.11 H Absolute Neuts (auto) 7.2 H Absolute Nucleated RBC 0.0 Nucleated RBC % 0.0 VBG pH 7.466 H* VBG pCO2
[2021-06-21 16:00] VITALS: BP 128/71; PULSE 94; RESP 20; TEMP 36.2; O2SAT 98
== END 2021-06-21 16:45 | disposition swing bed (61) | DRG 330 ==
LOC: ANHED 18:35 → ANHIMU 19:47 → ANH2MED 06-21 12:18 → ANHIMU 06-24 10:47
PROVIDERS: Internal Medicine; Nurse Practitioner; Physician Assistant; Surgery; Admitting Provider Internal Medicine; Emergency Provider Emergency Medicine; PCP Family Medicine; Visit Provider Internal Medicine Nephrology
PROC: 0DSB0ZZ Reposition Ileum, Open Approach (ICD-10-PCS; CPT 49000; principal; 2021-06-12 18:00)
DX: K56.1 Intussusception (principal); N17.9 Acute kidney failure, unspecified; C18.0 Malignant neoplasm of cecum; E87.2 Acidosis; K91.89 Other postprocedural complications and disorders of digestive system; R19.7 Diarrhea, unspecified; K56.7 Ileus, unspecified; Y83.8 Other surgical procedures as the cause of abnormal reaction of the patient, or of later complication, without mention of misadventure at the time of the procedure; Y92.230 Patient room in hospital as the place of occurrence of the external cause; J44.9 Chronic obstructive pulmonary disease, unspecified; Z86.73 Personal history of transient ischemic attack (TIA), and cerebral infarction without residual deficits; N40.0 Benign prostatic hyperplasia without lower urinary tract symptoms; Z66 Do not resuscitate; D64.9 Anemia, unspecified; E86.0 Dehydration; I12.9 Hypertensive chronic kidney disease with stage 1 through stage 4 chronic kidney disease, or unspecified chronic kidney disease; N18.32 Chronic kidney disease, stage 3b; I45.10 Unspecified right bundle-branch block; I44.4 Left anterior fascicular block
CPT/HCPCS: 36415; 71045; 71046; 74018; 74270; 80048; 80053; 80069; 80076; 81001; 82378; 82803; 82948; 83605; 83690; 83735; 84100; 84443; 84484; 85025; 85610; 85730; 87324; 88309; 93005; 93970; 96361; 96374; 96375; 97110; 97116; 97162; 97165; 97530; 97535; 99285; A9270; G0378; J0330; J0360; J0690; J1650; J1741; J1940; J2270; J2370; J2405; J2543; J2710; J3010; J3480; J7030; J7120

== ENCOUNTER 2021-06-21 18:00 | Inpatient (IN) | payer MEDICARE, SELFPAY ==
[2021-06-21 18:00] VITALS: BP 135/91; PULSE 94; RESP 16; TEMP 36.6; O2SAT 94; BMI 20.7
--- NOTE | 2021-06-21 18:10 | PC.NURSE ---
17:30-Patient arrived per [facility] from [facility]. Patient transferred by EMS from stretcher to bed. Patient oriented to room and call light. Patient declines supper tray.
--- NOTE | 2021-06-21 18:47 | PM.IMHP ---
H&P: HPI History of Present Illness Date/Time: 06/21/21 18:47 Chief Complaint: Weakness Narrative: 80-year-old man with a history of BPH, CVA, hypertension comes to the hospital today as a swing bed for rehabilitation after having had a right hemicolectomy on 06/12 for intussusception. Water enema for reduction was not successful. His recovery was complicated by ileus and acute kidney injury. He was found to have a 4 x 3.4 cm adenocarcinoma in the cecum. He has had diarrhea and poor intake. C diff antigen and C diff toxin A and B were negative today. Review of Systems Constitutional: Constitutional: Denies chills, Denies fatigue, Denies fever(s), Reports poor appetite and Reports weakness Eyes: Eyes: Denies change in vision and Denies eye pain ENT: Denies nasal congestion, Denies nasal discharge and Denies sore throat Cardiovascular: Cardiovascular: Denies chest pain, Denies rapid heart rate and Denies edema Respiratory: Respiratory: Denies cough and Denies dyspnea Gastrointestinal: Gastrointestinal: Denies abdominal pain, Denies melena, Denies hematochezia, Reports diarrhea, Denies nausea and Denies vomiting Genitourinary: Genitourinary: Denies dysuria and Denies urinary frequency Musculoskeletal: Musculoskeletal: Denies arthralgias, Denies joint swelling and Denies numbness Integumentary/Breasts: Skin/Breast: Denies new lesions, Denies rash, Denies skin pain and Reports wounds Neurologic: Denies vertigo, Denies dizziness, Denies syncope and Denies headache(s) Hematologic/Lymphatic: Hematologic/Lymphatic: Denies easy bleeding and Denies easy bruising Allergic/Immunologic: Allergic/Immunologic: Denies urticaria and Denies lip swelling [facility] Past Medical History Medical History Constipated COPD (chronic obstructive pulmonary disease) CVA (cerebral vascular accident) Enlarged prostate History of hypertension HTN (hypertension), malignant Lower abdominal pain Surgical History Surgical History History of tonsillectomy Family History Family History Father Lung cancer Mother Lymphoma Social History Social History Social History: the patient is and has no children. 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 his friend Darell Marks is a durable [employer] transactions attorney for healthcare and the patient desires to be a DNR. The patient is a lifelong nonsmoker. He does not use any illicit drugs or alcohol. Smoking status: Never smoker Second hand tobacco smoke exposure: No Alcohol intake: never Substance use: never Substance use type: does not use Gender identity (if verbalized by the patient): Male Sexual Orientation (if Verbalized by the Patient): Straight or Heterosexual Spiritual care concerns: No Meds Home Medications and Allergies Home Medications Medication Instructions Recorded Confirmed Type tamsulosin 0.4 mg PO DAILY 01/23/20 06/21/21 History miconazole nitrate [Aloe Porter 1 applic TOPICAL Q12HR #15 g 06/21/21 06/21/21 Rx Antifungal (micon)] mirtazapine [Remeron] 15 mg PO HS #30 tablet 06/21/21 06/21/21 Rx Allergies Allergy/AdvReac Type Severity Reaction Status Date / Time No Known Allergies Allergy Verified 06/11/21 21:48 Vital Signs Vital Signs - 24 hr 06/21/21 18:00 Temperature 36.6 C Pulse Rate 94 Respiratory Rate 16 Blood Pressure 135/91 H Pulse Oximetry 94 Exam Const: General: cooperative, healthy appearing, well developed, alert, awake and Physically active; No acute distress Nutritional Appearance: average body habitus Orientation/consciousness: oriented to person, oriented to place and oriented to time Limitations: no limitations HENMT: Head: normocephalic and atraumatic Mouth: Yes Normal oral and palatal mucosa present and
[2021-06-21] MEDS: MIRTAZAPINE 15 MG TABLET PO (21:05)
[2021-06-21] MEDS: MICONAZOLE NITRATE 2% CREAM 30 GM TUBE 1 APPLIC (22:01)
[2021-06-21 23:12] VITALS: PULSE 62; RESP 20; TEMP 36.5; O2SAT 93
--- NOTE | 2021-06-21 23:33 | PC.NURSE ---
Patient has had 2 large diarrhea stools, periarea is reddened and tender to touch during pericare, cream applied as ordered.
[2021-06-22 08:00] VITALS: BP 124/77; PULSE 102; RESP 18; TEMP 36.8; O2SAT 97
[2021-06-22] MEDS: TAMSULOSIN HCL 0.4 MG CAPSULE PO (08:46)
--- NOTE | 2021-06-22 11:40 | WPDPN ---
Progress Note: A&P Assessment and Plan (1) Diarrhea: Code(s): R19.7 - Diarrhea, unspecified Status: Acute Assessment and Plan: C. difficile negative Possibly secondary to colon cancer versus extended right hemicolectomy surgery Place fecal to to prevent further coccyx and buttock macerated and excoriated Imodium ordered (2) Colon cancer: Code(s): C18.9 - Malignant neoplasm of colon, unspecified Status: Acute Assessment and Plan: CT indicates cecal mass. Patient will need to follow-up with an oncologist on discharge (3) DVT prophylaxis: Code(s): Z29.9 - Encounter for prophylactic measures, unspecified Status: Acute Assessment and Plan: Lovenox (4) Enlarged prostate: Code(s): N40.0 - Benign prostatic hyperplasia without lower urinary tract symptoms Status: Chronic Assessment and Plan: Continue Flomax (5) Intussusception: Code(s): K56.1 - Intussusception Status: Acute Assessment and Plan: Intussusception was then surgically reduced in the OR on the evening of 06/12 with extended right hemicolectomy, and pathology specimen was sent to the lab. 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 Cr 1.6 on admission to [facility] Currently within normal limits Avoid nephrotoxic agent Renal dose medication if needed (7) HTN (hypertension), malignant: Code(s): I10 - Essential (primary) hypertension Status: Chronic Assessment and Plan: Stable Will start medication if needed Vital signs as ordered (8) Weakness: Code(s): R53.1 - Weakness Status: Acute Assessment and Plan: ? Exhibit tolerance during physical activity as evidenced by a normal fluctuation of vital signs during physical activity. ? Patient will be ability to perform required activities of daily living. ? Provide appropriate nutrition for healing and strength. ? Use appropriate to prevent falls. ? Continue physical therapy/occupational therapy. Megace added to increase appetite plus (9) Skin breakdown: Code(s): R23.8 - Other skin changes Status: Acute Assessment and Plan: Secondary to diarrhea Fecal to place Wound care orders placed (10) Tongue thrust: Code(s): K14.8 - Other diseases of tongue Status: Acute Assessment and Plan: Nystatin added Subjective Date/time seen: 06/22/21 11:40 this is a 80-year-old male who presented to [place] emergency department on 06/11/2021 intermittent abdominal pain x1 week. Imaging indicated intussusception at that time surgery was consulted initial treatment attempt was made with reduction via water enema and able to push the intussusception back to the splenic flexure not successful, and emergency surgery was completed on 06/12/2021 a Exploratory laparotomy, reduction of long segment intussusception, extended right hemicolectomy with mobilization of splenic flexure was completed. A biopsy was collected, the right hemicolectomy showed moderately differentiated colonic adenocarcinoma with a 4 x 3.4 cm mass in the cecum invading through but not through the muscularis propria. Lymph nodes were negative. Oncology follow-up will need to be arranged in the outpatient setting. Patient admitted in swing bed for rehabilitation due to decreased balance decreased mobility in severe limited function endurant and/or mobility. Patient does not have any c
[2021-06-22] MEDS: NYSTATIN 100,000 UNITS/ML SUSP 5 ML ORAL.SUSP PO ×3 (12:51→21:23)
[2021-06-22] MEDS: MEGESTROL ACETATE (*CHEMO) 40 MG TABLET PO ×3 (12:51→21:22)
[2021-06-22 15:56] VITALS: BP 142/85; PULSE 97; RESP 18; TEMP 36.8; O2SAT 95
--- NOTE | 2021-06-22 19:00 | PC.NURSE ---
Bedside shift report completed. Patient resting comfortably in bed. Patient indicated he did not need anything at this time. Report indicated that patient had 3 bouts of diarrhea during morning shift. He has refused the fecal control system ordered for him.
[2021-06-22] MEDS: MIRTAZAPINE 15 MG TABLET PO (21:23)
--- NOTE | 2021-06-22 22:00 | PC.NURSE ---
Patient needed to be changed during medication pass. Shortly after patient was cleaned up, and given night time medication, patient began to hiccup. After about 5 minutes of hiccuping, patient began vomiting. He vomited a large amount of emesis, that was a tannish color, with small amounts of undigested food. The emesis was watery, with some mucous. Patient was again cleaned up, and was given an emesis bag in case he needed it.
[2021-06-23] VITALS: BP 125/73; PULSE 105; RESP 22; TEMP 37.1; O2SAT 95
--- NOTE | 2021-06-23 02:00 | PC.NURSE ---
Completed patient rounding. Patient is sleeping comfortably in bed, without any signs of pain or discomfort.
[2021-06-23 08:00] VITALS: BP 121/72; PULSE 103; RESP 16; TEMP 36.9; O2SAT 93
[2021-06-23] MEDS: ENOXAPARIN 40 MG/0.4 ML SYRINGE SUB-Q (08:31)
[2021-06-23] MEDS: TAMSULOSIN HCL 0.4 MG CAPSULE PO (08:32)
[2021-06-23] MEDS: MEGESTROL ACETATE (*CHEMO) 40 MG TABLET PO ×4 (08:32→20:55)
[2021-06-23] MEDS: TOLNAFTATE 1% POWDER 45 GM BTL 1 APPLIC TOPICAL ×2 (08:41→20:55)
[2021-06-23] MEDS: NYSTATIN 100,000 UNITS/ML SUSP 5 ML ORAL.SUSP PO ×4 (14:20→20:55)
[2021-06-23 16:00] VITALS: BP 131/78; PULSE 63; RESP 16; TEMP 36.2; O2SAT 95
[2021-06-23] MEDS: MIRTAZAPINE 15 MG TABLET PO (20:55)
--- NOTE | 2021-06-23 22:35 | PC.NURSE ---
Patient in bed. T/P Q2H. Incont of stool. Pericare given and medications applied. Using urinal, urine dark orange and concentrated. Refused dinner. Takes sips of water.
--- NOTE | 2021-06-23 23:01 | PC.NURSE ---
Patient refused Rectal tube.
[2021-06-24] VITALS: BP 120/76; PULSE 98; RESP 18; TEMP 37.1; O2SAT 95
--- NOTE | 2021-06-24 07:43 | PCOTNOTE ---
OT attempted to see patient this AM however patient refuses. Per [facility] CONSULTANT, patient will be set up on hospice care and is discharged from skilled OT services. MS
[2021-06-24 08:00] VITALS: PULSE 80; RESP 18; TEMP 36.6; O2SAT 94
--- NOTE | 2021-06-24 08:17 | PCPTNOTE ---
06/24/21 - spoke with [facility] this morning after patient's morning therapy visit. patient is going to DC to hospice care. skilled PT will be DC'd this date due to this change in plan and patients overall participation level with skilled PT. SHERICE
[2021-06-24] MEDS: ENOXAPARIN 40 MG/0.4 ML SYRINGE SUB-Q (08:22)
[2021-06-24] MEDS: TAMSULOSIN HCL 0.4 MG CAPSULE PO (08:23)
[2021-06-24] MEDS: MEGESTROL ACETATE (*CHEMO) 40 MG TABLET PO ×2 (08:23→13:49)
[2021-06-24] MEDS: NYSTATIN 100,000 UNITS/ML SUSP 5 ML ORAL.SUSP PO ×2 (08:23→13:49)
[2021-06-24] MEDS: ACETAMINOPHEN 325 MG TABLET 650 MG PO ×2 (11:47)
--- NOTE | 2021-06-24 12:58 | PM.EVENT ---
Event Note Event Note Event Note: Patient has decided to transition to hospice spoke with his primary care physician he agrees as well. Hospice consult
[2021-06-24] MEDS: TOLNAFTATE 1% POWDER 45 GM BTL 1 APPLIC TOPICAL ×2 (13:41→21:03)
[2021-06-24] MEDS: LOPERAMIDE HCL 2 MG CAPSULE PO ×3 (14:47→21:02)
--- NOTE | 2021-06-24 14:50 | PC.NURSE ---
Nader had #3 loose thick stool noted Immodium 2mg given p.o. He can have 2mg again in 2 hours. Bottom is very excoriated placed onto left side without a diaper on this time. Barrier cream applied after each BM. Nader said he dont think that one immodium will help. Reassured he could get another in 2 hours.
[2021-06-24 16:00] VITALS: BP 125/85; PULSE 98; RESP 16; TEMP 37.1; O2SAT 93
--- NOTE | 2021-06-24 17:26 | PC.NURSE ---
Patient refused 1700 meds due to nausea. Patient with large watery stool. Bed linen change, pericare, medications applied to buttocks. Patient turned and positioned Q2H.
[2021-06-24] MEDS: MIRTAZAPINE 15 MG TABLET PO (21:02)
[2021-06-25] VITALS: BP 107/72; PULSE 90; RESP 20; TEMP 37.2; O2SAT 93
[2021-06-25 07:51] VITALS: BP 102/80; PULSE 102; RESP 20; TEMP 37.2; O2SAT 92
[2021-06-25] MEDS: TAMSULOSIN HCL 0.4 MG CAPSULE PO (09:45)
[2021-06-25] MEDS: ACETAMINOPHEN 325 MG TABLET 650 MG PO ×3 (09:45→20:31)
[2021-06-25] MEDS: MEGESTROL ACETATE (*CHEMO) 40 MG TABLET PO ×4 (09:45→20:32)
[2021-06-25] MEDS: ENOXAPARIN 40 MG/0.4 ML SYRINGE SUB-Q (09:46)
[2021-06-25] MEDS: TOLNAFTATE 1% POWDER 45 GM BTL 1 APPLIC TOPICAL ×2 (12:45→21:03)
[2021-06-25] MEDS: NYSTATIN 100,000 UNITS/ML SUSP 5 ML ORAL.SUSP PO ×4 (12:45→20:32)
[2021-06-25] MEDS: FUROSEMIDE 40 MG TABLET PO (14:30)
[2021-06-25 15:53] VITALS: PULSE 113; RESP 20; O2SAT 87
[2021-06-25 16:00] VITALS: BP 97/68; PULSE 113; RESP 20; TEMP 37.1; O2SAT 87; O2SAT 92
[2021-06-25 16:36] VITALS: PULSE 68; RESP 20; O2SAT 92
[2021-06-25] MEDS: ONDANSETRON HCL ODT 4 MG TABLET (20:31)
[2021-06-25] MEDS: MIRTAZAPINE 15 MG TABLET PO (20:32)
[2021-06-25] MEDS: ONDANSETRON HCL ODT 4 MG TABLET PO (21:04)
[2021-06-26] VITALS: BP 115/76; PULSE 106; RESP 20; TEMP 37.4; O2SAT 88
[2021-06-26 05:30] VITALS: O2SAT 95
[2021-06-26 08:00] VITALS: BP 106/73; PULSE 96; RESP 22; TEMP 37.2; O2SAT 96
[2021-06-26] MEDS: MORPHINE SULFATE ORAL CONC SOL (*CRX) 10 MG/0.5 ML SYRINGE 5 MG PO ×2 (08:11→11:48)
[2021-06-26] MEDS: ACETAMINOPHEN 325 MG TABLET 650 MG PO ×2 (08:15→11:48)
[2021-06-26] MEDS: LORazepam (*CRX) 1 MG TABLET PO ×2 (08:15→11:48)
[2021-06-26] MEDS: ONDANSETRON HCL ODT 4 MG TABLET PO (08:35)
[2021-06-26] MEDS: TOLNAFTATE 1% POWDER 45 GM BTL 1 APPLIC TOPICAL ×2 (12:26→22:19)
[2021-06-26] MEDS: NYSTATIN 100,000 UNITS/ML SUSP 5 ML ORAL.SUSP PO (12:26)
[2021-06-26] MEDS: MORPHINE SULFATE ORAL CONC SOL (*CRX) 10 MG/0.5 ML SYRINGE 20 MG PO ×2 (15:57→18:10)
[2021-06-26 16:00] VITALS: BP 100/66; PULSE 90; RESP 23; TEMP 36.5; O2SAT 89
[2021-06-26] MEDS: ATROPINE SULFATE 1% OPHTH SOLN 5 ML BOTTLE 1 DROP SUBLINGUAL (17:26)
[2021-06-26] MEDS: SCOPOLAMINE 1.5 MG PATCH (18:10)
--- NOTE | 2021-06-26 23:00 | PC.NURSE ---
Completed bedside change of shift report. Patient resting comfortably in bed. Patient has been unresponsive since early evening. Patient had 20 mg of oral morphine ordered Q2, but has not been able to safely swallow due to unresponsive condition. Patient appears to be comfortable, with no signs of pain or discomfort.
[2021-06-27] VITALS: BP 107/81; PULSE 85; RESP 20; TEMP 37; O2SAT 89
--- NOTE | 2021-06-27 00:10 | PC.NURSE ---
Patient continues to rest comfortably, with no signs of pain or discomfort. Patient continues to be unresponsive, and as such is not safe to swallow. Therefore, 20 mg of oral morphine ordered for 0000 was not given. This will be charted on the DEC.
--- NOTE | 2021-06-27 02:15 | PC.NURSE ---
Patient's eyes are open, and he made an attempt to respond. An attempt will be made to give 20 mg of oral morphine due at 0200.
[2021-06-27] MEDS: MORPHINE SULFATE ORAL CONC SOL (*CRX) 10 MG/0.5 ML SYRINGE 20 MG PO (02:56)
--- NOTE | 2021-06-27 02:58 | PC.NURSE ---
Patient began to choke on the oral morphine at the end of the first 10 mg. The rest of the medication was not given, as it is not safe.
--- NOTE | 2021-06-27 04:03 | PC.NURSE ---
Dr Goodwin notified of patient choking on oral Morphine. New order received to change medicine to Morphine Sulfate 4mg IM q4H.
[2021-06-27] MEDS: MORPHINE SULFATE (*CRX) 4 MG/ML INJ IM ×3 (06:21→16:40)
[2021-06-27 07:45] VITALS: PULSE 114; RESP 24; O2SAT 83
[2021-06-27] MEDS: TOLNAFTATE 1% POWDER 45 GM BTL 1 APPLIC TOPICAL (09:41)
[2021-06-27] MEDS: ATROPINE SULFATE 1% OPHTH SOLN 5 ML BOTTLE 1 DROP SUBLINGUAL ×2 (09:42→16:41)
--- NOTE | 2021-06-27 13:17 | PM.EVENT ---
Event Note Event Note Event Note: Patient is actively dying, he is unresponsive which is unlike yesterday, appears to be in a coma with irregular breathing pattern
[2021-06-27 15:45] VITALS: PULSE 126; RESP 40; O2SAT 83
--- NOTE | 2021-06-27 17:45 | PC.NURSE ---
This nurse noted patient not breathing. Pulse noted to be weak/thready and then absent. Charge nurse Yennifer notified of patients passing.Lack of heart and lung sounds verified with stethoscope by this nurse and Yennifer MOONEY. notified of patients passing.
--- NOTE | 2021-06-27 20:34 | PC.NURSE ---
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
--- NOTE | 2021-06-28 12:00 | P.DN_ITS ---
Discharge Summary Date and Time Date of : 06/27/21 Time of : 17:45 Provider Pronounced By: Dr. John Baltazar Probable Cause of Probable Cause of : failure to thrive, cecum ca Summary Hospital Course: s/p intussusception repair and weakness Additional Data Confirmation of as documented by pronouncing clinician: Pupillary Reflex, Palpable Pulses, Response to Stimuli, Heart Tones and Breath Sounds Name of Provider Notified: Dr. John Baltazar Time Provider Notified: 17:50 Provider Requests Autopsy: No Family Requests Autopsy: No Date [facility] Notified of : 06/27/21 Time [facility] Notified of : 18:00
== END 2021-06-27 20:25 | disposition expired | DRG 948 ==
PROVIDERS: Admitting Provider Emergency Medicine; PCP Family Medicine; Visit Provider Emergency Medicine
DX: R53.1 Weakness (principal); C18.0 Malignant neoplasm of cecum; B37.0 Candidal stomatitis; R62.7 Adult failure to thrive; J44.9 Chronic obstructive pulmonary disease, unspecified; I12.9 Hypertensive chronic kidney disease with stage 1 through stage 4 chronic kidney disease, or unspecified chronic kidney disease; N18.30 Chronic kidney disease, stage 3 unspecified; N40.0 Benign prostatic hyperplasia without lower urinary tract symptoms; L98.9 Disorder of the skin and subcutaneous tissue, unspecified; R19.7 Diarrhea, unspecified; Z90.49 Acquired absence of other specified parts of digestive tract; Z86.73 Personal history of transient ischemic attack (TIA), and cerebral infarction without residual deficits; Z51.5 Encounter for palliative care
CPT/HCPCS: 97110; 97163; 97165; 97530; A9270; J1650; J2270